=== PATIENT | female | born 1955 | race Caucasian/White ===

== ENCOUNTER 2018-03-19 07:41 | Day surgery (SDC) | payer OTHER, SELFPAY ==
[2018-03-19 08:26] VITALS: BMI 20.1
[2018-03-19 08:33] VITALS: BP 127/80; PULSE 69; RESP 12; TEMP 36.9; O2SAT 100
[2018-03-19] MEDS: SODIUM CHLORIDE 0.9% 1,000 ML 21 ML IV (10:00)
--- NOTE | 2018-03-19 10:12 | P.HP_ITS ---
History of Present Illness Date Patient Seen: 03/19/18 Time Patient Seen: 10:09 Chief complaint: [id number] Narrative: Patient is a woman whose last colonoscopy was 10 years ago she is here for colonoscopy. She is post liver transplant. She has been having some left-sided abdominal discomfort and the [facility] where she is followed insisted she have a colonoscopy. 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) Surgical History Liver transplant recipient (Chronic) History of third molar tooth extraction Status post appendectomy Status post cholecystectomy Status post tonsillectomy and adenoidectomy Family & Social History Family History: Reviewed 03/19/18 by Alex Turcios MD Social History: household members spouse Meds Home Medications Medication Instructions Recorded Confirmed Type Diphenhydramine Hydrochloride 25 mg PO Q DAY #0 05/12/12 03/19/18 History (BENADRYL) metoprolol tartrate 50 mg PO BID #0 05/12/12 03/19/18 History tacrolimus 1 mg PO BID #0 05/12/12 03/19/18 History estradiol [Vagifem] 10 mcg VG SEE INSTRUCTIONS #36 tab 08/11/17 03/19/18 Rx multivitamin 1 tab PO DAILY 03/19/18 03/19/18 History Allergies Allergy/AdvReac Type Severity Reaction Status Date / Time Sulfa (Sulfonamide Allergy Unknown Nausea Verified 03/19/18 08:23 Antibiotics) Review of Systems Review of Systems All systems reviewed & are unremarkable except as noted in HPI and below Exam Vital Signs (past 8 hours): - 03/19/18 08:33 Temperature 98.5 F Pulse Rate 69 Respiratory Rate 12 Blood Pressure 127/80 Pulse Oximetry 100 Oxygen Delivery Method Room Air Narrative Exam Narrative: Operative no apparent distress. Thin. Lungs clear to auscultation without rales or rhonchi. Heart regular rate and rhythm without murmur gallop. Abdomen several incision the upper abdomen. No hernias appreciated. Abdomen is soft nontender without mass. No hernias appreciated. Alert and oriented x3. Assessment & Plan Plan: Assessment/Plan Narrative: For screening colonoscopy. I have discussed the procedure and the rationale with the patient including risks of bleeding, perforation which would necessitate a major operation, failure to find remove all lesions and the potential to tattoo. They appeared to understand and wished to proceed.
--- NOTE | 2018-03-19 10:13 | PM.PREOP ---
Pre-operative Note Interval Note Pre-op Check: Yes History & Physical exam performed today by Physician Changes: No ASA Class (for procedural sedation): III
[2018-03-19] MEDS: MIDAZOLAM 5 MG/5 ML VIAL IV (10:15)
[2018-03-19] MEDS: fentaNYL 250 MCG/5 ML INJ IV (10:16)
--- NOTE | 2018-03-19 10:56 | P.OP.ENDO_ITS ---
Operative Date/Time/Diagnoses Date of procedure: 03/19/18 Time of procedure: 10:49 Pre-op diagnosis: Screening exam. History of colonoscopy 10 years ago. Post-op diagnosis: same Procedure & Clinicians Study performed: Colonoscopy Same procedure as scheduled: Yes Indications: Screening. Patient is immunosuppressed due to a liver transplant. Procedure Notes SCOAP/Timeout: Performed Procedure in detail: The patient was placed in the left lateral decubitus position and underwent IV sedation directed by the surgeon consisting of fentanyl and Versed. Digital exam was remarkable for some small tags. The scope was inserted and advanced through the rectum into the sigmoid, descending , transverse, and ascending colon. The patient seemed to have was some loss of haustra and also a little bit pale mucosa. Advancing was quite difficult through much of this area due to redundancy. Pressure was applied, the patient was repositioned, the scope stiffener was inserted, all in an effort to get to the cecum.. The cecum was reached identified by the ileocecal valve and the appendiceal opening. The scope was gradually brought out. No polyps were found. The scope ultimately was retroflexed in the rectum. The appearance was remarkable for some scarring at the anus but no active disease. I did note on egress Ng that the patient appeared to have fairly friable mucosa. My insertion pressures were not that great and yet she had multiple areas of traumatized mucosa which was a bit unusual.. The scope was removed and the patient tolerated the procedure well. Patient had no abdominal pain at completion of the exam. Scope withdrawal time: About 8 and 0.5 min Sedation minutes: 34 Findings: other findings (Redundant colon. Easily traumatized mucosa.) Specimen(s): none sent Complications: none Recommendations: Other recommendation (As per the recommendation of your transplant team. Certainly no later than 10 years however. Probably much sooner like 5 years.) Follow up: as needed Disposition: PACU
[2018-03-19 11:11] VITALS: BP 95/66; PULSE 64; RESP 15; TEMP 36.7; O2SAT 98
[2018-03-19 11:46] VITALS: BP 103/65; PULSE 73; RESP 16; TEMP 36.8; O2SAT 98
[2018-03-19 12:10] VITALS: BP 113/66; PULSE 72; RESP 16; TEMP 36.6; O2SAT 98
--- NOTE | 2018-03-19 15:56 | SUR.PHASEII ---
Addendum entered by Petty Tamez R.N. 03/19/18 15:57: when ready and left in stable condition. once pt left unit, stated she got nauseated on ride to car, got into car and vomited clear yellow liquid, was notified by er staff of problem, went out to see pt, pt by then stated she felt better, was not diphoretic, lips pink in color. hr regular. pt stated she wanted to go home, pt left in car. Original Note: late entry: pt was ready to go, assisted to dress by , pt left w
== END 2018-03-19 12:35 | disposition home or self-care (01) ==
PROVIDERS: PCP Family Medicine; Visit Provider Specialist
PROC: 0DJD8ZZ Inspection of Lower Intestinal Tract, Via Natural or Artificial Opening Endoscopic (ICD-10-PCS; CPT 45378; principal; 2018-03-19 08:45)
DX: Z12.11 Encounter for screening for malignant neoplasm of colon (principal); Z94.4 Liver transplant status
CPT/HCPCS: 45378; 99152; 99153; J2250; J3010

== ENCOUNTER → 2020-01-30 11:08 | Outpatient (CLI) | payer OTHER, SELFPAY ==
--- NOTE | 2020-01-30 | DI.US.S_ITS ---
PROCEDURE: US PELVIC COMPLETE INDICATIONS: POSTMENUPAUSAL BLEEDING TECHNIQUE: Real-time scanning was performed of the pelvic organs, with image documentation. Additional endovaginal scanning was necessary due to incomplete visualization of the adnexal and endometrial structures by transabdominal scanning. COMPARISON: None. FINDINGS: Transabdominal scanning: Limited scanning through the kidneys shows no hydronephrosis. A small amount of free fluid can be seen within the cul-de-sac as well as within the left adnexal region. Endovaginal scanning: Uterus: Uterus is normal in size at 7.7 x 3.6 x 4.8 cm. The endometrium measures 5 mm in combined thickness. Echogenic foci can be seen along the cervix, which are attributed to calcification. Ovaries: The right ovary measures 2.2 x 0.9 x 2.2 cm. The left ovary measures 2.3 x 1.4 x 1.3 cm. The ovaries have a normal sonographic appearance. No adnexal masses are seen. Prominent vessels can be seen within the pelvis. IMPRESSION: The endometrial stripe is minimally thickened in this patient with a given history of postmenopausal bleeding. Differential diagnosis includes endometrial neoplasm and endometrial hyperplasia. Recommend correlation with endometrial histology, as clinically appropriate. A mild amount of free fluid can be seen within the pelvis, which is abnormal for a patient of this age. No adnexal masses are seen. Prominent vessels can be seen within the pelvis, which may be related to pelvic varices. Dictated by: Chris Grissom M.D. on 01/30/2020 at 11:47 Approved by: Chris Grissom M.D. on 01/30/2020 at 11:50
== END ==
PROVIDERS: PCP Obstetrics & Gynecology; Referring Provider Family Medicine; Visit Provider Family Medicine
DX: N95.0 Postmenopausal bleeding (principal)
CPT/HCPCS: 76830; 76856

== ENCOUNTER 2020-02-13 01:28 | Emergency (ER) | payer OTHER, SELFPAY ==
--- NOTE | 2020-02-13 01:35 | ED.FALL ---
HPI - Fall General Chief Complaint: Fall Stated Complaint: left ankle injury/hit head and left elbow Time Seen by Provider: 02/13/20 01:33 Source: patient and family Mode of arrival: Wheelchair Limitations: no limitations History of Present Illness HPI Narrative: 64-year-old female nonsmoker with history of hypertension and liver transplant presents with her in the chief complaint left elbow and left ankle pain after a fall injury just prior to arrival. She was caring a new puppy and misstepped on the last stair and fell down, landing on her left elbow and rolling her ankle. She denies any head, neck or back pain. She had no loss of consciousness and has full recall. She denies any chest pain or shortness of breath. She has had no blurred vision or focal neurologic findings. She does not take any blood thinners and denies use of alcohol or street drugs. Initially her left elbow did hurt all that bad but has some increasing discomfort which is worse with range of motion and improves with rest. Her primary concern is of the lateral portion of her left ankle which hurts significantly worse with ambulation or palpation. MD complaint: fall Onset (ago): minute(s) Fall from: standing and down stairs (#) (1) Fall witnessed: no Place fall occurred: home Loss of consciousness: none Prolonged down time: no Symptoms prior to fall: none Context: tripped/slipped Severity: mild Quality: aching Associated symptoms (after fall): denies Related Data Home Medications Medication Instructions Recorded Confirmed Diphenhydramine Hydrochloride 25 mg PO Q DAY #0 05/12/12 02/02/20 (BENADRYL) metoprolol tartrate 50 mg PO BID #0 05/12/12 02/02/20 tacrolimus 1 mg PO BID #0 05/12/12 02/02/20 multivitamin 1 tab PO DAILY 03/19/18 02/02/20 Previous Rx's Medication Instructions Recorded estradiol 10 mcg vaginal tablet 10 mcg VAGINAL 3XW #36 tab 10/03/19 Allergies Allergy/AdvReac Type Severity Reaction Status Date / Time Sulfa (Sulfonamide Allergy Unknown Nausea Verified 02/02/20 16:12 Antibiotics) fentanyl AdvReac Severe nausea and Verified 02/02/20 16:12 vomiting Review of Systems Constitutional Constitutional: Denies chills, Denies fatigue, Denies fever(s), Denies frequent falls, Denies lethargy and Denies weakness Eyes Eyes: Denies change in vision, Denies eye discharge, Denies irritation and Denies loss of vision ENT Ears, Nose, Mouth, and Throat: Denies change in voice, Denies dizziness, Denies neck pain, Denies sore throat and Denies throat swelling Cardiovascular Cardiovascular: Denies chest pain, Denies irregular heart rhythm, Denies lightheadedness, Denies palpitations, Denies dyspnea, Denies dyspnea on exertion and Denies orthopnea Respiratory Respiratory: Denies cough, Denies dyspnea, Denies dyspnea on exertion and Denies wheezing Gastrointestinal Gastrointestinal: Denies abdominal pain, Denies change in bowel habits, Denies diarrhea, Denies nausea and Denies vomiting Musculoskeletal Musculoskeletal: Reports deformity, Reports arthralgias, Reports joint swelling, Denies neck pain and Denies numbness Integumentary/Breasts Skin/Breast: Denies pruritus, Denies erythema, Denies rash and Denies wounds Neurologic Neurologic: Denies behavioral changes, Denies confusion, Denies dizziness, Denies frequent falls, Denies loss of vision, Denies numbness and Denies weakness Psychiatric Psychiatric: Denies anxiety, Denies behavioral changes, Denies confusion, Denies depression, Denies homicidal ideation and Denies suicidal ideation Endocrine Endocrine: Denies fatigue, Denies flushing and Denies palpitations Hematologic/Lymphatic Hematologic/Lymphatic: Denies easy bruising Allergic/Immunologic Allergic/Immunologic: Denies urticaria, Denies throat swelling and Denies wheezing 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) Surgical History History of third molar tooth extraction Liver transplant recipient (Chronic) Status post appendectomy Status post cholecystectomy Status post tonsillectomy and adenoidectomy Social History household members: spouse Smoking Status: Never smoker Smoking Status: Never smoker Exam Initial Vital Signs Initial Vital Signs: Vital Signs Temperature 98.3 F 02/13/20 01:43 Pulse Rate 70 02/13/20 01:43 Respiratory Rate 18 02/13/20 01:43 Blood Pressure 164/90 H 02/13/20 01:43 Pulse Oximetry 98 02/13/20 01:43 Procedures Orthopedic Splinting/Casting Injury #1: Side: left Lower Extremity Injury Location: ankle Lower Extremity Immobilizer: boot orthosis Post splinting neuro exam: intact Post splinting vascular exam: intact Placed by: Nursing Course Orders Ordered: ED Orders 02/13/20 01:54 XR ankle LT min 3V Stat XR elbow LT min 3V Stat XR foot LT min 3V Stat Vital Signs Vital signs: Vital Signs - 8 hr 02/13/20 01:43 02/13/20 02:12 Temperature 98.3 F Pulse Rate 70 Pulse Rate [Left Dorsalis Pedis] 68 Pulse Rate [Left Radial] 68 Respiratory Rate 18 Blood Pressure 164/90 H Pulse Oximetry 98 Discharge Plan Departure Patient Disposition: Home Clinical Impression: Contusion of elbow Qualifiers: Encounter type: initial encounter Laterality: left Qualified Code(s): S50.02XA - Contusion of left elbow, initial encounter Ankle fracture, left Qualifiers: Encounter type: initial encounter Fracture type: closed Qualified Code(s): S82.892A - Other fracture of left lower leg, initial encounter for closed fracture Discharge Date/Time: 02/13/20 02:57 Instructions: How to Prevent Falls Activity Restrictions/Additional Instructions: *You have been diagnosed with [small fracture of your left distal fibula, contusion of left elbow as a consequence of your fall] *What to do: *Take medications as directed *Follow up with your primary care provider in 2-3 days, call for an appointment. Let them know you were seen in the Emergency Department and that we ask that you be seen in follow up *Return to ER if you should have any new, worsening or concerning symptoms Radiographic study has been interpreted by an emergency physician. The official diagnosis by radiology will be performed within the next 24 hours and should there be any change in outcome we will notify you of how to proceed. Prescriptions: No Action tacrolimus 1 MG capsule 1 mg PO BID Qty: 0 RF: 0 metoprolol tartrate 50 MG tablet 50 mg PO BID Qty: 0 RF: 0 Diphenhydramine Hydrochloride (BENADRYL) 25 mg PO Q DAY Qty: 0 RF: 0 estradiol [Vagifem] 10 mcg tablet 10 mcg Vaginal 3XW Qty: 36 RF: 3 multivitamin Tablet 1 tab PO DAILY RF: 0 Referrals: Mary Armstrong MD [Primary Care Provider] -
[2020-02-13 01:43] VITALS: BP 164/90; PULSE 70; RESP 18; TEMP 36.8; O2SAT 98; BMI 23.0
--- NOTE | 2020-02-13 01:54 | DI.RAD.S_ITS ---
PROCEDURE: XR ANKLE LT MIN 3V INDICATIONS: fall with pain TECHNIQUE: 3 views of the ankle were acquired. COMPARISON: [facility], CR, XR FOOT LT MIN 3V, 02/13/2020, 1:58. [facility], CR, XR ELBOW LT MIN 3V, 02/13/2020, 1:58. FINDINGS: Bones: There is a faintly seen, minimally displaced fracture of the distal fibula, with likely intra-articular involvement. No additional fractures are detected. The talar dome demonstrates no bib abnormality. No suspicious lytic or blastic lesions are seen. Soft tissues: Soft tissue swelling is seen laterally. IMPRESSION: Minimally displaced distal fibular fracture. Note: No significant discrepancy from the preliminary report. Dictated by: Chris Grissom M.D. on 02/13/2020 at 8:20 Approved by: Chris Grissom M.D. on 02/13/2020 at 8:21
--- NOTE | 2020-02-13 01:54 | DI.RAD.S_ITS ---
PROCEDURE: XR ELBOW LT MIN 3V INDICATIONS: fall with pain TECHNIQUE: 3 views of the elbow were acquired. COMPARISON: [facility], CR, XR FOOT LT MIN 3V, 02/13/2020, 1:58. [facility], CR, XR ANKLE LT MIN 3V, 02/13/2020, 1:58. FINDINGS: Bones: No fractures or dislocations. No suspicious bony lesions. Soft tissues: No elbow joint effusion. No suspicious soft tissue calcifications. IMPRESSION: Normal elbow plain films. Note: No significant discrepancy from the preliminary report. Dictated by: Chris Grissom M.D. on 02/13/2020 at 8:21 Approved by: Chris Grissom M.D. on 02/13/2020 at 8:21
--- NOTE | 2020-02-13 01:54 | DI.RAD.S_ITS ---
PROCEDURE: XR FOOT LT MIN 3V INDICATIONS: fall with pain TECHNIQUE: 3 views of the foot were acquired. COMPARISON: [facility], CR, XR ANKLE LT MIN 3V, 02/13/2020, 1:58. [facility], CR, XR ELBOW LT MIN 3V, 02/13/2020, 1:58. FINDINGS: Bones: There is a minimally displaced distal fibular fracture seen, with apparent intra-articular involvement. No additional fractures are detected. No suspicious lytic or blastic lesions are seen. Age-appropriate bony degenerative changes are seen. Soft tissues: No tibiotalar joint effusion. Achilles tendon appears normal. IMPRESSION: Minimally displaced distal fibular fracture. Dictated by: Chris Grissom M.D. on 02/13/2020 at 8:22 Approved by: Chris Grissom M.D. on 02/13/2020 at 8:22
[2020-02-13 02:12] VITALS: PULSE 68
== END 2020-02-13 02:57 | disposition home or self-care (01) ==
PROVIDERS: Emergency Provider Emergency Medicine; PCP Obstetrics & Gynecology
DX: S82.832A Other fracture of upper and lower end of left fibula, initial encounter for closed fracture (principal); S50.02XA Contusion of left elbow, initial encounter; W10.8XXA Fall (on) (from) other stairs and steps, initial encounter
CPT/HCPCS: 73080; 73610; 73630; 99283

== ENCOUNTER → 2020-04-02 10:16 | Outpatient (CLI) | payer OTHER, SELFPAY ==
[2020-04-03 22:28] LABS: COVID19 Sendout Not Detected (Not Detect)
== END ==
PROVIDERS: Visit Provider Physician Assistant
DX: Z11.59 Encounter for screening for other viral diseases (principal)
CPT/HCPCS: 87635

== ENCOUNTER 2020-04-05 08:30 | Day surgery (SDC) | payer OTHER, SELFPAY ==
[2020-04-02 07:51] VITALS: BMI 21.1
[2020-04-05] VITALS (16 sets, daily range): BP systolic 85–147; BP diastolic 51–84; PULSE 65–82; RESP 12–20; TEMP 36.2–37; O2SAT 90–100; BMI 20.4
--- NOTE | 2020-04-05 | PATH_ITS ---
[facility] Accession Number: [id number] . 01 Material submitted: . PART A: endometrium - ENDOMETRIAL CURETTINGS PART B: endocervix - ENDOCERVICAL CURETTINGS . 02 Diagnosis: A. Endometrial Curettings: Avulsed portions of squamous mucosa, favor reactive/atrophic change; negative for squamous dysplasia or malignancy. Scant strips of endometrial glandular epithelium in a background of fibroinflammatory debris and blood, suggestive of atrophic change; please see comment. Additional levels through the block are noncontributory. . B. Endocervical Curettings: Scant glandular elements, favor origin from endocervix; negative for glandular dysplasia or malignancy. Please see comment. Possible portions of lower uterine segment; negative for glandular hyperplasia, cytologic atypia, or malignancy. Additional levels through the block are noncontributory. [facility] 04/10/2020 1634 Local . 02 Comment: A. Due to the scant nature of this biopsy, it may not be entirely sales representative meats of this patient's endometrium; additional sampling could be considered, if clinically appropriate. . B. Due to the scant nature of this biopsy, it may not be entirely sales representative meats of this patient's endocervix; additional sampling could be considered, if clinically appropriate. . 02 Electronically signed: . Enedina Cadet MD, Pathologist NPI- [id number] . 01 Gross description: . A. Specimen A is received in formalin, labeled endometrial curettings and consists of multiple finney-pink fragments of soft tissue, measuring 0.6 x 0.5 x 0.2 cm in aggregate. The specimen is filtered and entirely submitted in cassette A1. B. Specimen B is received in formalin, labeled endocervical curettings and consists of multiple finney-pink fragments of soft tissue admixed with clotted blood, measuring 1.0 x 0.7 x 0.2 cm in aggregate. The specimen is filtered and entirely submitted in cassette B1. ([id number]) /MRV 04/06/2020 1537 Local . 02 Pathologist provided ICD-10: N82.0, N95.0 . 02 CPT . 254559, [id number] Performed at: 01 [facility] [address] [place] [address], [place], [place] [id number] MD Mohsen Arellano MD Phone: [phone] Performed at: [address] [facility] [id number] [place], [place] [id number] MD Annabelle Medeiros MD Phone: [phone]
[2020-04-05] MEDS: LACTATED RINGERS 1,000 ML 42 ML IV (09:05)
--- NOTE | 2020-04-05 09:48 | PM.HP.1 ---
History of Present Illness History of Present Illness Date Patient Seen: 04/05/20 Time Patient Seen: 09:48 Chief complaint: SDC Narrative: Patient is a 65-year-old with postmenopausal bleeding, endometrial hyperplasia, and an echogenic focus and the cervix. She is here for a D&C hysteroscopy and possible polypectomy. 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) Left fibular fracture (Acute 02/13/20) Surgical History History of third molar tooth extraction Liver transplant recipient (Chronic) Status post appendectomy Status post cholecystectomy Status post tonsillectomy and adenoidectomy Family & Social History Social History: household members spouse Tobacco & Substance use: Smoking Status Never smoker alcohol intake frequency holiday/special occasion Substance Use Type does not use Meds Home Medications and Allergies Home Medications Medication Instructions Recorded Confirmed Type Diphenhydramine Hydrochloride 25 mg PO Q DAY #0 05/12/12 04/02/20 History (BENADRYL) metoprolol tartrate 50 mg PO BID #0 05/12/12 04/05/20 History tacrolimus 0.5 mg PO BID #0 05/12/12 04/05/20 History multivitamin 1 tab PO DAILY 03/19/18 04/02/20 History estradiol 10 mcg vaginal tablet 10 mcg VAGINAL 3XW #36 tab 10/03/19 04/05/20 Rx Allergies Allergy/AdvReac Type Severity Reaction Status Date / Time fentanyl Allergy Severe nausea and Verified 04/05/20 08:54 vomiting Sulfa (Sulfonamide Allergy Unknown Nausea Verified 04/05/20 08:52 Antibiotics) codeine AdvReac Intermediate Nausea Verified 04/05/20 08:52 Exam Vital Signs (past 8 hours): - 04/05/20 09:06 Temperature 97.6 F Pulse Rate 68 Respiratory Rate 16 Blood Pressure 144/84 H Pulse Oximetry 100 Oxygen Delivery Method Room Air Narrative Exam Narrative: HEENT: No thyromegaly, no anterior cervical or supraclavicular lymphadenopathy. Lungs:Clear to auscultation bilaterally, no wheezes. Cardiovascular: Regular rate and rhythm, no murmurs, rubs, or gallops. Abdomen: No scars. No hepatosplenomegaly. No masses palpable. External genitalia: Normal Vagina: Normal Cervix: Normal Bimanual exam: 7 Week size anteverted uterus. Mobile. Rectal: No masses. Assessment & Plan Assessment & Plan narrative: Assessment: 65-year-old with endometrial hyperplasia, postmenopausal bleeding, and an echogenic focus and the cervix on ultrasound Plan: D&C hysteroscopy with possible polypectomy The risks, benefits, and alternatives to the procedure were explained to the patient. The risks including bleeding, infection, and uterine perforation. She understands these risks and agrees to proceed. A full par Q was held and consent form was signed. COVID-19 COVID-19 status: Negative Result date/Date tested (Pos, Neg/Pending): 04/03/20 Time Spent With Patient Time with patient: 15-24 minutes
--- NOTE | 2020-04-05 09:50 | PM.PREOP ---
Pre-operative Note COVID-19 COVID-19 status: Negative Result date/Date tested (Pos, Neg/Pending): 04/03/20 Interval Note History & Physical reviewed/Exam performed by Physician: Yes Changes to H&P: No H&P completed within 30 days and has changed as indicated here:: 04/05/20
--- NOTE | 2020-04-05 10:18 | SUR.OPER ---
Lithotomy on padded OR bed, head on pillow, arms secured on padded arm boards at <90 degrees abduction. Legs secured in padded yellow fins stirrups.
--- NOTE | 2020-04-05 10:40 | PM.GYNOP.1 ---
Operative Date/Time/Diagnoses Date of procedure: 04/05/20 Time of procedure: 10:40 Pre-op diagnosis: Postmenopausal bleeding Endometrial hyperplasia by ultrasound Hyperechoic area in the endocervical canal Post-op diagnosis: same Procedure & Clinicians Procedure: Procedures Operation Date: 04/05/20 09:45 Actual Procedures Side Surgeon p Hysteroscopy D&C, fractional: endocervical/endometrial Mary Armstrong MD Indications: Postmenopausal bleeding Endometrial hyperplasia on ultrasound Echogenic focus in the cervical canal on ultrasound Surgeon: Mary Armstrong Anesthesia Type: General (LMA) Operative Notes Findings: Seven week size anteverted uterus Both fallopian tube ostia observed No polyps, fibroids, or thickened areas No mass in the cervix Closure Type: not applicable Specimen(s): endometrial curettings and other (Endocervical curettings) Estimated blood loss (mL): 5 Blood products transfused: none Procedure in detail: After informed consent was obtained, the patient was taken to the operating room where she was placed in the dorsal supine position. After adequate LMA general anesthesia was achieved, she was placed in the dorsal lithotomy position, and prepped and draped in the usual sterile fashion. A time-out was performed. A bivalve speculum was placed into the vagina and the anterior lip of the cervix grasped with a single-tooth tenaculum. The cervical os was sequentially dilated to the # 8 Hegar dilator. The hysteroscope passed easily into the endometrial cavity. Both fallopian tube ostia were observed. There were no polyps, fibroids, or thickened areas of the endometrium observed. In the endocervix there were a few calcifications seen on hysteroscope. No polyps. The hysteroscope was removed from the uterus and cervix. Gentle sharp curettage of the endocervix was performed yielding moderate amount of curettings. Sharp curettage of the endometrium was performed yielding moderate amount of curettings. The instruments were removed from the uterus. The single-tooth tenaculum was removed from the anterior lip of the cervix. The bivalve speculum was removed from the vagina. Sponge, lap, and instrument counts were correct x2. The patient tolerated the procedure well, and was taken to PACU in stable condition. Complications: none Post-operative Condition: stable Disposition: PACU Plan for aftercare: Home after recovery
--- NOTE | 2020-04-05 10:55 | SUR.PHASEI ---
Pt obstructed her airway and Dr. Anne placed an oral airway in and placed a nasal cannula with O2 on her pt sleepy.
[2020-04-05] MEDS: ONDANSETRON 4 MG ODT SL (13:55)
--- NOTE | 2020-04-05 13:56 | SUR.PHASEII ---
Assumed care at this time from Torey Ivey. Stated d/c instructions had been gone over. Incentive spirometer encourage for home use, and placed in bag along with extra emisis bags. Pt dressed then had sudden onset of nausea, dry heaving, small amopunt of yellow green emisis in bag. Cool wash cloth to head, quease ease to bedside. Dr. Anne here, order for ondansetron obtained and pt medicated.
--- NOTE | 2020-04-05 14:20 | SUR.PHASEII ---
Pt stated she was ready to go, no further nausea, pt left when ready and left in stable condition.
--- NOTE | 2020-04-05 14:25 | SUR.PHASEII ---
1305, PT TOLERATING COFFEE AND APPLE SAUCE, UP TO BR TO VOID, CONTINUES TO USE INCENTIVE SPIROMETER AND COUGH AND DEEP BREATH, LUNGS CLEAR TO AUSCULTATION, NO DRAINAGE ON PAULIE PAD AND NO C/O PAIN VOICED.
== END 2020-04-05 14:15 | disposition home or self-care (01) ==
PROVIDERS: PCP Family Medicine; Referring Provider Obstetrics & Gynecology; Visit Provider Obstetrics & Gynecology
PROC: 0UDB8ZZ Extraction of Endometrium, Via Natural or Artificial Opening Endoscopic (ICD-10-PCS; CPT 58558; principal; 2020-04-05 09:45)
DX: N95.0 Postmenopausal bleeding (principal); D84.821 Immunodeficiency due to drugs
CPT/HCPCS: 58558; J1100; J1170; J1885; J2250; J2405; J2704; J3010

== ENCOUNTER 2020-04-07 00:46 | Inpatient (IN) | payer OTHER, SELFPAY ==
[2020-04-07] VITALS (40 sets, daily range): BP systolic 89–134; BP diastolic 52–77; PULSE 80–110; RESP 13–23; TEMP 36.9–38.1; O2SAT 97–100; BMI 20.1
--- NOTE | 2020-04-07 | DI.RAD.S_ITS ---
PROCEDURE: XR ACUTE ABDOMEN SERIES INDICATIONS: POST OP TECHNIQUE: One view chest and two views of the abdomen were acquired. COMPARISON: [facility], CT, CT ABDOMEN PELVIS WO CON, 04/07/2020, 5:50. FINDINGS: Surgical changes and devices: Upper abdominal postoperative clips are seen. Chest: Lungs are clear. Heart size is normal. No pleural effusions. No pneumoperitoneum. Abdomen: Generalized gaseous prominence can be seen of the small bowel and the colon, yet without bib dilatation. There is also gaseous distention of the stomach. No suspicious calcifications. Visualized solid organ contours appear normal. Bones: No suspicious bony lesions. Both ureteral jets are seen into the bladder. IMPRESSION: Generalized gaseous prominence of the stomach, small bowel, and colon, without frankly dilated loops. No significant free air is seen on these images. Upper abdominal postoperative clips are seen. Dictated by: Chris Grissom M.D. on 04/07/2020 at 10:36 Approved by: Chris Grissom M.D. on 04/07/2020 at 10:39
--- NOTE | 2020-04-07 00:53 | ED.GENADULT ---
HPI - General Adult General Chief complaint: Abdominal Pain Stated complaint: lower abdominal pain Time Seen by Provider: 04/07/20 00:49 Source: patient, family and EMS Mode of arrival: EMS Limitations: no limitations History of Present Illness HPI narrative: Patient is a 65-year-old female brought in by EMS for evaluation of a syncopal episode, fatigue, lightheadedness when she stands up and 1 episode of vomiting. Patient's history is significant for a liver transplant. She is on tacrolimus secondary to this. Also has pancytopenia and splenomegaly. Approximately 48 hours ago underwent a D&C by bit sharpener operator for of biopsy secondary to postmenopausal bleeding. Patient states that she ?always? has reactions to anesthesia which include nausea and vomiting. Review of the surgical note shows that the procedure was relatively unremarkable with minimal blood loss. Patient states she is having some lower abdominal pain that started within the past 24 hours. She describes this as a bad menstrual cramp. She is also having some vaginal spotting but no bleeding. She states that after she arrived home from the procedure she did have some nausea. She was given a prescription for a Phenergan suppository. She use this which she states did not improve her nausea all that much. She went to bed last evening and woke up several hours ago and had an episode which she describes as a very large black vomitus. She then became very dizzy. Her had to help her down to the ground. She did not hit her head. Question as to whether not she lost consciousness and if she did it was for just a very short period of time. EMS was called. She received Zofran in route. Has had no prior episodes of vomiting or nausea since receiving the Zofran. She states that she is laying down she feels much better. She has not had any diarrhea or blood in her stool. Related Data Home Medications Medication Instructions Recorded Confirmed Diphenhydramine Hydrochloride 25 mg PO Q DAY #0 05/12/12 04/02/20 (BENADRYL) metoprolol tartrate 50 mg PO BID #0 05/12/12 04/05/20 tacrolimus 0.5 mg PO BID #0 05/12/12 04/05/20 multivitamin 1 tab PO DAILY 03/19/18 04/02/20 Previous Rx's Medication Instructions Recorded estradiol 10 mcg vaginal tablet 10 mcg VAGINAL 3XW #36 tab 04/27/20 ondansetron HCl [Zofran] 4 mg PO Q6H #7 tab 04/05/20 promethazine 25 mg MO Q4-6H PRN #1 each 04/05/20 Allergies Allergy/AdvReac Type Severity Reaction Status Date / Time fentanyl Allergy Severe nausea and Verified 04/05/20 08:54 vomiting Sulfa (Sulfonamide Allergy Unknown Nausea Verified 04/05/20 08:52 Antibiotics) codeine AdvReac Intermediate Nausea Verified 04/05/20 08:52 Review of Systems Constitutional Constitutional: Denies fever(s) and Denies headache(s) ENT Ears, Nose, Mouth, and Throat: Denies headache(s) Cardiovascular Cardiovascular: Denies chest pain and Denies dyspnea Respiratory Respiratory: Denies dyspnea Gastrointestinal Gastrointestinal: Reports abdominal pain, Denies change in bowel habits, Reports coffee ground emesis, Reports nausea and Reports vomiting Genitourinary Genitourinary: Denies dysuria Genitourinary: Denies dysuria and Reports vaginal discharge (Spotting) Musculoskeletal Musculoskeletal: Denies arthralgias, Denies back pain and Denies myalgias Integumentary/Breasts Skin/Breast: Denies lesions and Denies rash Neurologic Neurologic: Denies behavioral changes and Denies headache(s) Psychiatric Psychiatric: Denies behavioral changes Hematologic/Lymphatic Hematologic/Lymphatic: Denies easy bleeding and Denies easy bruising Allergic/Immunologic Allergic/Immunologic: Denies urticaria 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) Left fibular fracture (Acute 02/13/20) Post-menopausal bleeding (Acute) Primary biliary cholangitis (Acute) Surgical History History of third molar tooth extraction Liver transplant recipient (Chronic) Status post appendectomy Status post cholecystectomy Status post D&C (Acute) Status post tonsillectomy and adenoidectomy Family History (Updated 04/07/20 @ 04:17 by Jimenez Hawthorne MD) Mother Dementia Father Alzheimer disease Social History household members: spouse Smoking Status: Never smoker Smoking Status: Never smoker alcohol intake frequency: holidays/special occasions only Substance Use Type: does not use Exam Initial Vital Signs Initial Vital Signs: Vital Signs Temperature 98.8 F 04/07/20 00:53 Pulse Rate 84 04/07/20 00:53 Respiratory Rate 16 04/07/20 00:53 Blood Pressure 93/62 04/07/20 00:53 Pulse Oximetry 100 04/07/20 00:53 Const General: cooperative and comfortable Limitations: mental status not altered HENMT Head: normal to inspection and normocephalic Resp Effort & Inspection: normal respiratory effort Auscultation: clear to auscultation bilaterally Cardio Rate: regular rate Rhythm: regular rhythm GI Inspection: non-distended Palpation: soft and tender (Lower abdomen) Skin General: pallor Lesions: no lesions Rashes: no rashes Neuro General: patient alert, patient awake and patient oriented x3 Cognition: normal cognition Speech: speech normal Extrem General: capillary refill normal Psych Appearance: grossly normal and well kempt Scores GCS Samina coma scale eye opening: Spontaneous Samina coma scale verbal response: Orientated [place] coma scale motor response: Obey commands Samina coma scale total score: 15 Course Orders Ordered: ED Orders 04/07/20 00:53 Complete Blood Count AUTO DIFF Stat Comprehensive Metabolic Panel Stat Lipase Stat Procalcitonin Stat 04/07/20 00:54 EKG-12 Lead Stat 04/07/20 01:20 Packed Cells Stat Type and Screen Stat 04/07/20 02:20 COVID19 -ED/INPAT/OR/L&D Stat 04/07/20 02:36 US pelvic complete Stat 04/07/20 02:53 Consult to General Surgery Stat 04/07/20 03:40 Lactate (Lactic Acid) Stat 04/07/20 03:45 Blood Culture Stat Pantoprazole Sodium 80 mg/ (Sodium Chloride) 100 mls @ 10 mls/hr IV CONT JUAN Last Admin: 04/07/20 01:50 Dose: 8 mg/hr, 10 mls/hr Documented by: KGALLAG Sodium Chloride (Normal Saline 0.9%) 1,000 mls @ 100 mls/hr IV CONT JUAN Naloxone HCl (Narcan) 0.2 mg IV Q2MIN PRN PRN Reason: Opiate Reversal Pantoprazole Sodium (Protonix) 40 mg IV DAILY JUAN Tacrolimus (Prograf) 0.5 mg PO BID JUAN Discontinued Medications Sodium Chloride (Normal Saline 0.9%) 1,000 mls @ 1,000 mls/hr IV BOLUS ONE Stop: 04/07/20 01:52 Last Infusion: 04/07/20 02:00 Dose: 0 mls/hr Documented by: Admin: 04/07/20 01:00 Dose: 1,000 mls/hr Documented by: TONY Pantoprazole Sodium (Protonix) 80 mg IV NOW ONE Stop: 04/07/20 01:38 Last Admin: 04/07/20 01:50 Dose: 80 mg Documented by: FLORA Vital Signs Vital signs: Vital Signs - 8 hr 04/07/20 00:53 04/07/20 01:08 04/07/20 01:25 Temperature 98.8 F Pulse Rate 84 81 93 H Respiratory Rate 16 18 18 Blood Pressure 93/62 90/55 L 94/52 L Pulse Oximetry 100 100 04/07/20 01:30 04/07/20 02:00 04/07/20 02:30 Temperature Pulse Rate 80 86 85 Respiratory Rate 15 18 13 Blood Pressure 101/55 L 106/58 L 96/56 L Pulse Oximetry 04/07/20 03:02 04/07/20 03:20 04/07/20 03:30 Temperature 99 F 99 F Pulse Rate 99 H 90 88 Respiratory Rate 15 20 19 Blood Pressure 95/55 L 134/60 100/59 L Pulse Oximetry 98 100 Medical Decision Making Medical Records Medical records reviewed: Yes I reviewed the patient's medical records. Lab Data Lab results reviewed: Yes I reviewed the patient's lab results. Result diagrams: 04/07/20 00:53 04/07/20 00:53 Labs: Lab Results 04/07/20 04/07/20 04/07/20 Range/Units 00:53 00:53 00:53 WBC 12.5 H (4.5-11.0) X10^3/uL RBC 2.48 L (4.0-5.2) X10^6/uL Hgb 7.4 L (12.0-16.0) g/dL Hct 22.5 L (36-46) % MCV 90.7 (80-100) fL MCH 29.9 (26-34) PG MCHC 33.0 (30-36) % RDW 13.9 (11.6-14.8) % Plt Count 159 (150-400) X10^3/uL Neut % (Auto) 79.3 H (50-75) % Lymph % (Auto) 10.7 L (25-40) % [place] % (Auto) 8.5 (3-14) % Eos % (Auto) 1.0 L (2-4) % Baso % (Auto) 0.5 (0-2) % Neut # (Auto) 28803 H (1635-8639) /uL Lymph # (Auto) 1300 (2914-4649) /uL [place] # (Auto) 1100 H (0-900) /uL Eos # (Auto) 100 (0-450) /uL Baso # (Auto) 100 (0-100) /uL Sodium 138 (137-145) mmol/L Potassium 4.6 (3.4-5.1) mmol/L Chloride 106 (98-107) mmol/L Carbon Dioxide 29 (22-32) mmol/L BUN 74 H (7-17) mg/dL Creatinine 1.38 H (0.52-1.04) mg/dL Estimated GFR 38.6 L (>60) mL/min BUN/Creatinine Ratio 53.6 H (6-22) Glucose 123 H (80-110) mg/dL Calcium 8.4 (8.4-10.2) mg/dL Total Bilirubin 0.6 (0.2-1.3) mg/dL AST 32 (14-36) IU/L ALT 30 (<35) IU/L Alkaline Phosphatase 79 (38-126) U/L Total Protein 6.3 (6.3-8.2) g/dL Albumin 3.2 L (3.5-5.0) g/dL Globulin 3.1 (1.7-4.1) g/dL Albumin/Globulin Ratio 1.0 (1.0-2.8) Lipase 103 (23-300) U/L Procalcitonin 0.16 (<0.5) ng/mL COVID-19 PCR (Negative) Blood Type Antibody Screen Crossmatch 04/07/20 04/07/20 Range/Units 01:20 02:20 WBC (4.5-11.0) X10^3/uL RBC (4.0-5.2) X10^6/uL Hgb (12.0-16.0) g/dL Hct (36-46) % MCV (80-100) fL MCH (26-34) PG MCHC (30-36) % RDW (11.6-14.8) % Plt Count (150-400) X10^3/uL Neut % (Auto) (50-75) % Lymph % (Auto) (25-40) % [place] % (Auto) (3-14) % Eos % (Auto) (2-4) % Baso % (Auto) (0-2) % Neut # (Auto) (6783-0826) /uL Lymph # (Auto) (2428-1579) /uL [place] # (Auto) (0-900) /uL Eos # (Auto) (0-450) /uL Baso # (Auto) (0-100) /uL Sodium (137-145) mmol/L Potassium (3.4-5.1) mmol/L Chloride (98-107) mmol/L Carbon Dioxide (22-32) mmol/L BUN (7-17) mg/dL Creatinine (0.52-1.04) mg/dL Estimated GFR (>60) mL/min BUN/Creatinine Ratio (6-22) Glucose (80-110) mg/dL Calcium (8.4-10.2) mg/dL Total Bilirubin (0.2-1.3) mg/dL AST (14-36) IU/L ALT (<35) IU/L Alkaline Phosphatase (38-126) U/L Total Protein (6.3-8.2) g/dL Albumin (3.5-5.0) g/dL Globulin (1.7-4.1) g/dL Albumin/Globulin Ratio (1.0-2.8) Lipase (23-300) U/L Procalcitonin (<0.5) ng/mL COVID-19 PCR Negative (Negative) Blood Type O Negative Antibody Screen Negative Crossmatch See Detail Urine Dip Bedside Urine Glucose Negative Bedside Urine Bilirubin - Negative Bedside Urine Ketone - Negative Urine Specific Duncan 1.015 Bedside Urine Occult Blood +/- Bedside Urine pH 6.0 Bedside Urine Protein - Negative Bedside Urine Urobilinogen - Negative Bedside Urine Nitrite - Negative Bedside Urine Leukocytes - Negative Esterase Point of care testing: Urine Dip Bedside Urine Glucose Negative Bedside Urine Bilirubin - Negative Bedside Urine Ketone - Negative Urine Specific Duncan 1.015 Bedside Urine Occult Blood +/- Bedside Urine pH 6.0 Bedside Urine Protein - Negative Bedside Urine Urobilinogen - Negative Bedside Urine Nitrite - Negative Bedside Urine Leukocytes - Negative Esterase Imaging Data US - SUPERVISOR DELIVERY DEPARTMENT: Radiologist's Impression: Moderate amount of fluid with debris/tissue in the endometrial, no evidence of hypervascularity, endometrial neoplasm cannot be ruled out the parents could be secondary to resolving hemorrhage. Unremarkable over his ECG Data Attestation: I personally reviewed and interpreted this ECG as follows: Prior ECG tracings: not available for review Interpretation: Sinus rhythm Ventricular rate is 79 Normal axis Normal QRS Normal QTC Nonspecific ST T wave changes MDM Narrative Medical decision making narrative: Patient is alert and oriented. Somewhat pale upon arrival. Systolic blood pressure upon arrival in the 90s however she is not tachycardic. She is on metoprolol secondary to the hypertension that is caused by her Tacrolimus. Patient has had no further vomiting since arrival here in the ER and she states the Zofran that she received by EMS seems to have helped that. She does have lower abdominal tenderness and only a very small amount of vaginal bleeding which I suspect is expected after her procedure couple days ago. Did discuss the case with Dr. Armstrong with bit sharpener operator who states that she has low concerned that there was any perforation or excessive blood loss. Review the patient's labs shows that her last H&H year was 2015. I was able to obtain some records from [facility] however these were from more than 1 year ago. I then talked to the [facility] where she receives her care secondary to her liver transplant and a most recent hemoglobin and hematocrit from February 27 was 10.5/30. Patient states she has had reflux in the past. She was started on Protonix. I did discuss the case with liver specialist at the [facility] who stated that the patient has no reported history of varices. Given her drop in hemoglobin and hematocrit in her syncopal episodes in her hypertension Advil the patient needs transfused with blood. Patient has had a transfusion in the past and understands the risks and benefits. Patient was given leuko reduced blood. I discussed the case with Dr. Vera with General surgery to agree to see the patient upon admission. And then discuss the case with Dr. Hawthorne with Medicine who will admit the patient to the ICU given her blood pressures. Pelvic ultrasound ordered to evaluate potential in cause of her bleeding. Critical Care Time Critical Care Time Critical Care Time: Yes Total Critical Care Time: 50 Attestation: The high probability of a clinically significant, sudden or life threatening deterioration of the circulatory, GI system(s) required my full and direct attention, intervention and personal management. The aggregate critical care time was by 50 minutes. This time is in addition to time spent performing reported procedures but includes the following: [x] Data Review and interpretation [x] Patient assessment and monitoring of vital signs [x] Documentation [x] Medication orders and management Discharge Plan Departure Patient Disposition: Admitted As Inpatient Clinical Impression: Acute GI bleeding, Syncope Anemia Qualifiers: Anemia type: unspecified type Qualified Code(s): D64.9 - Anemia, unspecified Hypotension Qualifiers: Hypotension type: unspecified hypotension type Qualified Code(s): I95.9 - Hypotension, unspecified Referrals: Sharon Darnell DO [Primary Care Provider] - Admit Date/Time: 04/07/20 03:36 Admit Provider: Jimenez Hawthorne
[2020-04-07] MEDS: SODIUM CHLORIDE 0.9% 1,000 ML 1000 ML IV ×2 (01:00→05:32)
[2020-04-07 01:01] LABS: Add Manual Diff / Slide Review NO; Basophils Absolute Auto 100 /uL (0-100); Basophils Percent Auto 0.5 % (0-2); Eosinophils Absolute Auto 100 /uL (0-450); Hemoglobin 7.4 g/dL (12.0-16.0); Lymphocytes Absolute Auto 1300 /uL (1100-4500); Lymphocytes Percent Auto 10.7 % (25-40); Mean Corpuscular Hemoglobin 29.9 PG (26-34); Mean Corpuscular Volume 90.7 fL (80-100); Monocytes Absolute Auto 1100 /uL (0-900); Monocytes Percent Auto 8.5 % (3-14); Neutrophils Absolute Auto 10000 /uL (1500-7000); Neutrophils Percent Auto 79.3 % (50-75); Platelet Count 159 X10^3/uL (150-400); Red Blood Cell Count 2.48 X10^6/uL (4.0-5.2); Red Cell Distribution Width 13.9 % (11.6-14.8); White Blood Cell Count 12.5 X10^3/uL (4.5-11.0)
[2020-04-07 01:05] LABS: Hematocrit 22.5 % (36-46)
--- NOTE | 2020-04-07 01:05 | PC.NURSE ---
Patient reports one round of coffee ground bloody emesis this afternoon approximately 1530pm.
[2020-04-07 01:12] LABS: Alanine Aminotransferase 30 IU/L (<35); Albumin 3.2 g/dL (3.5-5.0); Alkaline Phosphatase 79 U/L (38-126); Aspartate Aminotransferase 32 IU/L (14-36); BUN Creatinine Ratio 53.6 (6-22); Bilirubin Total 0.6 mg/dL (0.2-1.3); Blood Urea Nitrogen 74 mg/dL (7-17); Calcium 8.4 mg/dL (8.4-10.2); Carbon Dioxide 29 mmol/L (22-32); Chloride 106 mmol/L (98-107); Estimated Glomerular Filt Rate 38.6 mL/min (>60); Globulin 3.1 g/dL (1.7-4.1); Glucose 123 mg/dL (80-110); HEMOLYSIS < 15 (0-50); Lipase 103 U/L (23-300); Potassium 4.6 mmol/L (3.4-5.1); Sodium 138 mmol/L (137-145); Total Protein 6.3 g/dL (6.3-8.2)
[2020-04-07] MEDS: PANTOPRAZOLE 80 MG in SODIUM CHLORIDE 0.9% 100 ML 10 ML IV ×2 (01:50→16:23)
[2020-04-07] MEDS: PANTOPRAZOLE 40 MG VIAL 80 MG IV (01:50)
--- NOTE | 2020-04-07 02:36 | DI.US.S_ITS ---
PROCEDURE: US PELVIC COMPLETE INDICATIONS: Hx of D/C now with anemia TECHNIQUE: Real-time scanning was performed of the pelvic organs, with image documentation. Additional endovaginal scanning was necessary due to incomplete visualization of the adnexal and endometrial structures by transabdominal scanning. COMPARISON: [facility], CT, CT ABDOMEN PELVIS WO CON, 04/07/2020, 5:50. [facility], US, US PELVIC COMPLETE, 01/30/2020, 11:42. FINDINGS: Transabdominal scanning: Limited scanning through the kidneys shows no hydronephrosis. No pathologic free abdominal or pelvic fluid. The spleen measures at the upper limits of normal at 13 cm. Endovaginal scanning: Uterus: Uterus is normal in size at 6.3 x 3.5 x 4.9 cm. The endometrium measures approximately 5.5 mm in combined thickness. Along the endometrial stripe, there is a nonvascular complex focus that measures 1.8 x 0.5 x 1.1 cm. Ovaries: The right ovary measures 1.9 x 1.4 x 0.9 cm. The left ovary measures 1.7 x 0.7 x 0.8 cm. No significant ovarian abnormality is seen. No adnexal masses can be seen on either side. IMPRESSION: Nonvascular debris can be seen along the endometrial stripe, which is most likely related to hematoma in this patient with a history of recent D&C procedure. Please correlate with D&C histology results. Note: No significant discrepancy from the preliminary report. Dictated by: Chris Grissom M.D. on 04/07/2020 at 8:41 Approved by: Chris Grissom M.D. on 04/07/2020 at 8:44
[2020-04-07 02:40] LABS: COVID19 -Nasal RAPID Negative (Negative)
[2020-04-07 03:47] LABS: Procalcitonin 0.16 ng/mL (<0.5)
[2020-04-07 03:56] LABS: Lactate (Lactic Acid) 1.9 mmol/L (0.7-2.1)
--- NOTE | 2020-04-07 04:05 | P.HP_ITS ---
History of Present Illness History of Present Illness Date Patient Seen: 04/07/20 Time Patient Seen: 04:05 Chief complaint: lower abdominal pain Narrative: This is a 65-year-old female who is now 2 days postop from a dilatation and curettage procedure and has been nauseated since then. At 3:30 p.m. yesterday she had sudden onset of hematemesis, with red chunky maroon-colored emesis, abdominal pain and lightheadedness. She usually experiences nausea after any procedure requiring anesthesia so hadn't thought that it was unusual. She has been treating her nausea with Phenergan suppositories. There has been no observed rectal bleeding or black stools. She has a history of primary biliary cholangitis with subsequent liver transplant in 2004 so follows up regularly at the transplant GI service in [place] at [facility]. She has no history of prior GI bleeding. She does have a history of mild pancytopenia with her last hemoglobin of 10.5 done at [facility] on February 27. Her platelets then were 70. Her hemoglobin today is 7.4 with platelets of 159. She has just had a vaginal ultrasound without any apparent red flags reported by the automotive paint technician, and the reading is pending. She has no history of GI bleeding and does not take any anti-inflammatories. Her only medications are Tacrolimus, Phenergan, metoprolol and occasional Tylenol. The pathology report from her D&C is benign with just atrophic endometrium present. The bleeding that prompted the D&C occurred in early January. She has had spotting since then. She went through menopause 10 years ago. She is receiving a blood transfusion, IV Protonix and we are anticipating EGD in a few hours. General surgery has been consulted On presentation to the emergency department her temperature was 102? temporal but only 99 oral. Her COVID test is negative. She has no other urinary or infectious symptoms. Her white blood count is 12.5 but her procalcitonin is only 0.16. Her lactic acid is pending. She mentions a persistent left ankle sprain but her x-ray from February actually shows a distal fibula fracture. There is no swelling or significant tenderness at that point today. 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) Left fibular fracture (Acute 02/13/20) Post-menopausal bleeding (Acute) Primary biliary cholangitis (Acute) Surgical History History of third molar tooth extraction Liver transplant recipient (Chronic) Status post appendectomy Status post cholecystectomy Status post D&C (Acute) Status post tonsillectomy and adenoidectomy Family & Social History Family History (Updated 04/07/20 @ 04:17 by Jimenez Hawthorne MD) Mother Dementia Father Alzheimer disease Social History: household members spouse Safety & Behavioral: Feels Safe in Current Yes Environment Been Physically Hurt or No Threatened By a Person Tobacco & Substance use: Smoking Status Never smoker alcohol intake frequency holiday/special occasion Substance Use Type does not use Comment: Her primary care physician is Dr. Darnell. Her nut sheller machine operator is Dr. Armstrong Her backup decision maker is her Jonny Garcia She is retired from [employer] Loss Prevention Meds Home Medications and Allergies Home Medications Medication Instructions Recorded Confirmed Type Diphenhydramine Hydrochloride 25 mg PO Q DAY #0 05/12/12 04/02/20 History (BENADRYL) metoprolol tartrate 50 mg PO BID #0 05/12/12 04/05/20 History tacrolimus 0.5 mg PO BID #0 05/12/12 04/05/20 History multivitamin 1 tab PO DAILY 03/19/18 04/02/20 History estradiol 10 mcg vaginal tablet 10 mcg VAGINAL 3XW #36 tab 10/03/19 04/05/20 Rx ondansetron HCl [Zofran] 4 mg PO Q6H #7 tab 04/05/20 Rx promethazine 25 mg [place] Q4-6H PRN #1 each 04/05/20 Rx Allergies Allergy/AdvReac Type Severity Reaction Status Date / Time fentanyl Allergy Severe nausea and Verified 04/05/20 08:54 vomiting Sulfa (Sulfonamide Allergy Unknown Nausea Verified 04/05/20 08:52 Antibiotics) codeine AdvReac Intermediate Nausea Verified 04/05/20 08:52 Review of Systems Review of Systems Narrative: Positive for vomiting, abdominal pain, vaginal bleeding, hematemesis Negative for fevers, chills, sweats, coughing, dysuria, rashes, joint pain, seizures, headaches, new allergies, difficulty talking, difficulty walking, sore throat, chest pain. ROS: Yes All systems reviewed with the patient and are negative except as otherwise documented Exam Vital Signs (past 8 hours): - 04/07/20 00:53 04/07/20 01:08 04/07/20 01:25 Temperature 98.8 F Pulse Rate 84 81 93 H Respiratory Rate 16 18 18 Blood Pressure 93/62 90/55 L 94/52 L Pulse Oximetry 100 100 04/07/20 01:30 04/07/20 02:00 04/07/20 02:30 Temperature Pulse Rate 80 86 85 Respiratory Rate 15 18 13 Blood Pressure 101/55 L 106/58 L 96/56 L Pulse Oximetry 04/07/20 03:02 04/07/20 03:20 04/07/20 03:30 Temperature 99 F 99 F Pulse Rate 99 H 90 88 Respiratory Rate 15 20 19 Blood Pressure 95/55 L 134/60 100/59 L Pulse Oximetry 98 100 04/07/20 03:45 Temperature Pulse Rate 87 Respiratory Rate 23 Blood Pressure 97/58 L Pulse Oximetry 100 Oxygen Delivery Method Room Air Narrative Exam Narrative: She is alert and oriented x3, in no apparent distress. Pupils are equally round reactive to light and accommodation. Extraocular muscles are intact. Sclerae are pale and nonicteric. Throat looks normal. No lymph nodes are felt head, neck, supraclavicular area. There is no thyromegaly. JVD is less than 6 cm. No carotid bruits are heard. Heart is regular rate and rhythm without murmur Lungs are clear to auscultation bilaterally Abdomen is soft, bowel sounds positive, no organomegaly, mild left lower quadrant tenderness. Extremities have no ankle edema. There is no left ankle tenderness or swelling over the distal fibula. She is guarding against movement of the left ankle. Skin has no rash or jaundice Neurological exam. Cranial nerves 2-12 tested intact. Motor is 4/5 throughout. There is no tremor. Babinski's are equivocal bilaterally. There is no lateralizing deficit. Objective Labs Result Diagrams: 04/07/20 00:53 04/07/20 00:53 Labs: Laboratory Results - last 24 hr 04/07/20 04/07/20 04/07/20 00:53 00:53 00:53 WBC 12.5 H RBC 2.48 L Hgb 7.4 L Hct 22.5 L MCV 90.7 MCH 29.9 MCHC 33.0 RDW 13.9 Plt Count 159 Neut % (Auto) 79.3 H Lymph % (Auto) 10.7 L [place] % (Auto) 8.5 Eos % (Auto) 1.0 L Baso % (Auto) 0.5 Neut # (Auto) 89616 H Lymph # (Auto) 1300 [place] # (Auto) 1100 H Eos # (Auto) 100 Baso # (Auto) 100 Sodium 138 Potassium 4.6 Chloride 106 Carbon Dioxide 29 BUN 74 H Creatinine 1.38 H Estimated GFR 38.6 L BUN/Creatinine Ratio 53.6 H Glucose 123 H Lactate Calcium 8.4 Total Bilirubin 0.6 AST 32 ALT 30 Alkaline Phosphatase 79 Total Protein 6.3 Albumin 3.2 L Globulin 3.1 Albumin/Globulin Ratio 1.0 Lipase 103 Procalcitonin 0.16 COVID-19 PCR Blood Type Antibody Screen Crossmatch 04/07/20 04/07/20 04/07/20 01:20 02:20 03:40 WBC RBC Hgb Hct MCV MCH MCHC RDW Plt Count Neut % (Auto) Lymph % (Auto) [place] % (Auto) Eos % (Auto) Baso % (Auto) Neut # (Auto) Lymph # (Auto) [place] # (Auto) Eos # (Auto) Baso # (Auto) Sodium Potassium Chloride Carbon Dioxide BUN Creatinine Estimated GFR BUN/Creatinine Ratio Glucose Lactate 1.9 Calcium Total Bilirubin AST ALT Alkaline Phosphatase Total Protein Albumin Globulin Albumin/Globulin Ratio Lipase Procalcitonin COVID-19 PCR Negative Blood Type O Negative Antibody Screen Negative Crossmatch See Detail Assessment & Plan Assessment & Plan narrative: Upper GI bleeding, present on admission. Active -hemoglobin 7.4, down from baseline of 10.5. -No anti-inflammatory, Aspirin or anticoagulant use reported. -Relationship to postoperative nausea suggests possible Yamilet-Parish tear. -EGD for clarification of gastritis/gastric ulcer/varices/esophageal tear pending in a few hours later this morning. Dr. Vera has been consulted and is aware. -receiving 2 units blood transfusion and transferring into the intensive care unit from the emergency department now -follow hemoglobin and hematocrits every 6 hours. -continue IV Protonix and consider use of octreotide. Postoperative nausea, present on admission. Active -continue ondansetron, Phenergan etc. -pending EGD for clarification Postoperative day 2. Dilatation and curettage, present on admission. Active -hemoglobin down from baseline of 10.5 to 7.4. Ultrasound done to rule out intra abdominal blood loss/fluid collection. -white blood count of 12.5 with initial temporal temperature of 102? and normal procalcitonin. Immediately repeated oral temperature of 99? was found. -vaginal ultrasound just done in the emergency department with reading pending. No red flags noted or reported by technologist. -benign D&C pathology report with atrophic endometrium. Followed by Dr. Armstrong. -Check UA and hold off on antibiotics until a clear indication is present. Covid negative. Liver transplant, status post primary biliary cholangitis, present on admission. Chronic -liver enzymes normal. Continue tacrolimus. -phone consult with Transplant GI done from emergency department with no other additional recommendations. Hypertension, present on admission. Chronic -holding metoprolol until GI bleeding has stabilized. Acute kidney injury, present on admission. Active -BUN of 74, creatinine 1.38 and GFR 38 are noted this morning. -this is assumed to be an acute reaction to the vomiting, nausea, GI bleeding. -baseline renal function numbers from 2016 were normal. We do not have any other more recent reports of CKD. -follow BMP and hydrate with IV normal saline. Distal left fibular fracture, present on admission. Chronic -she describes this as occurring 2 months ago. The x-ray from our emergency department was done in February. -she describes this as a sprain but the x-ray diagnosis of fracture would explain the duration of symptoms better. -no observed indication for splinting or nonweightbearing today. COVID-19 COVID-19 status: Negative Result date/Date tested (Pos, Neg/Pending): 04/07/20
[2020-04-07] MEDS: SODIUM CHLORIDE 0.9% 1,000 ML 100 ML IV ×3 (05:06→17:54)
--- NOTE | 2020-04-07 05:24 | DI.CT.S_ITS ---
PROCEDURE: CT ABDOMEN PELVIS WO CON INDICATIONS: abdominal pain, possible hemorrhage TECHNIQUE: Noncontrast 5 mm thick sections acquired from the diaphragms to the symphysis. 5 mm coronal and sagittal reformats were then performed. For radiation dose reduction, the following was used: automated exposure control, adjustment of mA and/or kV according to patient size. COMPARISON: [facility], PELVIC COMPLETE, 01/30/2020, 11:42. [facility], PELVIC COMPLETE, 04/07/2020, 3:07. FINDINGS: Image quality: Excellent. ABDOMEN: Lung bases: Lung bases are clear. Heart size is normal. A small hiatal hernia is incidentally noted. Solid organs: Liver is normal in size. Gallbladder has been removed. Pancreas is normal in contours. Inflammatory changes are seen surrounding the pancreas. Spleen is enlarged, measuring 15.3 cm craniocaudal No adrenal nodules. Kidneys are normal in size, without hydronephrosis or nephrolithiasis. Peritoneum and bowel: Upper abdominal clips are seen. Generalized thickening of the gastric wall is seen. The gastric wall appears edematous. There is also diffuse thickening of the proximal small bowel. The ascending colon wall is also thickened. No significant colonic wall thickening is seen elsewhere. There is a mild amount of fluid seen along the leaves of the mesentery as well as along the right pericolic gutter. No free air is seen. Nodes and vessels: No retroperitoneal or mesenteric adenopathy by size criteria. Aorta and inferior vena cava are normal in caliber. Miscellaneous: No ventral hernias. PELVIS: Genitourinary: Bladder wall thickness is normal. Gas in debris can be seen along the endometrial stripe. No adnexal masses are seen. Miscellaneous: No inguinal hernias or adenopathy. Bones: No suspicious bony lesions. No vertebral body compression fractures. IMPRESSION: No findings of acute hemorrhage are seen. Inflammatory changes are seen surrounding the pancreas, which is suspicious for pancreatitis. Please correlate with known patient history and laboratory values. There is gastric wall thickening and thickening of the hauser of proximal small bowel. This may be secondary to the presumed pancreatitis or may be related to gastritis/enteritis. Proximal colonic wall thickening is seen, which may be related to colitis or also secondary to regional inflammation. A mild amount of free fluid is seen along the leaves of the mesentery as well as along the right pericolic gutter. Gas and debris can be seen along the endometrial stripe, which is consistent with the given history of recent D&C procedure. Incidental note is made of: Hiatal hernia Cholecystectomy Splenomegaly Note: No significant discrepancy from the preliminary report. Dictated by: Chris Grissom M.D. on 04/07/2020 at 7:20 Approved by: Chris Grissom M.D. on 04/07/2020 at 7:27
[2020-04-07] MEDS: ACETAMINOPHEN 325 MG TABLET 650 MG PO (05:44)
[2020-04-07 05:50] LABS: Hematocrit 23.3 % (36-46); Hemoglobin 7.9 g/dL (12.0-16.0)
--- NOTE | 2020-04-07 06:20 | PC.NURSE ---
Addendum entered by Eunice Trujillo R.N. 04/07/20 06:33: Notified Dr. Hawthorne at [address] results and current VS, recent hemoglobin/hematocrit. Orders received for STAT lipase. Original Note: Admission note: Patient received from ED at 0415. 1 unit of PRBC infusing, IV fluids started, and 8mg/hr of Protonix started. Patient AOx4 on RA. Vitals initially stable with BP in 90's. When this RN was doing admission assessment, patient complained of 7/10 abdominal pain, cramping and needing to have a BM. Patient had moderate sized, black, soft/formed BM with no relief of abdominal pain. BP afterwards 89/57. HR in 80's -SR. Dr. Hawthorne called and notified of BM, pain, and hypotension. Patient at that time also developing low grade fever of 99.6. Orders received for STAT CT abdomen/pelvis, 1L NS, STAT H/H, and 650 mg PO Tylenol x1. [address] with assistance of RN and 2 CNAs, on tele with IV bolus and blood infusing. 0615 patient returned to room. Patient resting in bed with eyes closed at this time. RA, VSS. Call light in reach, patient able to make needs known. Will continue to monitor closely.
[2020-04-07 06:40] LABS: Lipase 73 U/L (23-300)
--- NOTE | 2020-04-07 07:44 | PM.CN ---
History of Present Illness Consult details Date Patient Seen: 04/07/20 Time Patient Seen: 07:44 Chief complaint: lower abdominal pain Reason for consult: hematemesis Requesting provider: Rigoberto Carrillo Narrative: This is a 65 yo woman who is two days out from a D and C for postmenopausal bleeding by Dr. Armstrong. She has been nauseated since the procedure and vomited dark blood with clots in it yesterday afternoon. 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 Her last hemoglobin February 27 was 10.5. At that time her platelets were 70, but are 159 today. Hemoglobin in the ER was 7.4, and has come up to 7.9 with 1 unit of blood. She had an upper endoscopy about 4 years ago at [facility] which she said she was found to have ?red aguayo? and has been on Prilosec daily since then. She has not been having any dark or black stools or any rectal bleeding, until last night in the hospital she did pass a black stool after coming in. During the night she became hypotensive but responded well to a fluid bolus and blood transfusion. She is getting her 2nd unit of blood right now, and says she has not vomited since coming in the hospital. She had a pelvic ultrasound which was consistent with the recent D&C, but no significant source of hemorrhage was identified. She had a CT scan during the night after becoming hypotensive, which also revealed no significant source of hemorrhage. On the CT scan she does have splenomegaly, and had some evidence of thickening of the right colon, some right pericolonic fluid and some evidence of inflammation around the stomach and pancreas. She complains of some pain in the left lower abdomen, which has been there since the D&C procedure. ROS: Reports weakness, fatigue, left abdominal pain, vaginal spotting, ankle pain from recent sprain, Thirteen system review is otherwise negative other than as mentioned below and in HPI. PE: GENERAL: Fatigued, but alert and oriented. In no significant distress. Conversant, comfortable. Appears stated age. Answers questions promptly and appropriately. Vital signs noted. HENT: Normocephalic, atraumatic. Hearing intact. EYES: Conjunctiva pink, sclera white, no periorbital swelling. CARDIOVASCULAR: Regular rate. No pedal edema. RESPIRATORY: Non-tachypneic, breathing comfortably on room air. GASTROINTESTINAL: Abdomen soft and non-distended; mildly tender to palpation in the left lower quadrant and left mid abdomen. No epigastric tenderness. Well-healed chevron incisional scar. GENITALURINARY: No flank tenderness. MUSCULOSKELETAL: Equal tone and mass bilaterally. SKIN: Warm, dry, soft, appropriate color for ethnicity. No other lesions, rashes, or wounds. NEURO: Alert and Oriented X 3. No gross sensory deficits, or cognitive issues. PSYCH: Appropriate affect and mood. Meds Home Medications and Allergies Home Medications Medication Instructions Recorded Confirmed Type Diphenhydramine Hydrochloride 25 mg PO Q DAY PRN #0 05/12/12 04/07/20 History (BENADRYL) metoprolol tartrate 50 mg PO BID #0 05/12/12 04/07/20 History tacrolimus 0.5 mg PO BID #0 05/12/12 04/07/20 History multivitamin 1 tab PO DAILY 03/19/18 04/07/20 History estradiol 10 mcg vaginal tablet 10 mcg VAGINAL 3XW #36 tab 10/03/19 04/07/20 Rx ondansetron HCl [Zofran] 4 mg PO Q6H #7 tab 04/05/20 04/07/20 Rx promethazine 25 mg [place] Q4-6H PRN #1 each 04/05/20 04/07/20 Rx Allergies Allergy/AdvReac Type Severity Reaction Status Date / Time fentanyl Allergy Severe nausea and Verified 04/05/20 08:54 vomiting Sulfa (Sulfonamide Allergy Unknown Nausea Verified 04/05/20 08:52 Antibiotics) codeine AdvReac Intermediate Nausea Verified 04/05/20 08:52 Exam Vital Signs (past 8 hours): - 04/07/20 00:53 04/07/20 01:08 04/07/20 01:25 Temperature 98.8 F Pulse Rate 84 81 93 H Respiratory Rate 16 18 18 Blood Pressure 93/62 90/55 L 94/52 L Pulse Oximetry 100 100 04/07/20 01:30 04/07/20 02:00 04/07/20 02:30 Temperature Pulse Rate 80 86 85 Respiratory Rate 15 18 13 Blood Pressure 101/55 L 106/58 L 96/56 L Pulse Oximetry 04/07/20 03:02 04/07/20 03:20 04/07/20 03:30 Temperature 99 F 99 F Pulse Rate 99 H 90 88 Respiratory Rate 15 20 19 Blood Pressure 95/55 L 134/60 100/59 L Pulse Oximetry 98 100 04/07/20 03:45 04/07/20 04:00 04/07/20 04:30 Temperature Pulse Rate 87 90 87 Respiratory Rate 23 22 20 Blood Pressure 97/58 L Pulse Oximetry 100 100 100 04/07/20 05:00 04/07/20 05:03 04/07/20 05:05 Temperature 99.6 F Pulse Rate 87 87 Respiratory Rate 16 18 Blood Pressure 90/53 L 89/57 L Pulse Oximetry 98 98 04/07/20 05:37 04/07/20 05:44 04/07/20 05:52 Temperature 99.6 F 99.6 F 99.2 F Pulse Rate 89 85 Respiratory Rate 18 19 Blood Pressure 89/57 L 108/59 L Pulse Oximetry 04/07/20 05:53 04/07/20 06:00 Temperature 99.2 F 99.2 F Pulse Rate 95 H 82 Respiratory Rate 22 22 Blood Pressure 109/61 109/61 Pulse Oximetry 100 Oxygen Delivery Method Room Air Oxygen Flow Rate [address] scan - abdomen: My impression: Stomach looks like it is full of blood clots. Radiologist's impression: No significant source of hemorrhage. Thickening of the right colon, splenomegaly, peripancreatic and trace perigastric fluid stranding. Possible gastritis, possible enteritis, possible pancreatitis, possible colitis. Labs Result Diagrams: 04/07/20 05:41 04/07/20 00:53 Labs: Laboratory Results - last 24 hr 04/07/20 04/07/20 04/07/20 00:53 00:53 00:53 WBC 12.5 H RBC 2.48 L Hgb 7.4 L Hct 22.5 L MCV 90.7 MCH 29.9 MCHC 33.0 RDW 13.9 Plt Count 159 Neut % (Auto) 79.3 H Lymph % (Auto) 10.7 L [place] % (Auto) 8.5 Eos % (Auto) 1.0 L Baso % (Auto) 0.5 Neut # (Auto) 97693 H Lymph # (Auto) 1300 [place] # (Auto) 1100 H Eos # (Auto) 100 Baso # (Auto) 100 Sodium 138 Potassium 4.6 Chloride 106 Carbon Dioxide 29 BUN 74 H Creatinine 1.38 H Estimated GFR 38.6 L BUN/Creatinine Ratio 53.6 H Glucose 123 H Lactate Calcium 8.4 Total Bilirubin 0.6 AST 32 ALT 30 Alkaline Phosphatase 79 Total Protein 6.3 Albumin 3.2 L Globulin 3.1 Albumin/Globulin Ratio 1.0 Lipase 103 Procalcitonin 0.16 Nasal Screen MRSA (PCR) COVID-19 PCR Blood Type Antibody Screen Crossmatch 04/07/20 04/07/20 04/07/20 01:20 02:20 03:40 WBC RBC Hgb Hct MCV MCH MCHC RDW Plt Count Neut % (Auto) Lymph % (Auto) [place] % (Auto) Eos % (Auto) Baso % (Auto) Neut # (Auto) Lymph # (Auto) [place] # (Auto) Eos # (Auto) Baso # (Auto) Sodium Potassium Chloride Carbon Dioxide BUN Creatinine Estimated GFR BUN/Creatinine Ratio Glucose Lactate 1.9 Calcium Total Bilirubin AST ALT Alkaline Phosphatase Total Protein Albumin Globulin Albumin/Globulin Ratio Lipase Procalcitonin Nasal Screen MRSA (PCR) COVID-19 PCR Negative Blood Type O Negative Antibody Screen Negative Crossmatch See Detail 04/07/20 04/07/20 04/07/20 04:10 05:41 05:41 WBC RBC Hgb 7.9 L Hct 23.3 L MCV MCH MCHC RDW Plt Count Neut % (Auto) Lymph % (Auto) [place] % (Auto) Eos % (Auto) Baso % (Auto) Neut # (Auto) Lymph # (Auto) [place] # (Auto) Eos # (Auto) Baso # (Auto) Sodium Potassium Chloride Carbon Dioxide BUN Creatinine Estimated GFR BUN/Creatinine Ratio Glucose Lactate Calcium Total Bilirubin AST ALT Alkaline Phosphatase Total Protein Albumin Globulin Albumin/Globulin Ratio Lipase 73 Procalcitonin Nasal Screen MRSA (PCR) Negative for mrsa COVID-19 PCR Blood Type Antibody Screen Crossmatch Assessment & Plan Assessment and plan (1) Acute GI bleeding: Status: Acute (2) Anemia: Qualifiers: Anemia type: unspecified type Qualified Code(s): D64.9 - Anemia, unspecified Status: Acute (3) Hypotension: Qualifiers: Hypotension type: unspecified hypotension type Qualified Code(s): I95.9 - Hypotension, unspecified Status: Acute (4) Syncope: Status: Acute (5) GERD (gastroesophageal reflux disease): Status: Acute (6) Liver transplant recipient: Status: Chronic (7) Post-menopausal bleeding: Status: Acute Assessment & Plan narrative: This is a 65-year-old woman admitted for acute GI bleed. It appears that most likely is an upper GI bleed secondary to vomiting. She does have a history of GERD, and is on Prilosec. She has a history of significant vomiting after procedural sedation. She is improving with transfusion, but has had some episodes of hypotension overnight. I discussed with the patient the risks and benefits of going ahead with an upper endoscopy. The purpose of the procedure will be to evaluate for source of ongoing bleeding such as Yamilet-Parish tear, peptic ulcer, duodenal ulcer, or neoplasm. Risks and benefits of EGD and possible biopsy were discussed with the patient including risk of bleeding, perforation, need for additional procedures, risks of anesthesia. The patient desires to proceed with the EGD procedure. She did emphasize that she does not tolerate procedural sedation with fentanyl and Versed very well, and has requested her procedure be done with propofol anesthesia. I told her that Dr. Turcios would be coming in later this morning and will likely be the 1 to do her procedure. He will review her case and discuss with her his thoughts, prior to the procedure. Plan: Schedule for EGD this morning, once transfusions are complete, and the patient is hemodynamically stable Would plan on keeping her in the hospital for 24 hours after the procedure given her tendency towards nausea after procedural sedation, in order to avoid a repeat of the same COVID-19 COVID-19 status: Negative Result date/Date tested (Pos, Neg/Pending): 04/07/20 Time Spent With Patient Time with patient: 25 - 35 minutes
[2020-04-07] MEDS: TACROLIMUS 0.5 MG CAPSULE PO ×2 (08:23→19:18)
[2020-04-07 08:41] LABS: Hematocrit 27.8 % (36-46); Hemoglobin 9.4 g/dL (12.0-16.0)
[2020-04-07] MEDS: ONDANSETRON 4 MG/2 ML INJ IV (09:48)
--- NOTE | 2020-04-07 09:54 | PC.NURSE ---
Addendum entered by Kate Cardenas R.N. 04/07/20 12:49: Pt returned from PACU, EGD showed no active bleed, esopgegeal varicies. Transport to pending. UPdate to spouse by Dr Falcon. Original Note: [id number]-Off floor to PACU
[2020-04-07] MEDS: LACTATED RINGERS 1,000 ML 42 ML IV (10:05)
--- NOTE | 2020-04-07 10:07 | SUR.HOLD ---
Patient transferred to stretcher, moderate assist. Transferred to PACU on a monitor.
--- NOTE | 2020-04-07 10:10 | PM.PREOP ---
Pre-operative Note COVID-19 COVID-19 status: Negative Result date/Date tested (Pos, Neg/Pending): 04/07/20 Interval Note History & Physical reviewed/Exam performed by Physician: Yes Changes to H&P: No
[2020-04-07] MEDS: METOCLOPRAMIDE 10 MG/2 ML INJ IV ×2 (10:14→12:55)
[2020-04-07] MEDS: FAMOTIDINE 20 MG/50 ML PIGGYBACK 200 MG IV (10:16)
--- NOTE | 2020-04-07 10:48 | P.OP.ENDO_ITS ---
Operative Date/Time/Diagnoses Date of procedure: 04/07/20 Time of procedure: 10:48 Pre-op diagnosis: Hematemesis and melena. Patient post liver transplant. Post-op diagnosis: same (Esophageal varices. Esophagitis. No obvious site of esophageal bleeding. Stomach and duodenum were unremarkable except for old blood.) Procedure & Clinicians Study performed: EGD Same procedure as scheduled: Yes Indications: Diagnostic potentially therapeutic Surgeon: Alex Turcios Procedure Notes SCOAP/Timeout: Erythematous. Procedure in detail: The patient was placed supine on her stretcher and underwent general endotracheal anesthesia to protect her airway. Endoscope was inserted under direct vision into the esophagus. The proximal esophagus had fine network of small vessels. The mid esophagus and distal esophagus had obvi ous esophageal varices and redness over them. I could not see a an ulcer however. Nor could I see any evidence of recent bleeding. The stomach insufflated well and contain clot. I examined the body and antrum and the incisura and irrigated off the small amount of clotted material in the region. I saw no evidence of inflammation or ulceration. The pyloric channel was patent. I entered the duodenum. There was no evidence of recent bleeding. There was a small amount of coffee ground material. This irrigated off easily. The duodenum was normal to the 3rd part. I could see no site of bleeding or inflammation. The scope was brought back into the stomach and retroflexed. I irrigated and suctioned what I could of the proximal stomach. The lesser curve was well seen and had no evidence of inflammation. The rib patient was repositioned on her side and this removed almost all of the clot from the proximal stomach. I could see it well and looked entirely normal. I did not see any evidence of gastric varices. There was no inflammation or ulceration of the proximal stomach. There was a small area right at the GE junction that I could not clear of clot. The scope was straightened and I irrigated this from above and passed back through. I could not see any evidence of recent bleed though the area was erythematous. There were no ulcerations however. The scope was removed and once again confirmed large varices of the distal and mid esophagus. I saw no evidence of upper esophageal abnormalities or evidence of bleeding from the or 0ro- pharynx. Patient tolerated the procedure well. Scope withdrawal time: Not applicable Sedation minutes: 0 (Patient had general anesthesia to protect her airway from aspiration.) Findings: other findings (Gastric varices with esophageal inflammation but no obvious ulceration.) Specimen(s): none sent Complications: none Post-procedure Recommendations: Continue medication(s) (Beta-blockers) and Other recommendation (Discuss potential to transfer with the patient's transplant team at the [facility].) Follow up: as needed Disposition: PACU
[2020-04-07 10:57] LABS: Appearance Urine UA CLEAR; Bilirubin Urine UA NEGATIVE (NEGATIVE); Color Urine UA YELLOW; Glucose Urine UA NEGATIVE (Negative); Ketones Urine UA NEGATIVE (NEGATIVE); Leukocyte Esterase Urine UA NEGATIVE (NEGATIVE); Nitrite Urine UA NEGATIVE (Negative); Occult Blood Urine UA 3+ (Negative); Protein Urine UA NEGATIVE (Negative); Urobilinogen Urine UA 0.2 E.U./dL (0.2)
[2020-04-07 11:13] LABS: Bacteria Urine Few (2-10); Culture Indicated Urine Cult Not Indicated; RBC Urine 1-5/HPF (0-5/HPF); Squamous Epithelial Cell Urine 0-1 /HPF (0-5/HPF); WBC Urine 1-5/HPF (0-5/HPF); pH Urine UA 5.5 (4.5-8.0)
--- NOTE | 2020-04-07 11:13 | CM.DANOTE ---
Patient is a 65 year old female who was admitted on 04/07/20 today for Lower Abd Pain. Pt has GOFF for insurance and her PCP is Dr. Sharon Darnell. EMR was reviewed. Per MD, pt with a hx of liver transplant at in 2004 and had a recent D&C a couple days ago and ended up with bleeding and clots. Pt admitted for G.I. Bleed. Per Surgeon Consult, recommending blood transfusion and then EGD today to determine source of bleed. SW attempted bedside assessment but pt off the floor for EGD currently. Plan: SW to follow closely for bedside assessment once pt returns to the floor after procedure towards determining any d/c needs. LUDIVINA Mondragon Discharge Planning/Care Management CM Discharge Assessment Start: 04/07/20 11:11 Freq: Status: Active Protocol: Document 04/07/20 11:11 BF (Rec: 04/07/20 11:13 BF [id number]) Discharge Planning Assessment Assigned Athletic Monitor LUDIVINA Monet Advance Directives? Yes Advance Directives on File No History Provided By Patient,Medical Record Has Patient been admitted in last 30 No days? Prior Living Arrangements House Household Members spouse Type of transporation used prior to Drives own vehicle admit Independent with ADL's Yes Is patient alert and oriented? Yes Caregiver for Another No Comment Likely home pending EGD Barriers to Discharge No Discharge Plan Home Transportation Arrangement Spouse can provide transport at d/c. Referrals Initiated None needed Additional Comment Pending EGD results Review Status In Process Please Provide Date Initial DC 04/07/20 Assessment Was Performed Next Review Type Continued Stay Review
--- NOTE | 2020-04-07 11:23 | SUR.PHASEI ---
Abdomen distended, Dr. Turcios notified. Patient taken to radiology for abdominal series on a monitor. Patient reported abdomen painful. Is very solmnolent.
--- NOTE | 2020-04-07 11:45 | SUR.PHASEI ---
Report called to Eri after Dr. Turcios gave the transfer order. Patient transferred to ICU on a electronic device monitor. Transferred to the bed by slider board. Report given to Eri. Distended abdomen softer that before, + flatus.
--- NOTE | 2020-04-07 18:27 | PM.DS.1 ---
History of Present Illness History of Present Illness Date Patient Seen: 04/07/20 Chief complaint: lower abdominal pain Narrative: This is a 65-year-old female who is now 2 days postop from a dilatation and curettage procedure and has been nauseated since then. At 3:30 p.m. yesterday she had sudden onset of hematemesis, with red chunky maroon-colored emesis, abdominal pain and lightheadedness. She usually experiences nausea after any procedure requiring anesthesia so hadn't thought that it was unusual. She has been treating her nausea with Phenergan suppositories. There has been no observed rectal bleeding or black stools. She has a history of primary biliary cholangitis with subsequent liver transplant in 2004 so follows up regularly at the transplant GI service in [place] at [facility]. She has no history of prior GI bleeding. She does have a history of mild pancytopenia with her last hemoglobin of 10.[address] [facility] on February 27. Her platelets then were 70. Her hemoglobin today is 7.4 with platelets of 159. She has just had a vaginal ultrasound without any apparent red flags reported by the administrative support technician, and the reading is pending. She has no history of GI bleeding and does not take any anti-inflammatories. Her only medications are Tacrolimus, Phenergan, metoprolol and occasional Tylenol. The pathology report from her D&C is benign with just atrophic endometrium present. The bleeding that prompted the D&C occurred in early January. She has had spotting since then. She went through menopause 10 years ago. She is receiving a blood transfusion, IV Protonix and we are anticipating EGD in a few hours. General surgery has been consulted On presentation to the emergency department her temperature was 102? temporal but only 99 oral. Her COVID test is negative. She has no other urinary or infectious symptoms. Her white blood count is 12.5 but her procalcitonin is only 0.16. Her lactic acid is pending. She mentions a persistent left ankle sprain but her x-ray from February actually shows a distal fibula fracture. There is no swelling or significant tenderness at that point today. Discharge Providers Provider Date of admission: 04/07/20 03:36 Discharge Date: 04/07/20 Primary care physician: Sharon Darnell DO Consults: 10/31/20 02:53 Consult to General Surgery Stat Comment: Consulting Provider: Gila Vera Reason for consultation: GI bleed Has provider been notified: Yes Discharge provider: Charan Falcon MD Summary Hospital Course Discharge Diagnosis: 1. Acute blood loss anemia 2. Upper GI bleed 3. Esophageal varices possibly cause of bleed 4. Esophagitis 5. Status post liver transplant for primary biliary cholangitis Procedures: EGD: Esophageal varices, esophagitis, gastric varices Abdomen/pelvis CT without contrast: No findings of acute hemorrhage are seen. Inflammatory changes are seen surrounding the pancreas, which is suspicious for pancreatitis. Please correlate with known patient history and laboratory values. There is gastric wall thickening and thickening of the hauser of proximal small bowel. This may be secondary to the presumed pancreatitis or may be related to gastritis/enteritis. Proximal colonic wall thickening is seen, which may be related to colitis or also secondary to regional inflammation. A mild amount of free fluid is seen along the leaves of the mesentery as well as along the right pericolic gutter. Gas and debris can be seen along the endometrial stripe, which is consistent with the given history of recent D&C procedure. Hospital Course: Patient was admitted to our intensive care unit due to acute hematemesis with hemodynamic instability. She had initial drops in her blood pressure to around 90 systolic. After fluid resuscitation and 2 units packed red blood cell transfusion her blood pressures have been in the normal range. She has not had any further hematemesis since a few hours prior to admission early this morning. Surgery was consulted and Dr. Turcios performed upper endoscopy which showed significant esophageal varices without evidence of acute bleed but thought to be likely source of her bleed. In addition she had changes of esophagitis and gastric varices. On most recent vitals BP 128/64, pulse 103, respirations 18, O2 sat 98% room air. Last hemoglobin 9.4 and hematocrit 27.8 status post 2 units PRBC (verses hemoglobin 7.4 and hematocrit of 22.5 on admission). Patient is resting comfortably post EGD and has not had further vomiting. We are working to transfer patient to tertiary hospital due to concern of acute bleed associated with significant esophageal varices where she might need GI intervention not available at [facility]. Patient is established with [facility] liver Transplant Team and [facility] has authorized transfer of patient to [facility] emergency Department as there are currently no open medical beds. She will be transferred via [facility] ambulance. Condition is stable at time of discharge. Time Spent with Patient Time spent: Greater than 30 minutes Exam Vital Signs (past 8 hours): - 04/07/20 10:54 04/07/20 10:56 04/07/20 11:01 Temperature 98.5 F Pulse Rate 99 H 103 H 101 H Respiratory Rate 22 18 19 Blood Pressure 109/67 112/70 112/71 Pulse Oximetry 100 97 97 04/07/20 11:06 04/07/20 11:11 04/07/20 11:17 Temperature Pulse Rate 100 H 103 H 97 H Respiratory Rate 20 22 Blood Pressure 118/77 130/67 107/62 Pulse Oximetry 99 99 100 04/07/20 11:21 04/07/20 11:26 04/07/20 11:32 Temperature Pulse Rate 94 H 91 H 97 H Respiratory Rate 20 16 18 Blood Pressure 117/77 114/70 120/62 Pulse Oximetry 99 100 99 04/07/20 11:45 04/07/20 12:00 04/07/20 12:30 Temperature 99.9 F H 99.9 F H 99.2 F Pulse Rate 88 87 100 H Respiratory Rate 19 18 18 Blood Pressure 117/59 L 99/55 L 116/57 L Pulse Oximetry 100 99 98 04/07/20 13:30 04/07/20 14:48 04/07/20 17:09 Temperature 99.4 F 98.9 F 100.6 F H Pulse Rate 102 H 110 H 105 H Respiratory Rate 16 18 18 Blood Pressure 106/62 107/58 L 108/63 Pulse Oximetry 100 99 98 04/07/20 17:12 Temperature 99.6 F Pulse Rate 103 H Respiratory Rate 18 Blood Pressure 128/64 Pulse Oximetry 98 Oxygen Delivery Method Room Air Oxygen Flow Rate 0 Objective Labs Result Diagrams: 04/07/20 08:30 04/07/20 00:53 Labs: Laboratory Results - last 24 hr 04/07/20 04/07/20 04/07/20 00:53 00:53 00:53 WBC 12.5 H RBC 2.48 L Hgb 7.4 L Hct 22.5 L MCV 90.7 MCH 29.9 MCHC 33.0 RDW 13.9 Plt Count 159 Neut % (Auto) 79.3 H Lymph % (Auto) 10.7 L [place] % (Auto) 8.5 Eos % (Auto) 1.0 L Baso % (Auto) 0.5 Neut # (Auto) 70709 H Lymph # (Auto) 1300 [place] # (Auto) 1100 H Eos # (Auto) 100 Baso # (Auto) 100 Sodium 138 Potassium 4.6 Chloride 106 Carbon Dioxide 29 BUN 74 H Creatinine 1.38 H Estimated GFR 38.6 L BUN/Creatinine Ratio 53.6 H Glucose 123 H Lactate Calcium 8.4 Total Bilirubin 0.6 AST 32 ALT 30 Alkaline Phosphatase 79 Total Protein 6.3 Albumin 3.2 L Globulin 3.1 Albumin/Globulin Ratio 1.0 Lipase 103 Procalcitonin 0.16 Urine Color Urine Appearance Urine pH Ur Specific Richardson Urine Protein Urine Glucose (UA) Urine Ketones Urine Occult Blood Urine Nitrate Urine Bilirubin Urine Urobilinogen Ur Leukocyte Esterase Urine RBC Urine WBC Ur Squamous Epith Cells Urine Bacteria Ur Culture Indicated? Nasal Screen MRSA (PCR) COVID-19 PCR Blood Type Antibody Screen Crossmatch 04/07/20 04/07/20 04/07/20 01:20 02:20 03:40 WBC RBC Hgb Hct MCV MCH MCHC RDW Plt Count Neut % (Auto) Lymph % (Auto) Wy[place] % (Auto) Eos % (Auto) Baso % (Auto) Neut # (Auto) Lymph # (Auto) Wythe # (Auto) Eos # (Auto) Baso # (Auto) Sodium Potassium Chloride Carbon Dioxide BUN Creatinine Estimated GFR BUN/Creatinine Ratio Glucose Lactate 1.9 Calcium Total Bilirubin AST ALT Alkaline Phosphatase Total Protein Albumin Globulin Albumin/Globulin Ratio Lipase Procalcitonin Urine Color Urine Appearance Urine pH Ur Specific Richardson Urine Protein Urine Glucose (UA) Urine Ketones Urine Occult Blood Urine Nitrate Urine Bilirubin Urine Urobilinogen Ur Leukocyte Esterase Urine RBC Urine WBC Ur Squamous Epith Cells Urine Bacteria Ur Culture Indicated? Nasal Screen MRSA (PCR) COVID-19 PCR Negative Blood Type O Negative Antibody Screen Negative Crossmatch See Detail 04/07/20 04/07/20 04/07/20 04:10 05:41 05:41 WBC RBC Hgb 7.9 L Hct 23.3 L MCV MCH MCHC RDW Plt Count Neut % (Auto) Lymph % (Auto) Wy[place] % (Auto) Eos % (Auto) Baso % (Auto) Neut # (Auto) Lymph # (Auto) Wy[place] # (Auto) Eos # (Auto) Baso # (Auto) Sodium Potassium Chloride Carbon Dioxide BUN Creatinine Estimated GFR BUN/Creatinine Ratio Glucose Lactate Calcium Total Bilirubin AST ALT Alkaline Phosphatase Total Protein Albumin Globulin Albumin/Globulin Ratio Lipase 73 Procalcitonin Urine Color Urine Appearance Urine pH Ur Specific Richardson Urine Protein Urine Glucose (UA) Urine Ketones Urine Occult Blood Urine Nitrate Urine Bilirubin Urine Urobilinogen Ur Leukocyte Esterase Urine RBC Urine WBC Ur Squamous Epith Cells Urine Bacteria Ur Culture Indicated? Nasal Screen MRSA (PCR) Negative for mrsa COVID-19 PCR Blood Type Antibody Screen Crossmatch 04/07/20 04/07/20 07:30 08:30 WBC RBC Hgb 9.4 L Hct 27.8 L MCV MCH MCHC RDW Plt Count Neut % (Auto) Lymph % (Auto) [place] % (Auto) Eos % (Auto) Baso % (Auto) Neut # (Auto) Lymph # (Auto) Wy[place] # (Auto) Eos # (Auto) Baso # (Auto) Sodium Potassium Chloride Carbon Dioxide BUN Creatinine Estimated GFR BUN/Creatinine Ratio Glucose Lactate Calcium Total Bilirubin AST ALT Alkaline Phosphatase Total Protein Albumin Globulin Albumin/Globulin Ratio Lipase Procalcitonin Urine Color Yellow Urine Appearance Clear Urine pH 5.5 Ur Specific Richardson 1.010 Urine Protein Negative Urine Glucose (UA) Negative Urine Ketones Negative Urine Occult Blood 3+ H Urine Nitrate Negative Urine Bilirubin Negative Urine Urobilinogen 0.2 Ur Leukocyte Esterase Negative Urine RBC 1-5/hpf Urine WBC 1-5/hpf Ur Squamous Epith Cells 0-1 /hpf Urine Bacteria Few (2-10) H Ur Culture Indicated? Cult not indicated Nasal Screen MRSA (PCR) COVID-19 PCR Blood Type Antibody Screen Crossmatch Discharge Plan [facility] orders & Medications Prescriptions: No Action tacrolimus 1 MG capsule 0.5 mg PO BID Qty: 0 RF: 0 metoprolol tartrate 50 MG tablet 50 mg PO BID Qty: 0 RF: 0 Diphenhydramine Hydrochloride (BENADRYL) 25 mg PO Q DAY PRN (Reason: Allergy Symptoms) Qty: 0 RF: 0 estradiol [Vagifem] 10 mcg tablet 10 mcg Vaginal 3XW Qty: 36 RF: 3 multivitamin Tablet 1 tab PO DAILY RF: 0 ondansetron HCl [Zofran] 4 mg tablet 4 mg PO Q6H Qty: 7 RF: 0 promethazine 25 mg suppository 25 mg CA Q4-6H PRN (Reason: post op nausea) Qty: 1 RF: 0 Follow up/Referrals: Sharon Darnell DO [Primary Care Provider] - Discharge Data Primary Care Provider: Sharon Darnell Quality VTE Deep Vein Thrombosis/Pulmonary Embolism Present on Admission: No
[2020-04-07] MEDS: METOPROLOL IR 50 MG TABLET PO (19:18)
--- NOTE | 2020-04-07 19:26 | PC.NURSE ---
Pt S/P EGC for UGI bleed. No complaint of nausea or vomiting since returning from procedure. She does complain of a vague headache, Tmax 100.9. IV of NS infusing at 100ml/hr, Protonix @ 10ml/hr or 8mg/hr. AAOx4, able to get OOB to [facility] to urinate and have a mod size tarry stool. No complain of dizziness or weakness, Orthostatic BP stable lying and standing - 122/73 and 122/86 respectively. Pt preparing to be transported to for evaluation and treatment.
== END 2020-04-07 20:10 | disposition short-term general hospital (02) | DRG 369 ==
LOC: ED 02:54 → ICU 09:23
PROVIDERS: Specialist; Admitting Provider Family Medicine; Emergency Provider Emergency Medicine; PCP Family Medicine; Referring Provider Emergency Medicine; Visit Provider Family Medicine
PROC: 0DJ08ZZ Inspection of Upper Intestinal Tract, Via Natural or Artificial Opening Endoscopic (ICD-10-PCS; CPT 43235; principal; 2020-04-07 10:00)
DX: I85.01 Esophageal varices with bleeding (principal); D62 Acute posthemorrhagic anemia; N17.9 Acute kidney failure, unspecified; Z94.4 Liver transplant status; K20.91 Esophagitis, unspecified with bleeding; I86.4 Gastric varices; I10 Essential (primary) hypertension; S82.832D Other fracture of upper and lower end of left fibula, subsequent encounter for closed fracture with routine healing; Z98.890 Other specified postprocedural states; Z11.59 Encounter for screening for other viral diseases
CPT/HCPCS: 36415; 36430; 43235; 74022; 74176; 76830; 76856; 80053; 81001; 81003; 83605; 83690; 84145; 85014; 85018; 85025; 86850; 86900; 86901; 87040; 87635; 87797; 93005; 93010; 96361; 96365; 96366; 99252; 99285; 99291; P9016; C9113; J0330; J2250; J2405; J2704; J2765; J7507

== ENCOUNTER → 2020-08-11 09:55 | Outpatient (CLI) | payer OTHER, SELFPAY ==
[2020-04-07 04:24] VITALS: BMI 20.1
[2020-08-11 11:00] LABS: COVID19 -Nasal RAPID Negative (Negative)
== END ==
PROVIDERS: PCP Family Medicine; Visit Provider Nurse Practitioner
DX: Z20.822 Contact with and (suspected) exposure to COVID-19 (principal)
CPT/HCPCS: 87635

== ENCOUNTER → 2020-08-13 15:01 | Outpatient (CLI) | payer OTHER, SELFPAY ==
[2020-04-07 04:24] VITALS: BMI 20.1
--- NOTE | 2020-08-13 15:03 | DI.NM.S_ITS ---
PROCEDURE: NM EXERCISE TREADMILL NON NUC COMPARISON: None. INDICATIONS: Palpitations FINDINGS: The patient exercised for 7 minutes, reaching 7.8METs with SRINIVASAN +13%. Slightly submaximal study as only 81% of maximum predicted heart rate reached. Appropriate BP response to exercise. Resting ECG has very slight upsloping ST depressions in the inferior and anterolateral leads that don't alter much with exercise or during recovery, suggesting a low risk study. No significant ectopy. IMPRESSION: Low risk, normal mildly submaximal (81% of maximum predicted heart rate reached) ECG only stress test. Mildly reduced exercise tolerance (7.8 METs, SRINIVASAN +13%). No diagnostic ECG evidence of ischemia. Submaximal stress test reduces sensitivity of detection of obstructive CAD. Dictated by: Shelley Rosas MD on 08/13/2020 at 17:35 Approved by: Shelley Rosas MD on 08/13/2020 at 17:40
--- NOTE | 2020-08-13 15:52 | PM.TREADMILL ---
Cardiac Stress Test Report Referral & Results Date Patient Seen: 08/13/20 Time Patient Seen: 15:52 Requesting provider: Sherry Ghosh Indication: palpitations Rest ECG: sinus rhythm Procedure Note: Standard Nish protocol, 7:00, 7.8 METS Reduced exercise capacity, SRINIVASAN +13%; submaximal stress test, patient did not achieve target heart rate Normal hemodynamic response to exercise No chest pain or anginal symptoms [address] depression in II, III, aVF, V3-V5, no ectopy Impression: Submaximal exercise stress test Please note: Actual ECG tracings can be found in the PACS system.
== END ==
PROVIDERS: PCP Family Medicine; Referring Provider Internal Medicine Cardiovascular Disease; Visit Provider Internal Medicine Cardiovascular Disease
DX: R00.2 Palpitations (principal); R07.89 Other chest pain
CPT/HCPCS: 93016; 93017

== ENCOUNTER 2022-05-27 17:55 | Emergency (ER) | payer MEDICARE, SELFPAY ==
[2020-04-07 04:24] VITALS: BMI 20.1
[2022-05-27 18:25] VITALS: BP 119/68; PULSE 71; RESP 20; TEMP 36.7; O2SAT 98; BMI 19.3
--- NOTE | 2022-05-27 20:03 | ED.GENADULT ---
HPI - General Adult General Chief complaint: Abdominal Pain Stated complaint: bloody stools Time Seen by Provider: 05/27/22 19:45 Source: patient Mode of arrival: Family Vehicle Limitations: no limitations History of Present Illness HPI narrative: 67-year-old female. Has a history of C diff. Has had approximately 5 episodes of this in the past. Is followed by gastroenterology. She recently completed a prolonged tapering of vancomycin after she had C diff the last time in March. She has had the need for esophageal variceal banding in the past. She is here for evaluation of a couple days of loose stools and then bloody stools today. Has had 2 episodes of bloody stools today. Some nausea but no vomiting. No fevers. Does have left-sided abdominal tenderness. She had a colonoscopy several years ago. Was told that she did not need to come back for 10 years. No recent travel. Related Data Home Medications Medication Instructions Recorded Confirmed Diphenhydramine Hydrochloride 25 mg PO Q DAY PRN Allergy 05/12/12 04/07/20 (BENADRYL) Symptoms ##0 metoprolol tartrate 50 mg tablet 50 mg PO BID ##0 05/12/12 04/07/20 tacrolimus 1 mg capsule, 0.5 mg PO BID ##0 05/12/12 04/07/20 immediate-release multivitamin 1 tab PO DAILY 03/19/18 04/07/20 Previous Rx's Medication Instructions Recorded ondansetron HCl 4 mg tablet 4 mg PO Q6H #7 tabs 04/05/20 (Zofran) promethazine 25 mg rectal 25 mg ME Q4-6H PRN post op nausea 04/05/20 suppository #1 ea CMP Estriol Cream 0.2% See Rx Instructions .Route 08/02/20 .COMPLEX #30 grams estradiol 10 mcg vaginal tablet See Rx Instructions .Route 04/14/22 .COMPLEX #36 tabs vancomycin 125 mg capsule 125 mg PO DIRECTED #85 caps 05/28/22 Allergies Allergy/AdvReac Type Severity Reaction Status Date / Time fentanyl Allergy Severe nausea and Verified 04/05/20 08:54 vomiting Sulfa (Sulfonamide Allergy Unknown Nausea Verified 04/05/20 08:52 Antibiotics) codeine AdvReac Intermediate Nausea Verified 04/05/20 08:52 Review of Systems Constitutional Constitutional: Reports system reviewed and no additional complaints, except as documented Cardiovascular Cardiovascular: Reports system reviewed and no additional complaints, except as documented Respiratory Respiratory: Reports system reviewed and no additional complaints, except as documented Gastrointestinal Gastrointestinal: Reports system reviewed and no additional complaints, except as documented Genitourinary Genitourinary: Reports system reviewed and no additional complaints, except as documented Integumentary/Breasts Skin/Breast: Reports system reviewed and no additional complaints, except as documented Neurologic Neurologic: Reports system reviewed and no additional complaints, except as documented Hematologic/Lymphatic On Anticoagulants: No Patient History Medical History Constipation Flank pain Hypertension Immunosuppression due to drug therapy Left fibular fracture (02/13/20) Post-menopausal bleeding Primary biliary cholangitis Surgical History (Updated 04/07/20 @ 08:01 by Gila Vera MD) History of third molar tooth extraction Liver transplant recipient Status post appendectomy Status post cholecystectomy Status post D&C Status post tonsillectomy and adenoidectomy Family History Mother Dementia Father Alzheimer disease Social History household members: spouse Smoking Status: Never smoker Smoking Status: Never smoker alcohol intake frequency: holidays/special occasions only Substance Use Type: does not use Exam Initial Vital Signs Initial Vital Signs: Vital Signs Temperature 98.1 F 05/27/22 18:25 Pulse Rate 71 05/27/22 18:25 Respiratory Rate 20 05/27/22 18:25 Blood Pressure 119/68 05/27/22 18:25 Pulse Oximetry 98 05/27/22 18:25 Oxygen Delivery Method 05/27/22 18:25 Const General: cooperative and No ill appearing [facility] Head: normal to inspection and normocephalic Resp Effort & Inspection: normal respiratory effort Cardio Rate: regular rate GI Inspection: normal to inspection and non-distended Palpation: tender Skin General: no rashes or lesions noted Neuro General: patient alert, patient awake and moves all extremities Extrem General: normal to inspection and capillary refill normal Psych Appearance: grossly normal and well kempt Course Orders Ordered: ED Orders 05/27/22 20:04 CT abdomen pelvis w con Stat 05/27/22 21:55 GI Panel (Film Array) Stat Occult Blood Screen Stat Discontinued Medications Hydrocodone Bitart/Acetaminophen (Hydrocodone/Acet 5/325 Tablet) 1 tab PO NOW ONE Stop: 05/27/22 22:29 Hydromorphone HCl (Hydromorphone 1 Mg Inj) 1 mg IV NOW ONE Stop: 05/27/22 22:47 Last Admin: 05/27/22 23:06 Dose: 1 mg Documented By: CONCEPCION Sodium Chloride (Normal Saline 0.9%) 1,000 mls @ 1,000 mls/hr IV BOLUS ONE Stop: 05/27/22 21:03 Last Infusion: 05/27/22 21:20 Dose: 0 mls/hr Documented By: Admin: 05/27/22 20:21 Dose: 1,000 mls/hr Documented By: CONCEPCION Ondansetron HCl (Ondansetron 4 Mg/2 Ml Inj) 4 mg IV NOW PRN PRN Reason: Nausea And Vomiting Last Admin: 05/27/22 21:14 Dose: 4 mg Documented By: CONCEPCION Ondansetron HCl (Ondansetron 4 Mg Odt) 4 mg SL NOW PRN PRN Reason: Nausea And Vomiting Pantoprazole Sodium (Pantoprazole 40 Mg Vial) 80 mg IV NOW ONE Stop: 05/27/22 18:34 Last Admin: 05/27/22 20:36 Dose: Not Given Documented By: CONCEPCION Vital Signs Vital signs: Vital Signs - 8 hr 05/27/22 23:06 05/27/22 23:17 Temperature 99.8 F H 99.8 F H Pulse Rate 77 Respiratory Rate 16 Blood Pressure 120/66 Pulse Oximetry 98 Oxygen Delivery Method Room Air Medical Decision Making Lab Data Lab results reviewed: Yes I reviewed the patient's lab results. Result diagrams: 05/27/22 19:05 05/27/22 19:05 Labs: Lab Results 05/27/22 05/27/22 05/27/22 Range/Units 19:05 19:05 19:05 WBC 5.0 (4.5-11.0) X10^3/uL RBC 3.50 L (4.0-5.2) X10^6/uL Hgb 11.3 L (12.0-16.0) g/dL Hct 32.4 L (36-46) % MCV 92.6 (80-100) fL MCH 32.3 (26-34) PG MCHC 34.9 (30-36) % RDW 13.8 (11.6-14.8) % Plt Count 53 L (150-400) X10^3/uL Neut % (Auto) 84.4 H (50-75) % Lymph % (Auto) 5.6 L (25-40) % [place] % (Auto) 7.6 (3-14) % Eos % (Auto) 2.0 (2-4) % Baso % (Auto) 0.4 (0-2) % Neut # (Auto) 4200 (9586-2908) /uL Lymph # (Auto) 300 L (1223-8013) /uL [place] # (Auto) 400 (0-900) /uL Eos # (Auto) 100 (0-450) /uL Baso # (Auto) 0 (0-100) /uL PT 19.2 H (10.1-12.7) SECONDS INR 1.7 H (0.9-1.3) APTT 36 (26-36) SECONDS Sodium 138 (137-145) mmol/L Potassium 3.7 (3.4-5.1) mmol/L Chloride 107 (98-107) mmol/L Carbon Dioxide 21 L (22-32) mmol/L BUN 18 H (7-17) mg/dL Creatinine 1.13 H (0.52-1.04) mg/dL Estimated GFR 54 L (>60) mL/min BUN/Creatinine Ratio 15.9 (6-22) Glucose 102 (80-110) mg/dL Calcium 8.9 (8.4-10.2) mg/dL Total Bilirubin 0.8 (0.2-1.3) mg/dL AST 37 H (14-36) IU/L ALT 26 (<35) IU/L Alkaline Phosphatase 104 (38-126) U/L Total Protein 8.2 (6.3-8.2) g/dL Albumin 4.1 (3.5-5.0) g/dL Globulin 4.1 (1.7-4.1) g/dL Albumin/Globulin Ratio 1.0 (1.0-2.8) Stool Occult Blood (Negative) Stl C. cayetanensis PCR (Not Detect) Stool Rotavirus (PCR) (Not Detect) Stool Adenovirus (PCR) (Not Detect) Stool Astrovirus (PCR) (Not Detect) Stool Cryptosporidium PCR (Not Detect) Stl E.coli Shiga Tox PCR (Not Detect) St Sh/Enteroin Ecoli PCR (Not Detect) Stool E coli O157 PCR Stl Enterotoxigenic E PCR (Not Detect) Stool EPEC (PCR) (Not Detect) Stl E. histolytica PCR (Not Detect) Stool Giardia Lamblia PCR (Not Detect) Stool Sapovirus (PCR) (Not Detect) Stl P. shigelloides PCR (Not Detect) St Y.enterocolitica PCR (Not Detect) Stool Vibrio (PCR) (Not Detect) Stl Vibrio cholerae PCR (Not Detect) Stl Enteroaggr Ecoli PCR (Not Detect) Stl Norovirus GI/GII PCR (Not Detect) Campylobacter (PCR) (Not Detect) C. difficile Tox (PCR) (Not Detect) Salmonella (PCR) (Not Detect) Blood Type Antibody Screen 05/27/22 05/27/22 05/27/22 Range/Units 19:05 21:55 21:55 WBC (4.5-11.0) X10^3/uL RBC (4.0-5.2) X10^6/uL Hgb (12.0-16.0) g/dL Hct (36-46) % MCV (80-100) fL MCH (26-34) PG MCHC (30-36) % RDW (11.6-14.8) % Plt Count (150-400) X10^3/uL Neut % (Auto) (50-75) % Lymph % (Auto) (25-40) % [place] % (Auto) (3-14) % Eos % (Auto) (2-4) % Baso % (Auto) (0-2) % Neut # (Auto) (1151-0775) /uL Lymph # (Auto) (3475-1712) /uL [place] # (Auto) (0-900) /uL Eos # (Auto) (0-450) /uL Baso # (Auto) (0-100) /uL PT (10.1-12.7) SECONDS INR (0.9-1.3) APTT (26-36) SECONDS Sodium (137-145) mmol/L Potassium (3.4-5.1) mmol/L Chloride (98-107) mmol/L Carbon Dioxide (22-32) mmol/L BUN (7-17) mg/dL Creatinine (0.52-1.04) mg/dL Estimated GFR (>60) mL/min BUN/Creatinine Ratio (6-22) Glucose (80-110) mg/dL Calcium (8.4-10.2) mg/dL Total Bilirubin (0.2-1.3) mg/dL AST (14-36) IU/L ALT (<35) IU/L Alkaline Phosphatase (38-126) U/L Total Protein (6.3-8.2) g/dL Albumin (3.5-5.0) g/dL Globulin (1.7-4.1) g/dL Albumin/Globulin Ratio (1.0-2.8) Stool Occult Blood Positive H (Negative) Stl C. cayetanensis PCR Not detected (Not Detect) Stool Rotavirus (PCR) Not detected (Not Detect) Stool Adenovirus (PCR) Not detected (Not Detect) Stool Astrovirus (PCR) Not detected (Not Detect) Stool Cryptosporidium PCR Not detected (Not Detect) Stl E.coli Shiga Tox PCR Not detected (Not Detect) St Sh/Enteroin Ecoli PCR Not detected (Not Detect) Stool E coli O157 PCR Not Reportable Stl Enterotoxigenic E PCR Not detected (Not Detect) Stool EPEC (PCR) Not detected (Not Detect) Stl E. histolytica PCR Not detected (Not Detect) Stool Giardia Lamblia PCR Not detected (Not Detect) Stool Sapovirus (PCR) Not detected (Not Detect) Stl P. shigelloides PCR Not detected (Not Detect) St Y.enterocolitica PCR Not detected (Not Detect) Stool Vibrio (PCR) Not detected (Not Detect) Stl Vibrio cholerae PCR Not detected (Not Detect) Stl Enteroaggr Ecoli PCR Not detected (Not Detect) Stl Norovirus GI/GII PCR Not detected (Not Detect) Campylobacter (PCR) Not detected (Not Detect) C. difficile Tox (PCR) Detected H (Not Detect) Salmonella (PCR) Not detected (Not Detect) Blood Type O Negative Antibody Screen Negative Urine Dip Bedside Urine Glucose Negative Bedside Urine Bilirubin - Negative Bedside Urine Ketone - Negative Urine Specific [place] 1.010 Bedside Urine Occult Blood - Negative Bedside Urine pH 6.0 Bedside Urine Protein - Negative Bedside Urine Urobilinogen - Negative Bedside Urine Nitrite - Negative Bedside Urine Leukocytes - Negative Esterase Point of care testing: Urine Dip Bedside Urine Glucose Negative Bedside Urine Bilirubin - Negative Bedside Urine Ketone - Negative Urine Specific [place] 1.010 Bedside Urine Occult Blood - Negative Bedside Urine pH 6.0 Bedside Urine Protein - Negative Bedside Urine Urobilinogen - Negative Bedside Urine Nitrite - Negative Bedside Urine Leukocytes - Negative Esterase Imaging Data CT scan - abdomen/pelvis: Radiologist's Impression: [address] [address] [address] Scan Report Signed Patient: Freda Garcia MR#: [id number] : 1955 Acct:[id number] Age/Sex: 67 / F Date of Service: 05/27/22 Loc: ED Accession Number: [id number] ?? Procedure: CT abdomen pelvis w con Ordering Provider: Rigoberto Carrillo D.O. PROCEDURE:? CT ABDOMEN PELVIS W CON ? INDICATIONS:? LLQ abd pain with rectal bleeding ? TECHNIQUE:? After the administration of IV contrast, axial sections were acquired from the lung bases to the pubic symphysis.? Coronal and sagittal reformats were performed.? For radiation dose reduction, the following was used:? automated exposure control, adjustment of mA and/or kV according to patient size. ? COMPARISON:? [facility], CT, CT ABDOMEN PELVIS WO CON, 04/07/2020, 5:50. ? FINDINGS:? Image quality:? Chest x-ray 05/23/2022 wall ? Lung bases:? There is mild dependent atelectasis.? ? Heart:? Heart is normal in size.? There is a small hiatal hernia. ? ? ABDOMEN: Liver:? The liver is heterogeneous and nodular in contour consistent with cirrhosis.? There is mild periportal edema. Gallbladder:? Surgically absent. Biliary ducts:? There is mild biliary ductal dilatation. Pancreas:? Unremarkable.? ? Spleen:? The spleen is markedly enlarged, measuring up to 19.0 cm. Adrenal Glands:? No adrenal nodules.? ? Kidneys and Ureters:? No hydronephrosis.? ? ? Stomach and Bowel:? Stomach and small bowel loops are normal in caliber and wall thickness.? No pericecal inflammatory changes to suggest appendicitis.? There is mild colonic wall thickening in the rectosigmoid colon with mild pericolonic fat stranding suggestive of a mild colitis. Peritoneum:? No abnormal intraperitoneal fluid.? No free air.? ? Ventral Wall: ? No hernia.? Abdominal Nodes:? No retroperitoneal or mesenteric adenopathy by size criteria.? Vessels:? Aorta and inferior vena cava are normal in size.? Multiple splenic varices are demonstrated as well as varices in the right abdomen.? A recanalized paraumbilical vein is present.? Prominent varices also noted within the left pelvis. ? PELVIS: Pelvic Organs:? Unremarkable.? ? Bladder:? Unremarkable.? ? Pelvic Nodes: No enlarged lymph nodes.? Miscellaneous: No inguinal hernias are seen. ? ? ? Bones:? Visualized osseous structures demonstrate no suspicious focal lesions. ? IMPRESSION:? ? 1. Mild colonic wall thickening in the rectosigmoid colon with mild pericolonic fat stranding suggestive of a mild colitis. ? 2. Findings consistent with cirrhosis and portal hypertension including marked splenomegaly, extensive varices throughout the abdomen, and a recanalized paraumbilical vein.? ? ? Dictated by: Mohsen Byrd M.D. on 05/27/2022 at 21:36 ? ? Approved by: Mohsen Byrd M.D. on 05/27/2022 at 21:53?? ECG Data Attestation: I personally reviewed and interpreted this ECG as follows: Interpretation: Sinus rhythm Ventricular rate is 67 Normal axis Normal QRS Normal QTC Nonspecific ST T wave changes MDM Narrative Medical decision making narrative: Patient's CT scan does show colitis and also abdominal varices. She was informed of these varices. She knew that she had issues with esophageal varices been not know that they were now intra-abdominal. I did inform her that she does need to talk with her seasoning sprayer and other specialists regarding this. She was discharged for her GI panel resulted. It did eventually show that she had C diff in her stool. I contacted her at the number provided and did inform him of this resolved. Prior to the discharge we did talk about the possibility that even though she was C diff positive in her stool then it may not be an active infection although she is having diarrhea and blood in her stool and abdominal pain. She also has colitis on her CT scan. I discussed with the patient's options to include starting her on vancomycin once again. We also discussed starting her on fidaxomicin or even waiting for her to talk with her GI doctor about restarting any antibiotics. After this discussion he opted to have me prescribe the vancomycin and he will contact the patient's GI doctor tomorrow for a follow-up. Patient was given return precautions. Discharge Plan Departure Patient Disposition: Home Clinical Impression: Colitis, Rectal bleeding, Abdominal varicosities Instructions: DI for Colitis Activity Restrictions/Additional Instructions: I recommend that you continue to take all of your medications as directed. Contact your primary doctor tomorrow for a follow-up. I also recommend you contact your GI provider. I will contact you with the numbers that you provided when the GI panel that is pending at the time of your discharge results. Return to the emergency department for any new or worsening symptoms Prescriptions: New vancomycin 125 mg capsule 125 mg PO DIRECTED Qty: 85 0RF Rx Instructions: 1T PO QID for 14D then 1T PO BID for 7D then 1T PO QD for 7D then 1T PO every other day until gone No Action tacrolimus 1 MG capsule 0.5 mg PO BID Qty: 0 Label Comments: 0.5 mg BID metoprolol tartrate 50 MG tablet 50 mg PO BID Qty: 0 Diphenhydramine Hydrochloride (BENADRYL) 25 mg PO Q DAY PRN (Reason: Allergy Symptoms) Qty: 0 CMP Estriol Cream 0.2% See Rx Instructions .ROUTE .COMPLEX Qty: 30 3RF Rx Instructions: Apply Small amount to external genitalia 3x weekly estradiol 10 mcg tablet See Rx Instructions .ROUTE .COMPLEX Qty: 36 3RF Dose Instruction: INSERT ONE TABLET VAGINALLY THREE TIMES A WEEK Rx Instructions: INSERT ONE TABLET VAGINALLY THREE TIMES A WEEK multivitamin Tablet 1 tab PO DAILY ondansetron HCl [Zofran] 4 mg tablet 4 mg PO Q6H Qty: 7 0RF promethazine 25 mg suppository 25 mg ME Q4-6H PRN (Reason: post op nausea) Qty: 1 0RF Referrals: Sharon Darnell DO [Primary Care Provider] - Visit Report Forms: Patient Portal/API
--- NOTE | 2022-05-27 20:04 | DI.CT.S_ITS ---
PROCEDURE: CT ABDOMEN PELVIS W CON INDICATIONS: LLQ abd pain with rectal bleeding TECHNIQUE: After the administration of IV contrast, axial sections were acquired from the lung bases to the pubic symphysis. Coronal and sagittal reformats were performed. For radiation dose reduction, the following was used: automated exposure control, adjustment of mA and/or kV according to patient size. COMPARISON: [facility], CT, CT ABDOMEN PELVIS WO CON, 04/07/2020, 5:50. FINDINGS: Image quality: Chest x-ray 05/23/2022 wall Lung bases: There is mild dependent atelectasis. Heart: Heart is normal in size. There is a small hiatal hernia. ABDOMEN: Liver: The liver is heterogeneous and nodular in contour consistent with cirrhosis. There is mild periportal edema. Gallbladder: Surgically absent. Biliary ducts: There is mild biliary ductal dilatation. Pancreas: Unremarkable. Spleen: The spleen is markedly enlarged, measuring up to 19.0 cm. Adrenal Glands: No adrenal nodules. Kidneys and Ureters: No hydronephrosis. Stomach and Bowel: Stomach and small bowel loops are normal in caliber and wall thickness. No pericecal inflammatory changes to suggest appendicitis. There is mild colonic wall thickening in the rectosigmoid colon with mild pericolonic fat stranding suggestive of a mild colitis. Peritoneum: No abnormal intraperitoneal fluid. No free air. Ventral Wall: No hernia. Abdominal Nodes: No retroperitoneal or mesenteric adenopathy by size criteria. Vessels: Aorta and inferior vena cava are normal in size. Multiple splenic varices are demonstrated as well as varices in the right abdomen. A recanalized paraumbilical vein is present. Prominent varices also noted within the left pelvis. PELVIS: Pelvic Organs: Unremarkable. Bladder: Unremarkable. Pelvic Nodes: No enlarged lymph nodes. Miscellaneous: No inguinal hernias are seen. Bones: Visualized osseous structures demonstrate no suspicious focal lesions. IMPRESSION: 1. Mild colonic wall thickening in the rectosigmoid colon with mild pericolonic fat stranding suggestive of a mild colitis. 2. Findings consistent with cirrhosis and portal hypertension including marked splenomegaly, extensive varices throughout the abdomen, and a recanalized paraumbilical vein. Dictated by: Mohsen Byrd M.D. on 05/27/2022 at 21:36 Approved by: Mohsen Byrd M.D. on 05/27/2022 at 21:53
[2022-05-27 20:15] LABS: Add Manual Diff / Slide Review NO; Basophils Absolute Auto 0 /uL (0-100); Basophils Percent Auto 0.4 % (0-2); Eosinophils Absolute Auto 100 /uL (0-450); Hematocrit 32.4 % (36-46); Hemoglobin 11.3 g/dL (12.0-16.0); Lymphocytes Absolute Auto 300 /uL (1100-4500); Lymphocytes Percent Auto 5.6 % (25-40); Mean Corpuscular HGB Conc 34.9 % (30-36); Mean Corpuscular Hemoglobin 32.3 PG (26-34); Mean Corpuscular Volume 92.6 fL (80-100); Monocytes Absolute Auto 400 /uL (0-900); Monocytes Percent Auto 7.6 % (3-14); Neutrophils Absolute Auto 4200 /uL (1500-7000); Neutrophils Percent Auto 84.4 % (50-75); Platelet Count 53 X10^3/uL (150-400); Red Cell Distribution Width 13.8 % (11.6-14.8)
[2022-05-27 20:21] LABS: INR 1.7 (0.9-1.3); Prothrombin Time 19.2 SECONDS (10.1-12.7)
[2022-05-27] MEDS: SODIUM CHLORIDE 0.9% 1,000 ML 1000 ML IV (20:21)
[2022-05-27 20:24] LABS: PTT Partial Thromboplastin Tim 36 SECONDS (26-36)
[2022-05-27 20:25] LABS: Alanine Aminotransferase 26 IU/L (<35); Albumin 4.1 g/dL (3.5-5.0); Alkaline Phosphatase 104 U/L (38-126); Aspartate Aminotransferase 37 IU/L (14-36); BUN Creatinine Ratio 15.9 (6-22); Bilirubin Total 0.8 mg/dL (0.2-1.3); Blood Urea Nitrogen 18 mg/dL (7-17); Calcium 8.9 mg/dL (8.4-10.2); Carbon Dioxide 21 mmol/L (22-32); Chloride 107 mmol/L (98-107); Estimated Glomerular Filt Rate 54 mL/min (>60); Globulin 4.1 g/dL (1.7-4.1); Glucose 102 mg/dL (80-110); HEMOLYSIS < 15 (0-50); Potassium 3.7 mmol/L (3.4-5.1); Sodium 138 mmol/L (137-145); Total Protein 8.2 g/dL (6.3-8.2)
[2022-05-27] MEDS: ONDANSETRON 4 MG/2 ML INJ IV (21:14)
[2022-05-27 22:01] LABS: Occult Blood 1 Positive (Negative)
[2022-05-27 23:06] VITALS: TEMP 37.7
[2022-05-27] MEDS: HYDROMORPHONE 1 MG INJ IV (23:06)
[2022-05-27 23:17] VITALS: BP 120/66; PULSE 77; RESP 16; TEMP 37.7; O2SAT 98
[2022-05-27 23:39] LABS: Campylobacter Not Detected (Not Detect); Clostridium difficile toxin AB Detected (Not Detect); Enteroaggregative E.coli Not Detected (Not Detect); Enteropathogenic E.coli Not Detected (Not Detect); Plesiomonsa shigelloides Not Detected (Not Detect); Salmonella Not Detected (Not Detect); Vibrio Not Detected (Not Detect); Vibrio cholerae Not Detected (Not Detect); Yersinia enterocolitica Not Detected (Not Detect)
[2022-05-27 23:40] LABS: Adenovirus F 40/41 Not Detected (Not Detect); Astrovirus Not Detected (Not Detect); Cryptosporidium Not Detected (Not Detect); Cyclospora cayetanensis Not Detected (Not Detect); Entamoeba histolytica Not Detected (Not Detect); Enterotoxigenic E.coli It/st Not Detected (Not Detect); Giardia lamblia Not Detected (Not Detect); Norovirus GI/GII Not Detected (Not Detect); Rotavirus A Not Detected (Not Detect); Sapovirus Not Detected (Not Detect); Shiga-like toxin-prod E.coli Not Detected (Not Detect); Shigella/Enteroinvasive E.coli Not Detected (Not Detect)
[2022-05-29 17:35] LABS: C difficie Toxins A and B, EIA Positive (Negative)
== END 2022-05-27 23:10 | disposition home or self-care (01) ==
PROVIDERS: Emergency Provider Emergency Medicine; PCP Family Medicine
DX: K52.9 Noninfective gastroenteritis and colitis, unspecified (principal); K62.5 Hemorrhage of anus and rectum; I86.8 Varicose veins of other specified sites
CPT/HCPCS: 36415; 74177; 80053; 81003; 82270; 85025; 85610; 85730; 86850; 86900; 86901; 87324; 87507; 93005; 96374; 96375; 99284; J1170; J2405; Q9967

== ENCOUNTER 2022-05-28 18:14 | Emergency (ER) | payer MEDICARE, SELFPAY ==
[2020-04-07 04:24] VITALS: BMI 20.1
[2022-05-28 18:24] VITALS: BP 113/62; PULSE 81; RESP 18; TEMP 37.7; O2SAT 99; BMI 19.3
--- NOTE | 2022-05-28 19:13 | ED.NAVMDI ---
HPI - Nausea/Vomiting/Diarrhea General Chief complaint: Nausea/Vomiting/Diarrhea Stated complaint: states c-diff, transplant pt Time Seen by Provider: 05/28/22 18:38 Source: patient and family Mode of arrival: Ambulatory Limitations: no limitations History of Present Illness HPI Narrative: Patient is a 67-year-old female who I evaluated the emergency department last evening. Patient was discharged home. After discharge her stool PCR resulted as positive for C diff. She is had C diff multiple times in the past. I contacted the patient's family. A prescription of vancomycin was sent to the pharmacy of their choice. She is had 2 doses that medication today. She is to she has had couple episodes of diarrhea today. Is having quite a bit of nausea. Is feeling very fatigued. No fevers. Her has been taking her blood pressure at home. Per his report there were a couple episodes of low blood pressures with a systolic in the low 100s/90s. He contacted her GI provider in [facility]. They were on their way to the [facility] emergency department to be further re-evaluated when the patient started to vomit. They state that the GI providers office and they were concerned about sepsis. Related Data Home Medications Medication Instructions Recorded Confirmed Diphenhydramine Hydrochloride 25 mg PO Q DAY PRN Allergy 05/12/12 04/07/20 (BENADRYL) Symptoms ##0 metoprolol tartrate 50 mg tablet 50 mg PO BID ##0 05/12/12 04/07/20 tacrolimus 1 mg capsule, 0.5 mg PO BID ##0 05/12/12 04/07/20 immediate-release multivitamin 1 tab PO DAILY 03/19/18 04/07/20 Previous Rx's Medication Instructions Recorded ondansetron HCl 4 mg tablet 4 mg PO Q6H #7 tabs 04/05/20 (Zofran) promethazine 25 mg rectal 25 mg OK Q4-6H PRN post op nausea 04/05/20 suppository #1 ea CMP Estriol Cream 0.2% See Rx Instructions .Route 08/02/20 .COMPLEX #30 grams estradiol 10 mcg vaginal tablet See Rx Instructions .Route 04/14/22 .COMPLEX #36 tabs vancomycin 125 mg capsule 125 mg PO DIRECTED #85 caps 05/28/22 ondansetron 4 mg disintegrating 4 mg PO Q6H PRN nausea and 05/29/22 tablet vomiting #14 tabs promethazine 12.5 mg rectal 12.5 mg OK Q4-6H PRN nausea and 05/29/22 suppository vomiting #12 ea Allergies Allergy/AdvReac Type Severity Reaction Status Date / Time fentanyl Allergy Severe nausea and Verified 05/28/22 18:23 vomiting Sulfa (Sulfonamide Allergy Unknown Nausea Verified 05/28/22 18:23 Antibiotics) codeine AdvReac Intermediate Nausea Verified 05/28/22 18:23 Review of Systems Constitutional Constitutional: Reports system reviewed and no additional complaints, except as documented Cardiovascular Cardiovascular: Reports system reviewed and no additional complaints, except as documented Respiratory Respiratory: Reports system reviewed and no additional complaints, except as documented Gastrointestinal Gastrointestinal: Reports system reviewed and no additional complaints, except as documented Integumentary/Breasts Skin/Breast: Reports system reviewed and no additional complaints, except as documented Neurologic Neurologic: Reports system reviewed and no additional complaints, except as documented Hematologic/Lymphatic On Anticoagulants: No Patient History Medical History Constipation Flank pain Hypertension Immunosuppression due to drug therapy Left fibular fracture (02/13/20) Post-menopausal bleeding Primary biliary cholangitis Surgical History (Updated 04/07/20 @ 08:01 by Gila Vera MD) History of third molar tooth extraction Liver transplant recipient Status post appendectomy Status post cholecystectomy Status post D&C Status post tonsillectomy and adenoidectomy Family History Mother Dementia Father Alzheimer disease Social History household members: spouse Smoking Status: Never smoker Smoking Status: Never smoker alcohol intake frequency: holidays/special occasions only Substance Use Type: does not use Exam Initial Vital Signs Initial Vital Signs: Vital Signs Temperature 99.8 F H 05/28/22 18:24 Pulse Rate 81 05/28/22 18:24 Respiratory Rate 18 05/28/22 18:24 Blood Pressure 113/62 05/28/22 18:24 Pulse Oximetry 99 05/28/22 18:24 Oxygen Delivery Method 05/28/22 18:24 HENMT Head: normal to inspection and normocephalic Resp Effort & Inspection: normal respiratory effort Auscultation: clear to auscultation bilaterally Cardio Rate: regular rate Rhythm: regular rhythm GI Inspection: normal to inspection and non-distended Palpation: soft Skin General: no rashes or lesions noted Neuro General: patient alert, patient awake and moves all extremities Extrem General: normal to inspection Course Orders Ordered: ED Orders 05/28/22 19:15 Complete Blood Count AUTO DIFF Stat Comprehensive Metabolic Panel Stat Lactate (Lactic Acid) Stat Lipase Stat Phosphorous Stat 05/28/22 19:50 Blood Culture Stat Discontinued Medications Sodium Chloride (Normal Saline 0.9%) 1,000 mls @ 1,000 mls/hr IV BOLUS ONE Stop: 05/28/22 19:38 Last Infusion: 05/28/22 21:19 Dose: 0 mls/hr Documented By: Admin: 05/28/22 19:28 Dose: 1,000 mls/hr Documented By: ESTEFANY Sodium Chloride (Normal Saline 0.9%) 1,000 mls @ 1,000 mls/hr IV BOLUS ONE Stop: 05/28/22 22:14 Last Infusion: 05/29/22 00:27 Dose: 0 mls/hr Documented By: Admin: 05/28/22 21:42 Dose: 1,000 mls/hr Documented By: KALEE Metoclopramide HCl (Metoclopramide 10 Mg/2 Ml Inj) 10 mg IV NOW ONE Stop: 05/28/22 23:31 Last Admin: 05/29/22 00:32 Dose: 10 mg Documented By: KALEE Ondansetron HCl (Ondansetron 4 Mg/2 Ml Inj) 4 mg IV NOW ONE Stop: 05/28/22 19:14 Last Admin: 05/28/22 19:23 Dose: 4 mg Documented By: ESTEFANY Ondansetron HCl (Ondansetron 4 Mg Odt Prepack) 1 bottle MISC SEEINSTR ONE Stop: 05/29/22 00:47 Last Admin: 05/29/22 00:54 Dose: 1 bottle Documented By: KALEE Vital Signs Vital signs: Vital Signs - 8 hr 05/28/22 20:08 05/28/22 20:53 05/28/22 21:30 Temperature Pulse Rate 78 70 80 Respiratory Rate 16 16 17 Blood Pressure 113/58 L 110/55 L 105/55 L Pulse Oximetry 99 98 99 Oxygen Delivery Method Room Air 05/28/22 21:46 05/28/22 23:13 05/29/22 01:10 Temperature 98.6 F Pulse Rate 82 82 83 Respiratory Rate 17 14 16 Blood Pressure 110/58 L 107/59 L 111/60 Pulse Oximetry 98 98 100 Oxygen Delivery Method Room Air Room Air MDM - Nausea/Vomiting/Diarrhea Medical Records Attestation: I reviewed the patient's medical records. Lab Data Attestation: I reviewed the patient's lab results. Result diagrams: 05/28/22 19:15 05/28/22 19:15 Labs: Lab Results 05/28/22 05/28/22 05/28/22 Range/Units 19:15 19:15 19:15 WBC 5.4 (4.5-11.0) X10^3/uL RBC 3.23 L (4.0-5.2) X10^6/uL Hgb 10.4 L (12.0-16.0) g/dL Hct 30.2 L (36-46) % MCV 93.6 (80-100) fL MCH 32.3 (26-34) PG MCHC 34.5 (30-36) % RDW 13.7 (11.6-14.8) % Plt Count 47 L (150-400) X10^3/uL Neut % (Auto) 85.3 H (50-75) % Lymph % (Auto) 4.8 L (25-40) % [place] % (Auto) 8.0 (3-14) % Eos % (Auto) 1.7 L (2-4) % Baso % (Auto) 0.2 (0-2) % Neut # (Auto) 4600 (8352-7470) /uL Lymph # (Auto) 300 L (8407-2194) /uL [place] # (Auto) 400 (0-900) /uL Eos # (Auto) 100 (0-450) /uL Baso # (Auto) 0 (0-100) /uL Sodium 139 (137-145) mmol/L Potassium 3.4 (3.4-5.1) mmol/L Chloride 107 (98-107) mmol/L Carbon Dioxide 22 (22-32) mmol/L BUN 17 (7-17) mg/dL Creatinine 1.05 H (0.52-1.04) mg/dL Estimated GFR 59 L (>60) mL/min BUN/Creatinine Ratio 16.2 (6-22) Glucose 117 H (80-110) mg/dL Lactate 1.2 (0.7-2.1) mmol/L Calcium 8.8 (8.4-10.2) mg/dL Phosphorus (2.8-4.1) mg/dL Total Bilirubin 1.3 (0.2-1.3) mg/dL AST 31 (14-36) IU/L ALT 26 (<35) IU/L Alkaline Phosphatase 103 (38-126) U/L Total Protein 7.6 (6.3-8.2) g/dL Albumin 3.8 (3.5-5.0) g/dL Globulin 3.8 (1.7-4.1) g/dL Albumin/Globulin Ratio 1.0 (1.0-2.8) Lipase 64 (23-300) U/L // Range/Units 19:15 WBC (4.5-11.0) X10^3/uL RBC (4.0-5.2) X10^6/uL Hgb (12.0-16.0) g/dL Hct (36-46) % MCV (80-100) fL MCH (26-34) PG MCHC (30-36) % RDW (11.6-14.8) % Plt Count (150-400) X10^3/uL Neut % (Auto) (50-75) % Lymph % (Auto) (25-40) % [place] % (Auto) (3-14) % Eos % (Auto) (2-4) % Baso % (Auto) (0-2) % Neut # (Auto) (7124-9604) /uL Lymph # (Auto) (3514-0295) /uL [place] # (Auto) (0-900) /uL Eos # (Auto) (0-450) /uL Baso # (Auto) (0-100) /uL Sodium (137-145) mmol/L Potassium (3.4-5.1) mmol/L Chloride (98-107) mmol/L Carbon Dioxide (22-32) mmol/L BUN (7-17) mg/dL Creatinine (0.52-1.04) mg/dL Estimated GFR (>60) mL/min BUN/Creatinine Ratio (6-22) Glucose (80-110) mg/dL Lactate (0.7-2.1) mmol/L Calcium (8.4-10.2) mg/dL Phosphorus 2.9 (2.8-4.1) mg/dL Total Bilirubin (0.2-1.3) mg/dL AST (14-36) IU/L ALT (<35) IU/L Alkaline Phosphatase (38-126) U/L Total Protein (6.3-8.2) g/dL Albumin (3.5-5.0) g/dL Globulin (1.7-4.1) g/dL Albumin/Globulin Ratio (1.0-2.8) Lipase (23-300) U/L MDM Narrative Medical decision making narrative: Lab work today his relatively unremarkable/unchanged from last evening. She is a benign exam. Tolerated her medications. Received 2 L of fluid. Blood cultures were obtained. She is tolerating her oral vancomycin. Did have somewhat of a difficult time controlling her nausea. Attempted Zofran and Reglan. Patient states she would like to be discharged home. We will sent home with a prescription for Phenergan as she has had this in the past. Will have her follow-up with her GI provider. She expressed understanding and agreement. Discharge Plan Departure Patient Disposition: Home Clinical Impression: C. difficile colitis, Nausea Instructions: Clostridioides (Clostridium) difficile Infection Activity Restrictions/Additional Instructions: I do recommend that you increase your fluid intake by drinking small amounts of fluid over longer periods of time. Contact your GI provider for a follow-up. Return to the emergency department for any new symptoms. Prescriptions: New ondansetron 4 mg tablet,disintegrating 4 mg PO Q6H PRN (Reason: nausea and vomiting) Qty: 14 0RF promethazine 12.5 mg suppository 12.5 mg OK Q4-6H PRN (Reason: nausea and vomiting) Qty: 12 0RF No Action tacrolimus 1 MG capsule 0.5 mg PO BID Qty: 0 Label Comments: 0.5 mg BID metoprolol tartrate 50 MG tablet 50 mg PO BID Qty: 0 Diphenhydramine Hydrochloride (BENADRYL) 25 mg PO Q DAY PRN (Reason: Allergy Symptoms) Qty: 0 CMP Estriol Cream 0.2% See Rx Instructions .ROUTE .COMPLEX Qty: 30 3RF Rx Instructions: Apply Small amount to external genitalia 3x weekly estradiol 10 mcg tablet See Rx Instructions .ROUTE .COMPLEX Qty: 36 3RF Dose Instruction: INSERT ONE TABLET VAGINALLY THREE TIMES A WEEK Rx Instructions: INSERT ONE TABLET VAGINALLY THREE TIMES A WEEK multivitamin Tablet 1 tab PO DAILY ondansetron HCl [Zofran] 4 mg tablet 4 mg PO Q6H Qty: 7 0RF promethazine 25 mg suppository 25 mg OK Q4-6H PRN (Reason: post op nausea) Qty: 1 0RF vancomycin 125 mg capsule 125 mg PO DIRECTED Qty: 85 0RF Rx Instructions: 1T PO QID for 14D then 1T PO BID for 7D then 1T PO QD for 7D then 1T PO every other day until gone Referrals: Sharon Darnell DO [Primary Care Provider] - Visit Report Forms: Patient Portal/API
[2022-05-28] MEDS: ONDANSETRON 4 MG/2 ML INJ IV (19:23)
[2022-05-28] MEDS: SODIUM CHLORIDE 0.9% 1,000 ML 1000 ML IV ×2 (19:28→21:42)
[2022-05-28 19:57] LABS: Add Manual Diff / Slide Review NO; Basophils Absolute Auto 0 /uL (0-100); Basophils Percent Auto 0.2 % (0-2); Eosinophils Absolute Auto 100 /uL (0-450); Eosinophils Percent Auto 1.7 % (2-4); Hematocrit 30.2 % (36-46); Hemoglobin 10.4 g/dL (12.0-16.0); Lymphocytes Absolute Auto 300 /uL (1100-4500); Lymphocytes Percent Auto 4.8 % (25-40); Mean Corpuscular HGB Conc 34.5 % (30-36); Mean Corpuscular Hemoglobin 32.3 PG (26-34); Mean Corpuscular Volume 93.6 fL (80-100); Monocytes Absolute Auto 400 /uL (0-900); Neutrophils Absolute Auto 4600 /uL (1500-7000); Neutrophils Percent Auto 85.3 % (50-75); Platelet Count 47 X10^3/uL (150-400); Red Blood Cell Count 3.23 X10^6/uL (4.0-5.2); Red Cell Distribution Width 13.7 % (11.6-14.8); White Blood Cell Count 5.4 X10^3/uL (4.5-11.0)
[2022-05-28 20:01] LABS: Alanine Aminotransferase 26 IU/L (<35); Albumin 3.8 g/dL (3.5-5.0); Alkaline Phosphatase 103 U/L (38-126); Aspartate Aminotransferase 31 IU/L (14-36); BUN Creatinine Ratio 16.2 (6-22); Bilirubin Total 1.3 mg/dL (0.2-1.3); Blood Urea Nitrogen 17 mg/dL (7-17); Calcium 8.8 mg/dL (8.4-10.2); Carbon Dioxide 22 mmol/L (22-32); Chloride 107 mmol/L (98-107); Estimated Glomerular Filt Rate 59 mL/min (>60); Globulin 3.8 g/dL (1.7-4.1); Glucose 117 mg/dL (80-110); HEMOLYSIS < 15 (0-50); Lipase 64 U/L (23-300); Phosphorous 2.9 mg/dL (2.8-4.1); Potassium 3.4 mmol/L (3.4-5.1); Sodium 139 mmol/L (137-145); Total Protein 7.6 g/dL (6.3-8.2)
[2022-05-28 20:02] LABS: Lactate (Lactic Acid) 1.2 mmol/L (0.7-2.1)
[2022-05-28 20:08] VITALS: BP 113/58; PULSE 78; RESP 16; O2SAT 99
[2022-05-28 20:53] VITALS: BP 110/55; PULSE 70; RESP 16; O2SAT 98
[2022-05-28 21:30] VITALS: BP 105/55; PULSE 80; RESP 17; O2SAT 99
[2022-05-28 21:46] VITALS: BP 110/58; PULSE 82; RESP 17; O2SAT 98
[2022-05-28 23:13] VITALS: BP 107/59; PULSE 82; RESP 14; O2SAT 98
[2022-05-29] MEDS: METOCLOPRAMIDE 10 MG/2 ML INJ IV (00:32)
[2022-05-29] MEDS: ONDANSETRON 4 MG ODT PREPACK 1 BOTTLE MISC (00:54)
[2022-05-29 01:10] VITALS: BP 111/60; PULSE 83; RESP 16; TEMP 37; O2SAT 100
== END 2022-05-29 01:08 | disposition home or self-care (01) ==
PROVIDERS: Emergency Provider Emergency Medicine; PCP Family Medicine
DX: A04.72 Enterocolitis due to Clostridium difficile, not specified as recurrent (principal); R11.0 Nausea
CPT/HCPCS: 36415; 80053; 83605; 83690; 84100; 85025; 87040; 96361; 96374; 96375; 99284; J2405; J2765

== ENCOUNTER 2023-06-03 07:47 | Emergency (ER) | payer MEDICARE, SELFPAY ==
[2020-04-07 04:24] VITALS: BMI 20.1
[2023-06-03] VITALS (12 sets, daily range): BP systolic 109–129; BP diastolic 56–70; PULSE 71–80; RESP 11–30; TEMP 36.9; O2SAT 93–99; BMI 21.2
[2023-06-03] MEDS: HYDROMORPHONE 0.5 MG INJ IV (08:14)
[2023-06-03] MEDS: ONDANSETRON 4 MG/2 ML INJ IV (08:16)
[2023-06-03 08:21] LABS: Add Manual Diff / Slide Review NO; Basophils Absolute Auto 0 /uL (0-100); Basophils Percent Auto 0.4 % (0-2); Eosinophils Absolute Auto 200 /uL (0-450); Eosinophils Percent Auto 4.3 % (2-4); Hematocrit 29.1 % (36-46); Hemoglobin 10.4 g/dL (12.0-16.0); Lymphocytes Absolute Auto 200 /uL (1100-4500); Lymphocytes Percent Auto 7.1 % (25-40); Mean Corpuscular HGB Conc 35.7 % (30-36); Mean Corpuscular Volume 89.6 fL (80-100); Monocytes Absolute Auto 300 /uL (0-900); Monocytes Percent Auto 9.1 % (3-14); Neutrophils Absolute Auto 2800 /uL (1500-7000); Neutrophils Percent Auto 79.1 % (50-75); Platelet Count 42 X10^3/uL (150-400); Red Blood Cell Count 3.25 X10^6/uL (4.0-5.2); Red Cell Distribution Width 14.1 % (11.6-14.8); White Blood Cell Count 3.5 X10^3/uL (4.5-11.0)
[2023-06-03 08:24] LABS: Lactate (Lactic Acid) 0.9 mmol/L (0.7-2.1)
[2023-06-03 08:26] LABS: Alanine Aminotransferase 22 IU/L (<35); Albumin 4.1 g/dL (3.5-5.0); Albumin Globulin Ratio 1.1 (1.0-2.8); Alkaline Phosphatase 79 U/L (38-126); Aspartate Aminotransferase 33 IU/L (14-36); BUN Creatinine Ratio 17.8 (6-22); Bilirubin Total 1.4 mg/dL (0.2-1.3); Blood Urea Nitrogen 19 mg/dL (7-17); Calcium 9.3 mg/dL (8.4-10.2); Carbon Dioxide 19 mmol/L (22-32); Chloride 111 mmol/L (98-107); Estimated Glomerular Filt Rate 57 mL/min (>60); Globulin 3.7 g/dL (1.7-4.1); Glucose 101 mg/dL (80-110); HEMOLYSIS < 15 (0-50); Lipase 75 U/L (23-300); Potassium 3.6 mmol/L (3.4-5.1); Sodium 138 mmol/L (137-145); Total Protein 7.8 g/dL (6.3-8.2)
--- NOTE | 2023-06-03 08:34 | ED.ABDPAIN ---
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 She reports that since April she has had increased diarrhea. Episodes of diarrhea very from 2-10 times. It has never been bloody until today. She started having severe abdominal cramping 2 days ago and then this morning she would 2 episode of bloody mucus stool. She has been seen by her transplant team earlier this month they thought that maybe she has Crohn's or ulcerative colitis. You to inability to tolerate sedation she has to have [facility] anesthesia for EGDs. She can not have a colonoscopy or EGD until September 06. She gets them regularly for her esophageal varices. She has since received Dilaudid for her pain which has helped quite a bit. She denies any hematemesis at all she has not nauseous. However she has significant decreased appetite. Related Data Home Medications Medication Instructions Recorded Confirmed Diphenhydramine Hydrochloride 25 mg PO Q DAY PRN Allergy 05/12/12 04/07/20 (BENADRYL) Symptoms ##0 metoprolol tartrate 50 mg tablet 50 mg PO BID ##0 05/12/12 04/07/20 tacrolimus 1 mg capsule, 0.5 mg PO BID ##0 05/12/12 04/07/20 immediate-release multivitamin 1 tab PO DAILY 03/19/18 04/07/20 Previous Rx's Medication Instructions Recorded ondansetron HCl 4 mg tablet 4 mg PO Q6H #7 tabs 04/05/20 (Zofran) promethazine 25 mg [address] Q4-6H PRN post op nausea 04/05/20 suppository #1 ea CMP Estriol Cream 0.2% See Rx Instructions .Route 08/02/20 .COMPLEX #30 grams vancomycin 125 mg capsule 125 mg PO DIRECTED #85 caps 05/28/22 ondansetron 4 mg disintegrating 4 mg PO Q6H PRN nausea and 05/29/22 tablet vomiting #14 tabs promethazine 12.5 mg rectal [address] Q4-6H PRN nausea and 05/29/22 suppository vomiting #12 ea estradiol 10 mcg vaginal tablet 10 mcg vaginal 3XW #36 tabs 02/17/23 hydromorphone 2 mg tablet 2 mg PO Q6H PRN pain #14 tabs 06/03/23 (Dilaudid) ondansetron 4 mg disintegrating 4 mg PO Q8H PRN nausea and 06/03/23 tablet vomiting #10 tabs Allergies Allergy/AdvReac Type Severity Reaction Status Date / Time fentanyl Allergy Severe nausea and Verified 06/03/23 08:00 vomiting Sulfa (Sulfonamide Allergy Unknown Nausea Verified 06/03/23 08:00 Antibiotics) codeine AdvReac Intermediate Nausea Verified 06/03/23 08:00 Patient History Medical History (Updated 06/03/23 @ 11:24 by Mirta Diaz DO) Post-menopausal bleeding Hypertension Primary biliary cholangitis Left fibular fracture (02/13/20) Immunosuppression due to drug therapy Flank pain Constipation Surgical History Status post D&C Liver transplant recipient Status post cholecystectomy Status post appendectomy Status post tonsillectomy and adenoidectomy History of third molar tooth extraction Family History Mother Dementia Father Alzheimer disease Social History household members: spouse Smoking Status: Never smoker Smoking Status: Never smoker alcohol intake frequency: holidays/special occasions only Substance Use Type: does not use Exam Initial Vital Signs Initial Vital Signs: Vital Signs Pulse Rate 75 06/03/23 07:52 Blood Pressure 128/59 L 06/03/23 07:52 Pulse Oximetry 93 06/03/23 07:52 GENERAL: Alert well-appearing 68-year-old female and in no acute distress. HEENT: Head atraumatic,EOMI, pupils reactive, face symmetric, moist mucous membrane CARDIOVASCULAR: Regular rate and rhythm without murmurs, rubs or gallops. RESPIRATORY: Breath sounds equal bilaterally, no wheezes rales or rhonchi. ABDOMEN: Soft, mild diffusely no guarding no rebound EXTREMITIES: Normal range of motion, no clubbing or edema. Neurovascularly intact NEUROLOGICAL: Alert and oriented x4.Normal gait and speech. SKIN: Warm, dry, no laceration, no petechiae, no rashes or lesions. Course Orders Ordered: ED Orders 06/03/23 08:04 EKG-12 Lead Stat 06/03/23 08:06 Complete Blood Count AUTO DIFF Stat Comprehensive Metabolic Panel Stat Lactate (Lactic Acid) Stat Lipase Stat Type and Screen Stat 06/03/23 09:04 CT angio Abd/Pel GI Bleed Stat Discontinued Medications Dexamethasone (Dexamethasone 10 Mg/Ml Vial) 10 mg IV NOW ONE Stop: 06/03/23 11:11 Last Admin: 06/03/23 11:17 Dose: 10 mg Documented By: RUIZ Hydromorphone HCl (Hydromorphone 0.5 Mg Inj) 0.5 mg IV NOW ONE Stop: 06/03/23 08:05 Last Admin: 06/03/23 08:14 Dose: 0.5 mg Documented By: RUIZ Hydromorphone HCl (Hydromorphone 1 Mg Inj) 1 mg IV NOW ONE Stop: 06/03/23 11:11 Last Admin: 06/03/23 11:17 Dose: 1 mg Documented By: RUIZ Sodium Chloride (Normal Saline 0.9%) 1,000 mls @ 1,000 mls/hr IV BOLUS ONE Stop: 06/03/23 09:47 Last Infusion: 06/03/23 10:18 Dose: Infused Documented By: Admin: 06/03/23 09:03 Dose: 1,000 mls/hr Documented By: RUIZ Ondansetron HCl (Ondansetron 4 Mg/2 Ml Inj) 4 mg IV NOW ONE Stop: 06/03/23 08:15 Last Admin: 06/03/23 08:16 Dose: 4 mg Documented By: RUIZ Ondansetron HCl (Ondansetron 4 Mg Odt) 4 mg SL NOW ONE Stop: 06/03/23 12:06 Last Admin: 06/03/23 12:08 Dose: 4 mg Documented By: RUIZ Vital Signs Vital signs: Vital Signs - 8 hr 06/03/23 07:52 06/03/23 07:52 06/03/23 07:56 Temperature 98.4 F Pulse Rate 75 73 Respiratory Rate 18 Blood Pressure 128/59 L 128/59 L Pulse Oximetry 93 97 Oxygen Delivery Method Room Air 06/03/23 08:00 06/03/23 08:01 06/03/23 08:01 Temperature Pulse Rate 76 74 Respiratory Rate 29 H 30 H Blood Pressure 129/70 Pulse Oximetry 99 99 Oxygen Delivery Method 06/03/23 08:30 06/03/23 08:30 06/03/23 09:00 Temperature Pulse Rate 72 79 Respiratory Rate 23 Blood Pressure 112/68 Pulse Oximetry 94 99 Oxygen Delivery Method 06/03/23 09:30 06/03/23 09:37 06/03/23 09:37 Temperature Pulse Rate 79 80 Respiratory Rate 11 L 16 Blood Pressure 115/63 Pulse Oximetry 95 95 Oxygen Delivery Method 06/03/23 10:00 06/03/23 10:00 06/03/23 10:30 Temperature Pulse Rate 80 71 Respiratory Rate 18 24 Blood Pressure 112/62 Pulse Oximetry 97 97 Oxygen Delivery Method 06/03/23 10:30 06/03/23 11:00 06/03/23 11:00 Temperature Pulse Rate 75 Respiratory Rate Blood Pressure 110/56 L 109/60 Pulse Oximetry 98 Oxygen Delivery Method 06/03/23 11:30 06/03/23 11:30 Temperature Pulse Rate 76 Respiratory Rate 24 Blood Pressure 112/57 L Pulse Oximetry 93 Oxygen Delivery Method MDM - Abdominal Pain Lab Data 06/03/23 08:06 06/03/23 08:06 Labs: Lab Results 06/03/23 Range/Units 08:06 WBC 3.5 L (4.5-11.0) X10^3/uL RBC 3.25 L (4.0-5.2) X10^6/uL Hgb 10.4 L (12.0-16.0) g/dL Hct 29.1 L (36-46) % MCV 89.6 (80-100) fL MCH 32.0 (26-34) PG MCHC 35.7 (30-36) % RDW 14.1 (11.6-14.8) % Plt Count 42 L (150-400) X10^3/uL Neut % (Auto) 79.1 H (50-75) % Lymph % (Auto) 7.1 L (25-40) % [place] % (Auto) 9.1 (3-14) % Eos % (Auto) 4.3 H (2-4) % Baso % (Auto) 0.4 (0-2) % Neut # (Auto) 2800 (2201-3980) /uL Lymph # (Auto) 200 L (4987-6061) /uL [place] # (Auto) 300 (0-900) /uL Eos # (Auto) 200 (0-450) /uL Baso # (Auto) 0 (0-100) /uL Sodium 138 (137-145) mmol/L Potassium 3.6 (3.4-5.1) mmol/L Chloride 111 H (98-107) mmol/L Carbon Dioxide 19 L (22-32) mmol/L BUN 19 H (7-17) mg/dL Creatinine 1.07 H (0.52-1.04) mg/dL Estimated GFR 57 L (>60) mL/min BUN/Creatinine Ratio 17.8 (6-22) Glucose 101 (80-110) mg/dL Lactate 0.9 (0.7-2.1) mmol/L Calcium 9.3 (8.4-10.2) mg/dL Total Bilirubin 1.4 H (0.2-1.3) mg/dL AST 33 (14-36) IU/L ALT 22 (<35) IU/L Alkaline Phosphatase 79 (38-126) U/L Total Protein 7.8 (6.3-8.2) g/dL Albumin 4.1 (3.5-5.0) g/dL Globulin 3.7 (1.7-4.1) g/dL Albumin/Globulin Ratio 1.1 (1.0-2.8) Lipase 75 (23-300) U/L Blood Type O Negative Antibody Screen Negative Point of care testing: Urine Dip Bedside Urine Glucose Negative Bedside Urine Bilirubin - Negative Bedside Urine Ketone - Negative Urine Specific [place] 1.015 Bedside Urine Occult Blood - Negative Bedside Urine pH 6.0 Bedside Urine Protein - Negative Bedside Urine Urobilinogen - Negative Bedside Urine Nitrite - Negative Bedside Urine Leukocytes - Negative Esterase Imaging Data CT scan - abdomen/pelvis: Radiologist's Impression: PROCEDURE: CT ANGIO ABD/PEL GI BLEED INDICATIONS: gi bleed with varices TECHNIQUE: After the administration of intravenous contrast, 2.5 mm thick sections acquired from the diaphragm to the symphysis. 10 mm maximum-intensity projection (MIP) reformats were then acquired. For radiation dose reduction, the following was used: automated exposure control. COMPARISON: None. FINDINGS: Image Quality: Diagnostic. Abdominal aorta: No aortic aneurysm or evidence of acute aortic syndrome. Mesenteric arteries: Patent without hemodynamically significant stenosis. Renal arteries: Patent without hemodynamically significant stenosis. Solid organs: Liver: The liver has no mass or intrahepatic biliary ductal dilatation. The liver is transplanted. The hepatic artery is patent. Biliary: Status post cholecystectomy. Pancreas: The pancreas has no mass or ductal dilatation. There is no surrounding inflammation. Spleen: The spleen is enlarged. Adrenals: No hypertrophy or nodules. Kidneys: No obstructive calculus or hydronephrosis. No solid mass. No cystic mass. Peritoneum and bowel: The distal esophagus and stomach are normal. The small bowel has a normal caliber and appearance. There is thickening of the distal sigmoid colon and rectum with surrounding inflammation consistent with proctitis. No free fluid or air. Nodes and vessels: No retroperitoneal or mesenteric adenopathy by size criteria. Pelvic veins are significantly dilated with the ovarian vein measuring up to 1.2 cm on the right and 1.1 cm on the left. Miscellaneous: No abdominal wall mass or hernia. PELVIS: Genitourinary: The bladder has no wall thickening or mass. No bladder calcifications. Bones: No suspicious bony lesions. No vertebral body compression fractures. IMPRESSION: 1. Thickening of the distal sigmoid colon and rectum consistent with colitis/proctitis. 2. No acute gastrointestinal bleeding. 3. Splenomegaly. 4. Pelvic congestion. Dictated by: Francisco Montes M.D. on 06/03/2023 at 9:10 ECG Data Interpretation: Sinus rhythm rate 70 CT interval 152 QRS [address] changes MDM Narrative Medical decision making narrative: Patient is 68-year-old female history of liver transplant of 18 years on anti-rejection medication, has recurrent episodes of C diff on vancomycin presenting today with bloody stool. She is having increasing abdominal pain. She is hemodynamically stable not on antiplatelet or anticoagulation medication. She has had to sounds like bloody mucus he episodes this morning and intense abdominal pain. Blood work reviewed WBC 3.5 she reports it previously was 1 7 platelets continues to be low at 42 hemoglobin 10.4 previously 10.4 and hematocrit 29.1 previously 32, creatinine stable 1.0 BUN [address]: Thickening of distal sigmoid colon and rectum consistent colitis and proctitis no active GI bleeding and pelvic congestion At this time she has colitis she is afebrile chronic leukocytosis chronic thrombocytopenia. She has recurrent history of C diff. We discussed antibiotics however this time we both agree both like to hold off unless absolutely necessary. Discussed trying steroids she does not do well on prednisone but is open to dexamethasone. She is dexamethasone more Dilaudid here in the ED. We discussed pain control at home she reports only thing that works for her at [facility]. Percocet and [place] she not do. Not a normal medication she is typically on an self recently. Patient vomited after Dilaudid, however it with the only 1 she tolerate it. She was given Zofran sublingual. Feeling better sent prescription for Zofran as well. Discharge Plan Departure Patient Disposition: Home Clinical Impression: Colitis Instructions: DI for Colitis Activity Restrictions/Additional Instructions: *You have been diagnosed with colitis *What to do: At this time expect to have some rectal bleeding. Hopefully the steroids help a little. Bleeding should slow down. We would like to hold off antibiotics for you at this time but you may ultimately need them. *Continue to take medications as directed Dilaudid 2 mg every 6 hours if needed for severe pain Tylenol 1000 mg every 6 hours if needed for [id number] pain *Follow up with your primary care provider in 2-3 days or call [phone] Please follow-up with [facility] *Return to ER if you should have increased rectal bleeding blood clots dizziness lightheadedness increasing pain fever or any new, worsening or concerning symptoms CONTROLLED SUBSTANCE DISCHARGE (Narcotoic/benzodiazepine/Flexeril/Phenergan) 1. You have been prescribed narcotic medications, it does have acetaminophen/Tylenol/paracetamol in it, DO NOT TAKE MORE THAN 4,00mg in 24 hours of Tylenol. TRAMADOL DOES NOT CONTAIN TYLENOL 2. Please understand that we cannot provide further refills of narcotics, benzodiazepines or controlled substances through the ED and her pain management will need to be through your provider. 3. While on these medications you cannot drive or operate heavy machinery. 4. You cannot sign legal documents or perform any duties such as this. 5. As long as you're taking opiate pain medications he should also be taking a stool softener such as Colace, Dulcolax, MiraLAX or prune juice, to help avoid constipation. Prescriptions: New hydromorphone [Dilaudid] 2 mg tablet 2 mg PO Q6H PRN (Reason: pain) Qty: 14 0RF ondansetron 4 mg tablet,disintegrating 4 mg PO Q8H PRN (Reason: nausea and vomiting) Qty: 10 0RF No Action tacrolimus 1 MG capsule 0.5 mg PO BID Qty: 0 Patient Comments: 0.5 mg BID metoprolol tartrate 50 MG tablet 50 mg PO BID Qty: 0 Diphenhydramine Hydrochloride (BENADRYL) 25 mg PO Q DAY PRN (Reason: Allergy Symptoms) Qty: 0 CMP Estriol Cream 0.2% See Rx Instructions .ROUTE .COMPLEX Qty: 30 3RF Rx Instructions: Apply Small amount to external genitalia 3x weekly estradiol 10 mcg tablet 10 mcg vaginal 3XW Qty: 36 0RF multivitamin Tablet 1 tab PO DAILY ondansetron 4 mg tablet,disintegrating 4 mg PO Q6H PRN (Reason: nausea and vomiting) Qty: 14 0RF promethazine 12.5 mg suppository 12.[address] Q4-6H PRN (Reason: nausea and vomiting) Qty: 12 0RF ondansetron HCl [Zofran] 4 mg tablet 4 mg PO Q6H Qty: 7 0RF promethazine 25 mg suppository [address] Q4-6H PRN (Reason: post op nausea) Qty: 1 0RF vancomycin 125 mg capsule 125 mg PO DIRECTED Qty: 85 0RF Rx Instructions: 1T PO QID for 14D then 1T PO BID for 7D then 1T PO QD for 7D then 1T PO every other day until gone Referrals: Sharon Darnell DO [Primary Care Provider] - Stand Alone Forms: Patient Portal/API
[2023-06-03] MEDS: SODIUM CHLORIDE 0.9% 1,000 ML 1000 ML IV (09:03)
--- NOTE | 2023-06-03 09:04 | DI.CT.S_ITS ---
PROCEDURE: CT ANGIO ABD/PEL GI BLEED INDICATIONS: gi bleed with varices TECHNIQUE: After the administration of intravenous contrast, 2.5 mm thick sections acquired from the diaphragm to the symphysis. 10 mm maximum-intensity projection (MIP) reformats were then acquired. For radiation dose reduction, the following was used: automated exposure control. COMPARISON: None. FINDINGS: Image Quality: Diagnostic. Abdominal aorta: No aortic aneurysm or evidence of acute aortic syndrome. Mesenteric arteries: Patent without hemodynamically significant stenosis. Renal arteries: Patent without hemodynamically significant stenosis. Solid organs: Liver: The liver has no mass or intrahepatic biliary ductal dilatation. The liver is transplanted. The hepatic artery is patent. Biliary: Status post cholecystectomy. Pancreas: The pancreas has no mass or ductal dilatation. There is no surrounding inflammation. Spleen: The spleen is enlarged. Adrenals: No hypertrophy or nodules. Kidneys: No obstructive calculus or hydronephrosis. No solid mass. No cystic mass. Peritoneum and bowel: The distal esophagus and stomach are normal. The small bowel has a normal caliber and appearance. There is thickening of the distal sigmoid colon and rectum with surrounding inflammation consistent with proctitis. No free fluid or air. Nodes and vessels: No retroperitoneal or mesenteric adenopathy by size criteria. Pelvic veins are significantly dilated with the ovarian vein measuring up to 1.2 cm on the right and 1.1 cm on the left. Miscellaneous: No abdominal wall mass or hernia. PELVIS: Genitourinary: The bladder has no wall thickening or mass. No bladder calcifications. Bones: No suspicious bony lesions. No vertebral body compression fractures. IMPRESSION: 1. Thickening of the distal sigmoid colon and rectum consistent with colitis/proctitis. 2. No acute gastrointestinal bleeding. 3. Splenomegaly. 4. Pelvic congestion. Dictated by: Francisco Montes M.D. on 06/03/2023 at 9:10 Approved by: Francisco Montes M.D. on 06/03/2023 at 9:22
[2023-06-03] MEDS: DEXAMETHASONE 10 MG/ML VIAL IV (11:17)
[2023-06-03] MEDS: HYDROMORPHONE 1 MG INJ IV (11:17)
[2023-06-03] MEDS: ONDANSETRON 4 MG ODT SL (12:08)
== END 2023-06-03 12:40 | disposition home or self-care (01) ==
PROVIDERS: Emergency Provider Emergency Medicine; PCP Family Medicine
DX: K52.9 Noninfective gastroenteritis and colitis, unspecified (principal); Z94.4 Liver transplant status
CPT/HCPCS: 36415; 74174; 80053; 81003; 83605; 83690; 85025; 86850; 86900; 86901; 93005; 96361; 96374; 96375; 96376; 99284; J1100; J1170; J2405

== ENCOUNTER 2023-08-11 12:51 | Emergency (ER) | payer MEDICARE, SELFPAY ==
[2020-04-07 04:24] VITALS: BMI 20.1
[2023-08-11] VITALS (14 sets, daily range): BP systolic 92–127; BP diastolic 52–66; PULSE 72–82; RESP 11–33; TEMP 37.1; O2SAT 92–99; BMI 18.3
[2023-08-11 13:38] LABS: Add Manual Diff / Slide Review NO; Basophils Absolute Auto 0 /uL (0-100); Basophils Percent Auto 0.6 % (0-2); Eosinophils Absolute Auto 100 /uL (0-450); Eosinophils Percent Auto 4.8 % (2-4); Hematocrit 28.2 % (36-46); Lymphocytes Absolute Auto 300 /uL (1100-4500); Lymphocytes Percent Auto 9.1 % (25-40); Mean Corpuscular HGB Conc 35.3 % (30-36); Mean Corpuscular Hemoglobin 32.7 PG (26-34); Mean Corpuscular Volume 92.9 fL (80-100); Monocytes Absolute Auto 400 /uL (0-900); Monocytes Percent Auto 13.2 % (3-14); Neutrophils Absolute Auto 2100 /uL (1500-7000); Neutrophils Percent Auto 72.3 % (50-75); Platelet Count 52 X10^3/uL (150-400); Red Blood Cell Count 3.04 X10^6/uL (4.0-5.2); Red Cell Distribution Width 14.9 % (11.6-14.8); White Blood Cell Count 2.9 X10^3/uL (4.5-11.0)
[2023-08-11 13:41] LABS: INR 1.8 (0.9-1.3); Prothrombin Time 20.3 SECONDS (9.4-12.5)
[2023-08-11] MEDS: ONDANSETRON 4 MG/2 ML INJ IV (13:43)
[2023-08-11] MEDS: PANTOPRAZOLE 40 MG VIAL 80 MG IV (13:43)
[2023-08-11 13:44] LABS: PTT Partial Thromboplastin Tim 39 SECONDS (25.1-36.5)
[2023-08-11 13:46] LABS: Lipase 36 U/L (23-300)
[2023-08-11 13:48] LABS: Alanine Aminotransferase 17 IU/L (<35); Albumin 3.5 g/dL (3.5-5.0); Albumin Globulin Ratio 1.1 (1.0-2.8); Alkaline Phosphatase 61 U/L (38-126); Aspartate Aminotransferase 25 IU/L (14-36); BUN Creatinine Ratio 12.5 (6-22); Bilirubin Total 1.3 mg/dL (0.2-1.3); Blood Urea Nitrogen 19 mg/dL (7-17); Calcium 8.6 mg/dL (8.4-10.2); Carbon Dioxide 21 mmol/L (22-32); Chloride 110 mmol/L (98-107); Estimated Glomerular Filt Rate 38 mL/min (>60); Globulin 3.3 g/dL (1.7-4.1); Glucose 126 mg/dL (80-110); HEMOLYSIS < 15 (0-50); Potassium 4.3 mmol/L (3.4-5.1); Sodium 137 mmol/L (137-145); Total Protein 6.8 g/dL (6.3-8.2)
--- NOTE | 2023-08-11 14:28 | ED.GIBLEED ---
HPI - GI Bleed General Chief complaint: GI Bleed Stated complaint: abd pain Time Seen by Provider: 08/11/23 14:27 Source: patient Mode of arrival: Wheelchair History of Present Illness HPI Narrative: 68-year-old female with history of GERD, liver transplant, GI bleed, anemia, syncope presents with concern for GI bleeding and abdominal pain. She states for months she has been having bright red blood per rectum with intermittent left-sided abdominal pain. This has worsened in the past week. She clarify she does not currently have C diff but is on vancomycin prophylactically for this. She also notes recent GI endoscopy and colonoscopy that she states did not find clear cause for symptoms. She shows me records from this, which show colonoscopy without clear findings and endoscopy showing esophageal varices that were not banded in the setting of no clear bleeding and thrombocytopenia. She denies chest pain, back or flank pain, shortness of breath, fevers or chills, lightheadedness or passing out, urinary symptoms. She states Dilaudid works best for her pain. She denies taking blood thinning medications. She confirms she is taking her tacrolimus. She denies black stool, stating her stool is red. Per chart review, she is history of biliary cholangitis with liver transplant nearly 2 decades ago on tacrolimus, as well as esophageal varices, chronic C diff on vancomycin, ITP with thrombocytopenia. There has also been concern for inflammatory bowel disease in the past. She had evidence of colitis/proctitis on CT in May with splenomegaly. She also had endoscopy in 2019 showing esophageal varices, esophagitis, without bleeding at that time. Related Data Home Medications Medication Instructions Recorded Confirmed Diphenhydramine Hydrochloride 25 mg PO Q DAY PRN Allergy 05/12/12 04/07/20 (BENADRYL) Symptoms ##0 metoprolol tartrate 50 mg tablet 50 mg PO BID ##0 05/12/12 04/07/20 tacrolimus 1 mg capsule, 0.5 mg PO BID ##0 05/12/12 04/07/20 immediate-release multivitamin 1 tab PO DAILY 03/19/18 04/07/20 Previous Rx's Medication Instructions Recorded ondansetron HCl 4 mg tablet 4 mg PO Q6H #7 tabs 04/05/20 (Zofran) promethazine 25 mg rectal 25 mg [place] Q4-6H PRN post op nausea 04/05/20 suppository #1 ea CMP Estriol Cream 0.2% See Rx Instructions .Route 08/02/20 .COMPLEX #30 grams vancomycin 125 mg capsule 125 mg PO DIRECTED #85 caps 05/28/22 ondansetron 4 mg disintegrating 4 mg PO Q6H PRN nausea and 05/29/22 tablet vomiting #14 tabs promethazine 12.5 mg rectal 12.5 mg [place] Q4-6H PRN nausea and 05/29/22 suppository vomiting #12 ea estradiol 10 mcg vaginal tablet 10 mcg vaginal 3XW #36 tabs 02/17/23 hydromorphone 2 mg tablet 2 mg PO Q6H PRN pain #14 tabs 06/03/23 (Dilaudid) ondansetron 4 mg disintegrating 4 mg PO Q8H PRN nausea and 06/03/23 tablet vomiting #10 tabs polyethylene glycol 3350 17 17 g PO DAILY #510 grams 08/11/23 gram/dose oral powder (Miralax) Allergies Allergy/AdvReac Type Severity Reaction Status Date / Time fentanyl Allergy Severe nausea and Verified 06/03/23 08:00 vomiting Sulfa (Sulfonamide Allergy Unknown Nausea Verified 06/03/23 08:00 Antibiotics) hydrocodone Allergy Vomiting Verified 08/11/23 12:54 oxycodone Allergy Vomiting Verified 08/11/23 12:54 codeine AdvReac Intermediate Nausea Verified 06/03/23 08:00 Review of Systems Review of Systems Narrative: Constitutional: no fever, no chills Eyes: no visual disturbance, no discharge Ears, Nose, Mouth, Throat: no rhinorrhea, no sore throat Cardiovascular: no chest pain, no palpitations Respiratory: no cough, no shortness of breath Gastrointestinal: + abdominal pain, no vomiting, no diarrhea Genitourinary: no dysuria, no hematuria Musculoskeletal: no back pain, no neck stiffness Skin: no rash, no wound Neurological: no focal weakness, no focal numbness Patient History Medical History (Updated 08/11/23 @ 18:13 by Ruddy Pike MD) Post-menopausal bleeding Hypertension Primary biliary cholangitis Left fibular fracture (02/13/20) Immunosuppression due to drug therapy Flank pain Constipation Surgical History Status post D&C Liver transplant recipient Status post cholecystectomy Status post appendectomy Status post tonsillectomy and adenoidectomy History of third molar tooth extraction Family History Mother Dementia Father Alzheimer disease Social History household members: spouse Smoking Status: Never smoker Smoking Status: Never smoker alcohol intake frequency: holidays/special occasions only Substance Use Type: does not use Exam Narrative Exam Narrative: Const: no acute distress, non toxic though chronically ill appearing; calm, conversant, pleasant Eyes: PERRLA, EOMI ENT: mucous membranes moist Neck: supple, non-tender Resp: no respiratory distress, clear to auscultation bilaterally Card: regular rate and rhythm, no murmurs Abd: Left-sided tenderness without focality, no right-sided or right upper quadrant tenderness; no rigidity or rebound or guarding Back: no T or L spine tenderness, no CVA tenderness bilaterally Extrem: no deformities, no swelling bilateral lower extremities Neuro: ANOx4, [employer] grossly intact, grossly intact sensation and strength all extremities Skin: no rash, warm and dry Initial Vital Signs Initial Vital Signs: Vital Signs Temperature 98.8 F 08/11/23 12:54 Pulse Rate 73 08/11/23 12:54 Respiratory Rate 18 08/11/23 12:54 Blood Pressure 92/52 L 08/11/23 12:54 Pulse Oximetry 99 08/11/23 12:54 Oxygen Delivery Method Room Air 08/11/23 12:54 Course Course Course Narrative: This patient presents to the ER with what appears to be chronic abdominal pain and hematochezia with recent GI workup as described, not on blood thinners, currently afebrile and well-perfused. However, her abdominal pain and bleeding is worsening. Etiology unclear at this time, particularly in setting of recent extensive GI evaluation. IBD does remain possible, though I have considered a broad differential including but not limited to C diff, other bacterial enteritis, ischemic colitis, AVM, tumor, symptomatic anemia, upper GI bleed, volvulus, bowel obstruction, among others. Note no current rapid bleeding. She appears well-perfused hemodynamically stable. I am obtaining broad workup with labs, UA, CT. I am giving fluids, Zofran, Dilaudid and will closely reassess. I anticipate GI consult after gathering workup. I am also ordering stool studies. Per chart review, colonoscopy resolved showed mild friability in the colon. In addition, endoscopy showed nonbleeding grade 2 esophageal varices, not banded, along with mild portal hypertensive gastropathy, normal duodenum. Labs show leukopenia to 2.9, anemia of 10, similar to prior, with thrombocytopenia to 52 similar to prior. INR elevated to 1.8. PTT mildly elevated. Chemistry with possible STEFANI, with creatinine 1.52, previous in May at 1.07. No LFT elevation. No bilirubin elevation. Lipase reassuring. Type and screen also sent. Urine without blood, clear infection. Radiology review of imaging below, which I agree with on my independent review: CT: FINDINGS: Image Quality: Diagnostic. Abdominal aorta: No aortic aneurysm or evidence of acute aortic syndrome. Mesenteric arteries: Patent without hemodynamically significant stenosis. Renal arteries: Patent without hemodynamically significant stenosis. OTHER: Lower Chest: No significant findings. Liver: Stable liver transplant. Patent tip attic artery. No solid mass. Gallbladder: Gallbladder is surgically absent. Biliary ducts: No biliary dilation. Pancreas: No ductal dilation. Spleen: Spleen is enlarged. Adrenal Glands: No adrenal nodules. Kidneys and Ureters: No hydronephrosis. No solid mass. No complex renal cystic lesion which requires follow up. Stomach and Bowel: Circumferential wall thickening involving the left colon, sigmoid colon and rectum. Peritoneum: Small volume of low-density free fluid in the lower pelvis. No free air. Ventral Wall: No hernia. Abdominal Nodes: No retroperitoneal or mesenteric adenopathy by size criteria. Vessels: Aorta and inferior vena cava are normal in size. Stable venous varices. PELVIS: Pelvic Organs: Prominent bilateral periuterine veins and gonadal veins compatible with pelvic congestion. Bladder: Unremarkable. Pelvic Nodes: No enlarged lymph nodes. Miscellaneous: No inguinal hernias are seen. Bones: No aggressive osseous abnormality. Spine degenerative disc disease and facet arthropathy. IMPRESSION: No active bleed identified. Nonspecific proctocolitis involving the left colon, sigmoid colon and rectum. Small volume of low-density free fluid in the lower pelvis. Stable splenomegaly. Stable venous varices and pelvic congestion. Dictated by: Ana Culver MD, PhD on 08/11/2023 at 15:44 We are awaiting stool sample. I am requesting GI consult from . I spoke with transfer center at 4:19PM; they will call back with GI. At 5:15PM, I spoke with Dr. Walker of GI who reviewed case with me. Per our discussion, if lactate reassuring, he recommends discharge with GI follow up and return precautions. Adding Miralax for constipation could also be helpful. If lactate elevated, we should consult them again. Though etiology for potential colitis is not yet clear, risk assessment consultant does feel patient is stable and safe for discharge with close follow-up. Lactate reassuring. Patient feeling well here. Lack of stooling recently here would argue against symptomatic C diff infection. However, I did recommend she pursue outpatient stool studies as soon as possible, and she agrees to this. Note her blood pressure substantially improved, and we also obtained orthostatics that were reassuring, with patient ambulating without difficulty. I am aware of low BP measurements, however I see prior ER note in May with similar numbers, and she appears well perfused, with reassuring lactate, reassuring repeat VS, and she is comfortable monitoring symptoms at home with strict return precautions. We reviewed her workup. They fully understand further work up outpatient is needed. Friability of colon noted on recent endoscopy is of unclear etiology but could be contributory. No rapid bleeding or melena here. She does appear stable for discharge, though close follow up will be important for her. Her pain appears controlled, and she is tolerating p.o.. I am prescribing MiraLax. Family at bedside. Repeat exam and vital signs reassuring. Questions answered. Plan reviewed. Patient discharged in stable condition. Orders Ordered: ED Orders 08/11/23 13:20 Complete Blood Count AUTO DIFF Stat Comprehensive Metabolic Panel Stat Lipase Stat PTT Partial Thromboplastin Zack Stat Prothrombin Time INR Stat Type and Screen Stat 08/11/23 13:25 EKG-12 Lead Stat 08/11/23 14:47 CT angio Abd/Pel GI Bleed Stat 08/11/23 15:53 Clostridium Difficile Tox PCR Stat 08/11/23 17:26 Lactate (Lactic Acid) Stat Discontinued Medications Hydromorphone HCl (Hydromorphone 0.5 Mg Inj) 0.5 mg IV NOW ONE Stop: 08/11/23 14:49 Last Admin: 08/11/23 15:07 Dose: 0.5 mg Documented By: SHARYN Sodium Chloride (Normal Saline 0.9%) 1,000 mls @ 1,000 mls/hr IV BOLUS ONE Stop: 08/11/23 15:47 Last Infusion: 08/11/23 16:04 Dose: Infused Documented By: Admin: 08/11/23 15:05 Dose: 1,000 mls/hr Documented By: SHARYN Sodium Chloride (Normal Saline 0.9%) 1,000 mls @ 125 mls/hr IV CONT JUAN Last Infusion: 08/11/23 19:00 Dose: Infused Documented By: Admin: 08/11/23 16:15 Dose: 125 mls/hr Documented By: SHARYN Ondansetron HCl (Ondansetron 4 Mg/2 Ml Inj) 4 mg IV NOW PRN PRN Reason: Nausea And Vomiting Last Admin: 08/11/23 13:43 Dose: 4 mg Documented By: SHARYN Ondansetron HCl (Ondansetron 4 Mg Odt) 4 mg SL NOW PRN PRN Reason: Nausea And Vomiting Pantoprazole Sodium (Pantoprazole 40 Mg Vial) 80 mg IV NOW ONE Stop: 08/11/23 13:01 Last Admin: 08/11/23 13:43 Dose: 80 mg Documented By: SHARYN Vital Signs Vital signs: Vital Signs - 8 hr 08/11/23 12:54 08/11/23 13:47 08/11/23 14:00 Temperature 98.8 F Pulse Rate 73 72 73 Pulse Rate [Orthostatic Lying] Pulse Rate [Orthostatic Sitting] Pulse Rate [Orthostatic Standing] Respiratory Rate 18 28 H Blood Pressure 92/52 L Blood Pressure [Orthostatic Lying] Blood Pressure [Orthostatic Sitting] Blood Pressure [Orthostatic Standing] Pulse Oximetry 99 97 98 Oxygen Delivery Method Room Air 08/11/23 14:29 08/11/23 14:29 08/11/23 14:30 Temperature Pulse Rate 77 79 Pulse Rate [Orthostatic Lying] Pulse Rate [Orthostatic Sitting] Pulse Rate [Orthostatic Standing] Respiratory Rate 33 H 30 H Blood Pressure 118/62 Blood Pressure [Orthostatic Lying] Blood Pressure [Orthostatic Sitting] Blood Pressure [Orthostatic Standing] Pulse Oximetry 98 97 Oxygen Delivery Method 08/11/23 14:30 08/11/23 15:08 08/11/23 15:18 Temperature Pulse Rate 82 81 Pulse Rate [Orthostatic Lying] Pulse Rate [Orthostatic Sitting] Pulse Rate [Orthostatic Standing] Respiratory Rate 26 H Blood Pressure 107/66 Blood Pressure [Orthostatic Lying] Blood Pressure [Orthostatic Sitting] Blood Pressure [Orthostatic Standing] Pulse Oximetry 92 99 Oxygen Delivery Method 08/11/23 15:18 08/11/23 15:30 08/11/23 15:46 Temperature Pulse Rate 80 79 Pulse Rate [Orthostatic Lying] Pulse Rate [Orthostatic Sitting] Pulse Rate [Orthostatic Standing] Respiratory Rate 27 H Blood Pressure 122/63 Blood Pressure [Orthostatic Lying] Blood Pressure [Orthostatic Sitting] Blood Pressure [Orthostatic Standing] Pulse Oximetry 95 99 Oxygen Delivery Method 08/11/23 15:46 08/11/23 16:00 08/11/23 16:00 Temperature Pulse Rate 77 Pulse Rate [Orthostatic Lying] Pulse Rate [Orthostatic Sitting] Pulse Rate [Orthostatic Standing] Respiratory Rate 15 Blood Pressure 104/59 L 100/59 L Blood Pressure [Orthostatic Lying] Blood Pressure [Orthostatic Sitting] Blood Pressure [Orthostatic Standing] Pulse Oximetry 98 Oxygen Delivery Method 08/11/23 16:30 08/11/23 16:30 08/11/23 17:00 Temperature Pulse Rate 74 Pulse Rate [Orthostatic Lying] Pulse Rate [Orthostatic Sitting] Pulse Rate [Orthostatic Standing] Respiratory Rate 11 L Blood Pressure 97/52 L 100/56 L Blood Pressure [Orthostatic Lying] Blood Pressure [Orthostatic Sitting] Blood Pressure [Orthostatic Standing] Pulse Oximetry 97 Oxygen Delivery Method 08/11/23 17:00 08/11/23 17:30 08/11/23 17:30 Temperature Pulse Rate 74 74 Pulse Rate [Orthostatic Lying] Pulse Rate [Orthostatic Sitting] Pulse Rate [Orthostatic Standing] Respiratory Rate 12 20 Blood Pressure 114/59 L Blood Pressure [Orthostatic Lying] Blood Pressure [Orthostatic Sitting] Blood Pressure [Orthostatic Standing] Pulse Oximetry 96 98 Oxygen Delivery Method 08/11/23 18:33 Temperature Pulse Rate Pulse Rate [Orthostatic Lying] 78 Pulse Rate [Orthostatic Sitting] 78 Pulse Rate [Orthostatic Standing] 75 Respiratory Rate Blood Pressure Blood Pressure [Orthostatic Lying] 127/57 L Blood Pressure [Orthostatic Sitting] 126/59 L Blood Pressure [Orthostatic Standing] 111/57 L Pulse Oximetry Oxygen Delivery Method MDM - GI Bleed Lab Data 08/11/23 13:20 08/11/23 13:20 Labs: Lab Results 08/11/23 08/11/23 Range/Units 13:20 17:26 WBC 2.9 L (4.5-11.0) X10^3/uL RBC 3.04 L (4.0-5.2) X10^6/uL Hgb 10.0 L (12.0-16.0) g/dL Hct 28.2 L (36-46) % MCV 92.9 (80-100) fL MCH 32.7 (26-34) PG MCHC 35.3 (30-36) % RDW 14.9 H (11.6-14.8) % Plt Count 52 L (150-400) X10^3/uL Neut % (Auto) 72.3 (50-75) % Lymph % (Auto) 9.1 L (25-40) % Cecil % (Auto) 13.2 (3-14) % Eos % (Auto) 4.8 H (2-4) % Baso % (Auto) 0.6 (0-2) % Neut # (Auto) 2100 (7413-6720) /uL Lymph # (Auto) 300 L (7745-6973) /uL Cecil # (Auto) 400 (0-900) /uL Eos # (Auto) 100 (0-450) /uL Baso # (Auto) 0 (0-100) /uL PT 20.3 H (9.4-12.5) SECONDS INR 1.8 H (0.9-1.3) APTT 39 H (25.1-36.5) SECONDS Sodium 137 (137-145) mmol/L Potassium 4.3 (3.4-5.1) mmol/L Chloride 110 H (98-107) mmol/L Carbon Dioxide 21 L (22-32) mmol/L BUN 19 H (7-17) mg/dL Creatinine 1.52 H (0.52-1.04) mg/dL Estimated GFR 38 L (>60) mL/min BUN/Creatinine Ratio 12.5 (6-22) Glucose 126 H (80-110) mg/dL Lactate 0.8 (0.7-2.1) mmol/L Calcium 8.6 (8.4-10.2) mg/dL Total Bilirubin 1.3 (0.2-1.3) mg/dL AST 25 (14-36) IU/L ALT 17 (<35) IU/L Alkaline Phosphatase 61 (38-126) U/L Total Protein 6.8 (6.3-8.2) g/dL Albumin 3.5 (3.5-5.0) g/dL Globulin 3.3 (1.7-4.1) g/dL Albumin/Globulin Ratio 1.1 (1.0-2.8) Lipase 36 (23-300) U/L Blood Type O Negative Antibody Screen Negative Urine Dip Bedside Urine Glucose Negative Bedside Urine Bilirubin - Negative Bedside Urine Ketone - Negative Urine Specific [place] 1.025 Bedside Urine Occult Blood - Negative Bedside Urine pH 5.5 Bedside Urine Protein +/- 15 Bedside Urine Urobilinogen - Negative Bedside Urine Nitrite - Negative Bedside Urine Leukocytes +/- 15 Esterase Discharge Plan Departure Patient Disposition: Home Clinical Impression: Abdominal pain Instructions: DI for Abdominal Pain-Adult Activity Restrictions/Additional Instructions: It was a pleasure taking care of you today. It is important to fully read and understand the below. Please ask us if you have any questions. We think the most likely cause of your symptoms is colitis. However, you did have a recent assessment by GI without clear cause. In this setting, I spoke with your GI team and we agree you need close repeat assessment by them. In addition, You have low red blood cells, white blood cells, and platelets. You have a kidney injury. You also have constipation. Please try MiraLax to see if this helps. Please see your gastroenterology team soon. I spoke with them, and they agreed you need close follow up. Please call them in the next day and see a doctor within 3-5 days for reassessment. No tests or assessments are perfect, and your condition could change control analyst time. If your symptoms change or worsen, it is very important you immediately seek medical care. If you have any new or worsening pain, worsening bleeding, black in your stool, lightheadedness or passing out, shortness of breath, fever, vomiting, confusion, numbness, weakness, or anything else that concerns you, please immediately seek medical care. If you have been prescribed any medications: please read the drug package inserts on how to properly use the medication and any potential side effects. If you had labs (blood tests) or imaging (CT scan or x-rays) done during your visit: please follow up on the results of these with your primary care doctor, as discussed. In addition, please know the results we received today may be preliminary. Our usual practice is to follow up on tests within a few days of a patient's discharge from the Emergency Department and notify you of any changes. These may lead to changes to your treatment plan. However, the best way to obtain and interpret these test results is through your Primary Care Provider. If you need to update your contact information, please stop by the service desk lead and alert the Registration personnel before you leave the Emergency Department. Thank you for the opportunity to participate in your healthcare. We are always here and happy to see you in the future. --- PLEASE TAKE THE ATTACHED IMAGING TO YOUR DOCTORS: CT: FINDINGS: Image Quality: Diagnostic. Abdominal aorta: No aortic aneurysm or evidence of acute aortic syndrome. Mesenteric arteries: Patent without hemodynamically significant stenosis. Renal arteries: Patent without hemodynamically significant stenosis. OTHER: Lower Chest: No significant findings. Liver: Stable liver transplant. Patent tip attic artery. No solid mass. Gallbladder: Gallbladder is surgically absent. Biliary ducts: No biliary dilation. Pancreas: No ductal dilation. Spleen: Spleen is enlarged. Adrenal Glands: No adrenal nodules. Kidneys and Ureters: No hydronephrosis. No solid mass. No complex renal cystic lesion which requires follow up. Stomach and Bowel: Circumferential wall thickening involving the left colon, sigmoid colon and rectum. Peritoneum: Small volume of low-density free fluid in the lower pelvis. No free air. Ventral Wall: No hernia. Abdominal Nodes: No retroperitoneal or mesenteric adenopathy by size criteria. Vessels: Aorta and inferior vena cava are normal in size. Stable venous varices. PELVIS: Pelvic Organs: Prominent bilateral periuterine veins and gonadal veins compatible with pelvic congestion. Bladder: Unremarkable. Pelvic Nodes: No enlarged lymph nodes. Miscellaneous: No inguinal hernias are seen. Bones: No aggressive osseous abnormality. Spine degenerative disc disease and facet arthropathy. IMPRESSION: No active bleed identified. Nonspecific proctocolitis involving the left colon, sigmoid colon and rectum. Small volume of low-density free fluid in the lower pelvis. Stable splenomegaly. Stable venous varices and pelvic congestion. Dictated by: Ana Culver MD, PhD on 08/11/2023 at 15:44 Prescriptions: New polyethylene glycol 3350 [Miralax] 17 gram/dose powder 17 g PO DAILY Qty: 510 0RF No Action tacrolimus 1 MG capsule 0.5 mg PO BID Qty: 0 Patient Comments: 0.5 mg BID metoprolol tartrate 50 MG tablet 50 mg PO BID Qty: 0 Diphenhydramine Hydrochloride (BENADRYL) 25 mg PO Q DAY PRN (Reason: Allergy Symptoms) Qty: 0 CMP Estriol Cream 0.2% See Rx Instructions .ROUTE .COMPLEX Qty: 30 3RF Rx Instructions: Apply Small amount to external genitalia 3x weekly estradiol 10 mcg tablet 10 mcg vaginal 3XW Qty: 36 0RF multivitamin Tablet 1 tab PO DAILY ondansetron 4 mg tablet,disintegrating 4 mg PO Q6H PRN (Reason: nausea and vomiting) Qty: 14 0RF promethazine 12.5 mg suppository 12.5 mg [place] Q4-6H PRN (Reason: nausea and vomiting) Qty: 12 0RF ondansetron HCl [Zofran] 4 mg tablet 4 mg PO Q6H Qty: 7 0RF promethazine 25 mg suppository 25 mg KY Q4-6H PRN (Reason: post op nausea) Qty: 1 0RF vancomycin 125 mg capsule 125 mg PO DIRECTED Qty: 85 0RF Rx Instructions: 1T PO QID for 14D then 1T PO BID for 7D then 1T PO QD for 7D then 1T PO every other day until gone hydromorphone [Dilaudid] 2 mg tablet 2 mg PO Q6H PRN (Reason: pain) Qty: 14 0RF ondansetron 4 mg tablet,disintegrating 4 mg PO Q8H PRN (Reason: nausea and vomiting) Qty: 10 0RF Referrals: Herberth Aldrich MD [Primary Care Provider] - Stand Alone Forms: Patient Portal/API
--- NOTE | 2023-08-11 14:47 | DI.CT.S_ITS ---
PROCEDURE: CT ANGIO ABD/PEL GI BLEED INDICATIONS: GI bleed, abdominal pain, history Cdiff, recent GI proc TECHNIQUE: After the administration of intravenous contrast, 2.5 mm thick sections acquired from the diaphragm to the symphysis. 10 mm maximum-intensity projection (MIP) reformats were then acquired. For radiation dose reduction, the following was used: automated exposure control. COMPARISON: [facility], CT, CT ABDOMEN PELVIS W CON, 05/27/2022, 20:44. [facility], CT, CT ANGIO ABD/PEL GI BLEED, 06/03/2023, 8:50. FINDINGS: Image Quality: Diagnostic. Abdominal aorta: No aortic aneurysm or evidence of acute aortic syndrome. Mesenteric arteries: Patent without hemodynamically significant stenosis. Renal arteries: Patent without hemodynamically significant stenosis. OTHER: Lower Chest: No significant findings. Liver: Stable liver transplant. Patent tip attic artery. No solid mass. Gallbladder: Gallbladder is surgically absent. Biliary ducts: No biliary dilation. Pancreas: No ductal dilation. Spleen: Spleen is enlarged. Adrenal Glands: No adrenal nodules. Kidneys and Ureters: No hydronephrosis. No solid mass. No complex renal cystic lesion which requires follow up. Stomach and Bowel: Circumferential wall thickening involving the left colon, sigmoid colon and rectum. Peritoneum: Small volume of low-density free fluid in the lower pelvis. No free air. Ventral Wall: No hernia. Abdominal Nodes: No retroperitoneal or mesenteric adenopathy by size criteria. Vessels: Aorta and inferior vena cava are normal in size. Stable venous varices. PELVIS: Pelvic Organs: Prominent bilateral periuterine veins and gonadal veins compatible with pelvic congestion. Bladder: Unremarkable. Pelvic Nodes: No enlarged lymph nodes. Miscellaneous: No inguinal hernias are seen. Bones: No aggressive osseous abnormality. Spine degenerative disc disease and facet arthropathy. IMPRESSION: No active bleed identified. Nonspecific proctocolitis involving the left colon, sigmoid colon and rectum. Small volume of low-density free fluid in the lower pelvis. Stable splenomegaly. Stable venous varices and pelvic congestion. Dictated by: Ana Culver MD, PhD on 08/11/2023 at 15:44 Approved by: Ana Culver MD, PhD on 08/11/2023 at 15:54
[2023-08-11] MEDS: SODIUM CHLORIDE 0.9% 1,000 ML 1000 ML IV (15:05)
[2023-08-11] MEDS: HYDROMORPHONE 0.5 MG INJ IV (15:07)
[2023-08-11] MEDS: SODIUM CHLORIDE 0.9% 1,000 ML 125 ML IV (16:15)
[2023-08-11 18:01] LABS: Lactate (Lactic Acid) 0.8 mmol/L (0.7-2.1)
== END 2023-08-11 18:59 | disposition home or self-care (01) ==
PROVIDERS: Emergency Provider Emergency Medicine; PCP Family Medicine
DX: R10.9 Unspecified abdominal pain (principal)
CPT/HCPCS: 36415; 74174; 80053; 81003; 83605; 83690; 85025; 85610; 85730; 86850; 86900; 86901; 93005; 93010; 96361; 96374; 96375; 99284; C9113; J1170; J2405; Q9967

== ENCOUNTER 2024-12-13 18:50 | Emergency (ER) | payer MEDICARE, SELFPAY ==
[2020-04-07 04:24] VITALS: BMI 20.1
[2024-12-13] VITALS (7 sets, daily range): BP systolic 117–145; BP diastolic 62–83; PULSE 80–83; RESP 14–22; TEMP 37.1; O2SAT 97–99; BMI 19.0
--- NOTE | 2024-12-13 19:15 | DI.RAD.S_ITS ---
PROCEDURE: XR CHEST 1V INDICATIONS: suspected sepsis TECHNIQUE: One view of the chest was acquired. COMPARISON: [facility], , CHEST 1 VIEW, 05/06/2016, 11:55. FINDINGS: Surgical changes and devices: None. Lungs and pleura: Lungs are clear. No pleural effusions or pneumothorax. Mediastinum: Mediastinal contours appear normal. Heart size is normal. Bones and chest wall: No suspicious bony lesions. Overlying soft tissues appear unremarkable. IMPRESSION: No acute pulmonary process. Dictated by: Maria De Jesus Rivas M.D. on 12/13/2024 at 20:13 Approved by: Maria De Jesus Rivas M.D. on 12/13/2024 at 20:14
[2024-12-13 20:13] LABS: INR 1.7 (0.9-1.3); Prothrombin Time 19.4 SECONDS (9.4-12.5)
[2024-12-13 20:16] LABS: PTT Partial Thromboplastin Tim 36 SECONDS (25.1-36.5)
[2024-12-13 20:17] LABS: Alanine Aminotransferase 24 IU/L (<35); Albumin 4.0 g/dL (3.5-5.0); Albumin Globulin Ratio 1.2 (1.0-2.8); Alkaline Phosphatase 74 U/L (38-126); Blood Urea Nitrogen 18 mg/dL (7-17); Calcium 9.0 mg/dL (8.4-10.2); Carbon Dioxide 21 mmol/L (22-32); Chloride 109 mmol/L (98-107); Estimated Glomerular Filt Rate 50 mL/min (>60); Globulin 3.4 g/dL (1.7-4.1); Glucose 106 mg/dL (70-99); HEMOLYSIS < 15 (0-50); Lipase 88 U/L (23-300); Potassium 3.9 mmol/L (3.4-5.1); Sodium 139 mmol/L (137-145); Total Protein 7.4 g/dL (6.3-8.2)
[2024-12-13 20:18] LABS: Lactate (Lactic Acid) 1.2 mmol/L (0.7-2.1)
[2024-12-13 20:20] LABS: Add Manual Diff / Slide Review NO; Hematocrit 27.9 % (36-46); Hemoglobin 10.0 g/dL (12.0-16.0); Lymphocytes Absolute Auto 100 /uL (1100-4500); Mean Corpuscular HGB Conc 35.6 % (30-36); Mean Corpuscular Hemoglobin 32.4 PG (26-34); Mean Corpuscular Volume 90.8 fL (80-100)
[2024-12-13 20:24] LABS: Platelet Count 34 X10^3/uL (150-400)
[2024-12-13 20:35] LABS: Procalcitonin 0.058 ng/mL (<0.5)
[2024-12-13 20:38] LABS: RBC Morphology Normal Morphology
[2024-12-13] MEDS: SODIUM CHLORIDE 0.9% 1,000 ML 1000 ML IV ×2 (21:35→22:51)
--- NOTE | 2024-12-13 22:15 | ED.FEVER ---
HPI - Fever General Chief Complaint: Fever Stated Complaint: Upper endo 12/12 now with fever Time Seen by Provider: 12/13/24 22:15 Source: patient Mode of arrival: Ambulatory History of Present Illness HPI Narrative: Patient is a 69-year-old female with a past medical history of liver transplant (2007 at [facility] for primary sclerosing cholangitis), GERD, presenting to the emergency department from home for evaluation of fever, to note patient states that she just had an EGD at [facility] yesterday on 12/12/2024, states that she does have a history of pancytopenia, patient was instructed to come into the ED due to the fever. Patient has been compliant with her tacrolimus, not on any blood thinners. Patient did state that her EGD showed everything was normal must states that she got this because she has a history of portal hypertension with upper GI bleed. She denies any symptoms at this time Related Data Home Medications ?Medication ?Instructions ?Recorded ?Confirmed Diphenhydramine Hydrochloride 25 mg PO Q DAY PRN Allergy 05/12/12 04/07/20 (BENADRYL) Symptoms ##0 metoprolol tartrate 50 mg tablet 50 mg PO BID ##0 05/12/12 04/07/20 tacrolimus 1 mg capsule, 0.5 mg PO BID ##0 05/12/12 04/07/20 immediate-release multivitamin 1 tab PO DAILY 03/19/18 04/07/20 Previous Rx's ?Medication ?Instructions ?Recorded ondansetron HCl 4 mg tablet 4 mg PO Q6H #7 tabs 04/05/20 (Zofran) promethazine 25 mg rectal 25 mg IL Q4-6H PRN post op nausea 04/05/20 suppository #1 ea CMP Estriol Cream 0.2% See Rx Instructions .Route 08/02/20 .COMPLEX #30 grams vancomycin 125 mg capsule 125 mg PO DIRECTED #85 caps 05/28/22 ondansetron 4 mg disintegrating 4 mg PO Q6H PRN nausea and 05/29/22 tablet vomiting #14 tabs promethazine 12.5 mg rectal 12.5 mg IL Q4-6H PRN nausea and 05/29/22 suppository vomiting #12 ea estradiol 10 mcg vaginal tablet 10 mcg vaginal 3XW #36 tabs 02/17/23 hydromorphone 2 mg tablet 2 mg PO Q6H PRN pain #14 tabs 06/03/23 (Dilaudid) ondansetron 4 mg disintegrating 4 mg PO Q8H PRN nausea and 06/03/23 tablet vomiting #10 tabs polyethylene glycol 3350 17 17 g PO DAILY #510 grams 08/11/23 gram/dose oral powder (Miralax) Allergies Allergy/AdvReac Type Severity Reaction Status Date / Time fentanyl Allergy Severe nausea and Verified 06/03/23 08:00 vomiting Sulfa (Sulfonamide Allergy Unknown Nausea Verified 06/03/23 08:00 Antibiotics) hydrocodone Allergy Vomiting Verified 08/11/23 12:54 oxycodone Allergy Vomiting Verified 08/11/23 12:54 codeine AdvReac Intermediate Nausea Verified 06/03/23 08:00 Review of Systems Review of Systems Narrative: General: Positive fever, denies chills, weight loss HEENT: Denies headache, eye drainage, eye irritation, head trauma, sore throat, voice change Cardiovascular: Denies any chest pain, palpitations, tachycardia Respiratory: Denies any shortness of breath, cough, wheeze, stridor GI/: Denies any abdominal pain, nausea, vomiting, diarrhea, bright red blood per rectum, melanotic stools, urinary frequency, urinary retention, dysuria, hematuria MSK: Denies any joint pain, muscle pains, swelling Skin: Denies any rashes, lesions, discoloration Neuro: Denies any headache, lightheadedness, dizziness, fainting, weakness Psych: Denies SI/HI Patient History Medical History (Updated 12/14/24 @ 00:13 by Herberth Lopez DO) Post-menopausal bleeding Hypertension Primary biliary cholangitis Left fibular fracture (02/13/20) Immunosuppression due to drug therapy Flank pain Constipation Surgical History Status post D&C Liver transplant recipient Status post cholecystectomy Status post appendectomy Status post tonsillectomy and adenoidectomy History of third molar tooth extraction Family History Mother Dementia Father Alzheimer disease Social History household members: spouse Smoking Status: Never smoker Smoking Status: Never smoker alcohol intake frequency: holidays/special occasions only Exam Narrative Exam Narrative: General: Cooperative, well-developed, not in acute distress HEENT: Normocephalic, atraumatic, PERRLA, normal sclera, eyelids normal Neck: Active full range of motion, atraumatic Chest: Normal to inspection, negative crepitus, no overlying erythema ecchymosis Respiratory: Normal respiratory effort, not in acute respiratory distress, clear to auscultation bilaterally negative cough, wheeze, tachypnea, rhonchi, rales Cardiology: Regular rate rhythm negative gallop, murmur, rubs GI/: No tenderness to palpation, soft, non rigid, normal to inspection, exam deferred MSK: Full active range of motion in all 4 extremities, atraumatic, no tenderness to palpation of any bony prominences Skin: No rashes or lesions noted Neuro: Alert awake oriented x3, moves all 4 extremities spontaneously, cranial nerves intact, able to answer all questions appropriately follows commands appropriately Psych: Cooperative, negative suicidal or homicidal ideations Initial Vital Signs Initial Vital Signs: Vital Signs Temperature 98.8 F 12/13/24 19:01 Pulse Rate 80 12/13/24 19:01 Respiratory Rate 16 12/13/24 19:01 Blood Pressure 145/67 H 12/13/24 19:01 Pulse Oximetry 97 12/13/24 19:01 Oxygen Delivery Method Room Air 12/13/24 19:01 Course Orders Ordered: ED Orders 12/13/24 19:15 XR chest 1V Stat EKG-12 Lead Stat RT Consult Eval and Treat NOW 12/13/24 19:55 Complete Blood Count AUTO DIFF Stat Comprehensive Metabolic Panel Stat Lactate (Lactic Acid) Stat Lipase Stat PTT Partial Thromboplastin Zack Stat Procalcitonin Stat Prothrombin Time INR Stat 12/13/24 20:35 Blood Culture Stat 12/13/24 23:00 Respiratory Panel (Film Array) Stat Ondansetron HCl (Ondansetron 4 Mg/2 Ml Inj) 4 mg IV NOW PRN PRN Reason: Nausea And Vomiting Ondansetron HCl (Ondansetron 4 Mg Odt) 4 mg PO NOW PRN PRN Reason: Nausea And Vomiting Discontinued Medications Sodium Chloride (Normal Saline 0.9%) 1,000 mls @ 1,000 mls/hr IV BOLUS ONE Stop: 12/13/24 20:13 Last Infusion: 12/13/24 22:35 Dose: Infused Documented By: Admin: 12/13/24 21:35 Dose: 1,000 mls/hr Documented By: PETEY Cefepime HCl 2 gm/ Sodium (Chloride) 100 mls @ 200 mls/hr IV NOW ONE Stop: 12/13/24 22:35 Last Admin: 12/13/24 22:52 Dose: 200 mls/hr Documented By: PETEY Sodium Chloride (Normal Saline 0.9%) 1,000 mls @ 1,000 mls/hr IV BOLUS ONE Stop: 12/13/24 23:33 Last Admin: 12/13/24 22:51 Dose: 1,000 mls/hr Documented By: PETEY Vital Signs Vital signs: Vital Signs - 8 hr 12/13/24 19:01 12/13/24 21:25 12/13/24 21:30 Temperature 98.8 F Pulse Rate 80 81 Respiratory Rate 16 22 Blood Pressure 145/67 H 134/70 Pulse Oximetry 97 Oxygen Delivery Method Room Air 12/13/24 21:30 12/13/24 22:00 12/13/24 22:00 Temperature 98.8 F Pulse Rate 83 80 Respiratory Rate 20 15 Blood Pressure 131/71 Pulse Oximetry 98 97 Oxygen Delivery Method 12/13/24 22:30 12/13/24 22:30 12/13/24 23:00 Temperature Pulse Rate 82 Respiratory Rate 18 Blood Pressure 124/83 117/70 Pulse Oximetry 97 Oxygen Delivery Method 12/13/24 23:00 12/13/24 23:30 12/13/24 23:30 Temperature Pulse Rate 81 82 Respiratory Rate 14 15 Blood Pressure 121/62 Pulse Oximetry 97 99 Oxygen Delivery Method MDM - Fever Differential Diagnosis Differential diagnosis: Likely cellulitis, gastroenteritis, community acquired pneumonia, viral infection, sepsis and other (Pancytopenia) Lab Data 12/13/24 19:55 12/13/24 19:55 Labs: Lab Results 12/13/24 12/13/24 Range/Units 19:55 23:00 WBC 3.5 L (4.5-11.0) X10^3/uL RBC 3.08 L (4.0-5.2) X10^6/uL Hgb 10.0 L (12.0-16.0) g/dL Hct 27.9 L (36-46) % MCV 90.8 (80-100) fL MCH 32.4 (26-34) PG MCHC 35.6 (30-36) % RDW 14.4 (11.6-14.8) % Plt Count 34 L* (150-400) X10^3/uL Neut % (Auto) 85.7 H (50-75) % Lymph % (Auto) 3.8 L (25-40) % [place] % (Auto) 8.5 (3-14) % Eos % (Auto) 1.7 L (2-4) % Baso % (Auto) 0.3 (0-2) % Neut # (Auto) 3000 (0520-7534) /uL Lymph # (Auto) 100 L (0302-0787) /uL [place] # (Auto) 300 (0-900) /uL Eos # (Auto) 100 (0-450) /uL Baso # (Auto) 0 (0-100) /uL Platelet Estimate Decreased on smear RBC Morphology Normal morphology PT 19.4 H (9.4-12.5) SECONDS INR 1.7 H (0.9-1.3) APTT 36 (25.1-36.5) SECONDS Sodium 139 (137-145) mmol/L Potassium 3.9 (3.4-5.1) mmol/L Chloride 109 H (98-107) mmol/L Carbon Dioxide 21 L (22-32) mmol/L BUN 18 H (7-17) mg/dL Creatinine 1.20 H (0.52-1.04) mg/dL Estimated GFR 50 L (>60) mL/min BUN/Creatinine Ratio 15.0 (6-22) Glucose 106 H (70-99) mg/dL Lactate 1.2 (0.7-2.1) mmol/L Calcium 9.0 (8.4-10.2) mg/dL Total Bilirubin 1.3 (0.2-1.3) mg/dL AST 39 H (14-36) IU/L ALT 24 (<35) IU/L Alkaline Phosphatase 74 (38-126) U/L Total Protein 7.4 (6.3-8.2) g/dL Albumin 4.0 (3.5-5.0) g/dL Globulin 3.4 (1.7-4.1) g/dL Albumin/Globulin Ratio 1.2 (1.0-2.8) Lipase 88 (23-300) U/L Procalcitonin 0.058 (<0.5) ng/mL Chlamy pneumoniae PCR Not detected (Not Detect) Adenovirus (PCR) Not detected (Not Detect) B. pertussis DNA (PCR) Not detected (Not Detect) B.parapertussis DNA PCR Not detected (Not Detecte) Coronavirus OC43 (PCR) Not detected (Not Detect) Coronavirus HKU1 (PCR) Not detected (Not Detect) Coronavirus 229E (PCR) Not detected (Not Detect) SARS-CoV-2 (PCR) Not detected (Not Detecte) Coronavirus NL63 (PCR) Not detected (Not Detect) Human Metapneumovir PCR Not detected (Not Detect) Influenza Type A (PCR) Not detected (Not Detect) Influenza Type B (PCR) Not detected (Not Detect) M. pneumoniae (PCR) Not detected (Not Detect) Parainfluenza 1 (PCR) Not detected (Not Detect) Parainfluenza 2 (PCR) Not detected (Not Detect) Parainfluenza 3 (PCR) Not detected (Not Detect) Parainfluenza 4 (PCR) Not detected (Not Detect) RSV (PCR) Not detected (Not Detect) Entero/Rhino (PCR) Not detected (Not Detect) Imaging Data Chest x-ray: Radiologist's Impression: [place] [address] XRay Report Signed Patient: Freda Garcia MR#: [id number] : 1955 Acct:[id number] Age/Sex: 69 / F Date of Service: 12/13/24 Loc: ED Accession Number: [id number] Procedure: XR chest 1V Ordering Provider: Herberth Lopez D.O. PROCEDURE: XR CHEST 1V INDICATIONS: suspected sepsis TECHNIQUE: One view of the chest was acquired. COMPARISON: [facility] , CHEST 1 VIEW, 05/06/2016, 11:55. FINDINGS: Surgical changes and devices: None. Lungs and pleura: Lungs are clear. No pleural effusions or pneumothorax. Mediastinum: Mediastinal contours appear normal. Heart size is normal. Bones and chest wall: No suspicious bony lesions. Overlying soft tissues appear unremarkable. IMPRESSION: No acute pulmonary process. MDM Narrative Medical decision making narrative: Patient is a 69-year-old female with a history of liver transplant in 2007 at [facility] secondary to primary sclerosing cholangitis, patient also with a history of portal hypertension upper GI bleed, presenting for fever after EGD performed yesterday. She states that she noticed her temperature was as high as 104? F yesterday, she states that she is currently not complaining of any symptoms but was instructed to come to the emergency department if she developed a fever. She has been compliant with all of her antirejection medications not on steroids not on any blood thinners. She stated that her EGD was fine no banding or intervention is needed. Patient does also have a history of pancytopenia, patient not complaining of any bleeding, patient's platelets 34, she is near baseline in the 40s, she is not having any active bleeding, no indication for transfusion at this time. Patient also with a leukopenia near baseline, given patient with history of fever and immunocompromised we will give dose of cefepime, call placed out to transplant team to discuss further evaluation care of the patient. 2244: Discussed case with transplant team at [facility], state that they will reach out to provider and call back 2302: Discussed case with transplant team and hematology oncologist Dr. Napoles, who states that given lab work at baseline, as well as no other signs of infectious causes, he agrees with the current workup and states patient is safe for discharge home no recommendation for oral antibiotics at this time. 7.9.25 @ 0012: Patient re-evaluated no new complaints at this time, formed her of her negative viral panel, as well as recommendation by transplant team and Hematology Oncology, she is agreeable with being discharged home with outpatient follow up, patient is well-appearing nontoxic, lab work is at baseline, she was given strict return precautions and agrees to being discharged home with outpatient follow up Discharge Plan Departure Patient Disposition: Home Clinical Impression: Pancytopenia Activity Restrictions/Additional Instructions: Please follow up with your GI doctor as well as your transplant team and your primary care doctor Please read the discharge instructions sheet carefully and bring all papers to all doctor follow-up visits, as it may contain information that your doctor may want to see. Disease processes change and evolve, if your symptoms worsen or if you develop any new symptoms that are concerning to you please return for evaluation. Your evaluation today does not show any evidence of any life-threatening/serious illnesses requiring admission to the hospital or surgery. Please follow-up with your doctor for re-evaluation in approximately 1 day. Seek immediate medical attention for any worrisome symptoms. *If you do not have a primary care provider please contact the [facility] Resource line at [phone]. They will ask some questions about your medical history and help get you set up with a doctor in the community. Prescriptions: No Action tacrolimus 1 MG capsule 0.5 mg PO BID Qty: 0 Patient Comments: 0.5 mg BID metoprolol tartrate 50 MG tablet 50 mg PO BID Qty: 0 Diphenhydramine Hydrochloride (BENADRYL) 25 mg PO Q DAY PRN (Reason: Allergy Symptoms) Qty: 0 CMP Estriol Cream 0.2% See Rx Instructions .ROUTE .COMPLEX Qty: 30 3RF Rx Instructions: Apply Small amount to external genitalia 3x weekly estradiol 10 mcg tablet 10 mcg vaginal 3XW Qty: 36 0RF multivitamin Tablet 1 tab PO DAILY ondansetron 4 mg tablet,disintegrating 4 mg PO Q6H PRN (Reason: nausea and vomiting) Qty: 14 0RF promethazine 12.5 mg suppository 12.5 mg IL Q4-6H PRN (Reason: nausea and vomiting) Qty: 12 0RF polyethylene glycol 3350 [Miralax] 17 gram/dose powder 17 g PO DAILY Qty: 510 0RF ondansetron HCl [Zofran] 4 mg tablet 4 mg PO Q6H Qty: 7 0RF promethazine 25 mg suppository 25 mg IL Q4-6H PRN (Reason: post op nausea) Qty: 1 0RF vancomycin 125 mg capsule 125 mg PO DIRECTED Qty: 85 0RF Rx Instructions: 1T PO QID for 14D then 1T PO BID for 7D then 1T PO QD for 7D then 1T PO every other day until gone hydromorphone [Dilaudid] 2 mg tablet 2 mg PO Q6H PRN (Reason: pain) Qty: 14 0RF ondansetron 4 mg tablet,disintegrating 4 mg PO Q8H PRN (Reason: nausea and vomiting) Qty: 10 0RF Referrals: Herberth Aldrich MD [Primary Care Provider, Family Practice] Stand Alone Forms: Patient Portal/API
[2024-12-13] MEDS: CEFEPIME 2 GM in SODIUM CHLORIDE 0.9% 100 ML IV (22:52)
[2024-12-13 23:51] LABS: Coronavirus NL 63 Not Detected (Not Detect); SARS- CoV-2 Not Detected (Not Detecte)
[2024-12-14 00:30] VITALS: TEMP 36.8
== END 2024-12-14 00:31 | disposition home or self-care (01) ==
PROVIDERS: Emergency Provider Student in an Organized Health Care Education/Training Program; PCP Family Medicine
DX: D61.818 Other pancytopenia (principal); Z94.4 Liver transplant status
CPT/HCPCS: 36415; 71045; 80053; 83605; 83690; 84145; 85025; 85610; 85730; 87040; 87633; 96361; 96365; 99284; J0692